=== PATIENT | male | born 1975 | race Caucasian/White ===

== ENCOUNTER 2017-05-03 13:02 | Outpatient (RCR) | payer MEDICAID ==
[~2017-05-03 13:02] MED LIST: HALO5TAB17; HYDR1TAB PO; LEVO75TA57; LITH8SOL6; LRT10T PO; LVT.1T PO; MUPI22OI29 EXT; NAPR-243 PO; NAPR-915 PO; NF-FLON16G; PROP1TAB77 PO; SULF1TAB7 PO; [UNRECOGNIZED DRUG - CODE] PO
== END 2017-05-03 13:25 | disposition home or self-care (01) ==
PROVIDERS: ATTEND Family Medicine
DX: M25.561 Pain in right knee (principal)

== ENCOUNTER → 2017-06-06 | Outpatient (CLI) | payer MEDICAID ==
--- NOTE | 2017-06-06 15:26 | Diagnostic Imaging Report ---
PROCEDURE: MRI right joint lower extremity without contrast. TECHNIQUE: Multiplanar, multisequence non contrast-enhanced MRI of the right lower extremity was accomplished. INDICATION: Knee pain. FINDINGS: There are no previous MRI examinations available for comparison. The plain film examination of the right knee performed on 12/22/2015 failed to show any sign of an acute abnormality. On this study, however, there is deformity of the lateral half of the patella. I suspect that this is a sequela of prior trauma. The patellofemoral space itself is fairly well maintained. There is no other abnormal signal arising from the osseous structures to suggest bone edema or a fracture. There is mild degenerative disease involving the articular surface of the medial femoral condyle. The articular surface of the lateral femoral condyle is fairly well maintained. The anterior and posterior cruciate ligaments are intact. The anterior cruciate ligament is not as distinct as usually seen, but there is no clear evidence for a tear. The quadriceps and infrapatellar tendons, the collateral ligaments, the biceps femoris tendon, and the iliotibial band are unremarkable for an acute abnormality. There is no abnormal signal arising from either meniscus to indicate a tear. There is a small joint effusion present. There is no sign of a Walsh's cyst. IMPRESSION: 1. There is deformity of the lateral half of the patella. Most likely, this is a sequela of prior trauma. There is no acute bony abnormality identified. 2. The anterior cruciate ligament is not as distinct as usually seen, but the ACL appears to be intact. The other major ligaments and tendons are unremarkable for an acute abnormality. 3. There is no evidence for a tear of either meniscus. Dictated by: Dictated on workstation # [id number]
== END ==
LOC: RAD 13:13
PROVIDERS: ATTEND Family Medicine
DX: M22.8X1 Other disorders of patella, right knee (principal); M25.461 Effusion, right knee
CPT/HCPCS: 73721

== ENCOUNTER 2017-06-16 00:36 | Emergency (ER) | payer MEDICARE, MEDICAID ==
[~2017-06-16] VITALS: Ht 180.3 cm; Wt 88.5 kg
--- NOTE | 2017-06-16 00:55 | ED Integumentary General ---
General Chief Complaint: Bite-Animal/Human/Insect Stated Complaint: DOG BITE Nursing Triage Note: Patient reports being bit by a dog 2 hours ago on L calf Source: patient, EMS Exam Limitations: no limitations History of Present Illness Date Seen by Provider: Jun 16, 2017 Time Seen by Provider: 00:42 Initial Comments The patient presents to ER by EMS with a chief complaint of 2 hours prior to arrival he was walking down an alley way towards a friend's house when a dog bit him on the left calf through his blue jeans. It did not draw much blood and his pain is under control. He had a tetanus shot in 2014 at this ER. The clinical nurse leader of the dog said that the dog was up-to-date on its vaccinations but one of the neighbor said it was not. The patient has thyroid disorder but no other significant medical history. He is not having any fevers, chills, nausea, vomiting. EMS reports the wound is scabbed over by the time they got to it. Allergies and Home Medications Allergies Uncoded Allergies: BEE AND WASPS (Allergy, Unknown, 11/04/14) POISON YASMINE AND OAK (Allergy, Unknown, 11/04/14) Home Medications Hydrocodone Bit/Acetaminophen 1 Each Tablet, 1-2 EACH PO Q4HR PRN Prescribed by: SUSAN CABALLERO on 06/17/102114 Levothyroxine Sodium 100 Mcg Tablet, 1 EACH PO DAILY, (Reported) Loratadine 10 Mg Box, 1 EACH PO DAILY PRN, (Reported) Naproxen 500 Mg Tablet, 500 MG PO Q12H PRN for PAIN Prescribed by: DEQUAN SWEENEY on 11/04/14 0257 Patient Home Medication List Home Medication List Reviewed: Yes Constitutional: No chills, No diaphoresis, No fever, No malaise EENTM: No ear discharge, No ear pain Respiratory: No cough, No short of breath Cardiovascular: No chest pain, No palpitations Gastrointestinal: No abdominal pain, No constipation, No diarrhea Genitourinary: No discharge, No dysuria Musculoskeletal: No back pain, No joint pain Skin: see HPI Past Izpgtav-Nziequ-Cnikiw Hx Patient Social History Alcohol Use: Denies Use Recreational Drug Use: Yes (SMOKES 1 PPD) Recent Foreign Travel: No Contact w/Someone Who Travel: No Recent Infectious Disease Expo: No Physical Abuse: No Sexual Abuse: No Past Medical History Surgeries: Yes Orthopedic Respiratory: No Cardiac: No Neurological: No Gastrointestinal: No Musculoskeletal: No Endocrine: Yes Hypothyroidsim Cancer: No 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) Anxiety, Personality Disorder Nursing Suicide Risk Score: 0 Integumentary: No Blood Disorders: No Physical Exam Vital Signs Vital Signs - First Documented 06/16/17 00:40 Temp 98.2 Pulse 78 Resp 18 B/P (MAP) 122/87 (99) Pulse Ox 97 Capillary Refill : Less Than 3 Seconds General Appearance: WD/WN, no apparent distress HEENT: PERRL/EOMI, pharynx normal Cardiovascular: normal peripheral pulses, no edema, no murmur Respiratory: no respiratory distress, no accessory muscle use Gastrointestinal: non tender, soft Neurologic/Psychiatric: alert, oriented x 3 Skin: other (posterior left calf with a 2 mm wide very superficial puncture of the epidermis but not through the dermis and very small flap of skin. No other wounds seen.) Progress/Results/Core Measures Vital Signs/I&O 06/16/17 00:40 Temp 98.2 Pulse 78 Resp 18 B/P (MAP) 122/87 (99) Pulse Ox 97 Blood Pressure Mean: 99 Progress Note : Time: 00:52 Progress Note The wound was cleaned thoroughly with chlorhexidine soap water, sterile saline and then based in Betadine. The wound was explored using sterile forceps and found that there was no actual puncture wound through the dermis just a flap of skin about 2 x 2 millimeters. The flap of skin was excised and irrigated thoroughly and then bathed in Betadine. The wound will be dressed and the patient was counseled how to keep it clean. Because of the very superficial nature of the wound and the non-concerning behavior of the dog per the patient history we will clean this wound locally dress it and let him go home without antibiotics or other prophylaxis. Tetanus shot is up-to-date. We have encouraged him to keep an eye on the dog and if has any problems the first 10 days report to his primary care doctor immediately. Departure Impression Primary Impression: Dog bite Qualified Codes: W54.0XXA - Bitten by dog, initial encounter Disposition: 01 HOME, SELF-CARE Condition: Stable Departure-Patient Inst. Decision time for Depature: 00:54 Referrals: LAURY FALLON MD (PCP/Family) Primary Care Physician Patient Instructions: Animal Bites (DC) Add. Discharge Instructions: Clean the wound with soap and water at least once a day. You may put a Band-Aid over the wound to heal like. Antibiotics are not necessary but if you start to have redness, swelling, tightness or pain in the leg you can follow-up with the primary care physician. All discharge instructions reviewed with patient and/or family. Voiced understanding. Copy Copies To 1: LAURY FALLON MD, TITUS J Jun 16, 2017 00:55
[2017-06-16 00:57] VITALS: BP 122/87
== END 2017-06-16 00:57 | disposition home or self-care (01) ==
LOC: EDUNIT# 00:36 → ER 00:37
DX: S81.852A Open bite, left lower leg, initial encounter (principal); E03.9 Hypothyroidism, unspecified; F41.9 Anxiety disorder, unspecified; Z91.030 Bee allergy status; W54.0XXA Bitten by dog, initial encounter
CPT/HCPCS: 99283

== ENCOUNTER 2017-09-29 20:17 | Emergency (ER) | payer MEDICARE, MEDICAID ==
[~2017-09-29] VITALS: Ht 177.8 cm; Wt 99.8 kg
[2017-09-29] MEDS ORDERED: RISP12.5 (20:23)
[2017-09-29] MEDS ORDERED: MONT10TA24 (20:23)
[2017-09-29] MEDS ORDERED: SIMV10TA3 (20:23)
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
[2017-09-29] MEDS ORDERED: TETANUS,DIPTH,PERTUSS P/F (BOOSTRIX) 0.5 ML VIAL IM ONE (20:30)
[2017-09-29] MEDS ORDERED: NS 100 ML (IVPB) BAG IV ONE (20:30)
[2017-09-29] MEDS ORDERED: IOHEXOL 350 MG/ML 100 ML (OMNIPAQUE 350) VIAL IV ONE (20:30)
[2017-09-29 20:45] LABS: BASOPHILS % (AUTO) 0 % (0-10); EOSINOPHILS # (AUTO) 0.1 10^3/uL (0.0-0.3); EOSINOPHILS % (AUTO) 1 % (0-10); HEMATOCRIT 40 % (40-54); LYMPHOCYTES # (AUTO) 3.1 X 10^3 (1.0-4.0); LYMPHOCYTES % (AUTO) 41 % (12-44); MEAN CORPUSCULAR HEMOGLOBIN 31 PG (25-34); MEAN CORPUSCULAR HGB CONC 35 G/DL (32-36); MEAN CORPUSCULAR VOLUME 89 FL (80-99); MEAN PLATELET VOLUME 9.3 FL (7.4-10.4); MONOCYTES # (AUTO) 0.5 X 10^3 (0.0-1.0); MONOCYTES % (AUTO) 7 % (0-12); NEUTROPHILS # (AUTO) 3.9 X 10^3 (1.8-7.8); NEUTROPHILS % (AUTO) 51 % (42-75); PLATELET COUNT 299 10^3/uL (130-400); RED BLOOD COUNT 4.48 10^6/uL (4.35-5.85); RED CELL DISTRIBUTION WIDTH 12.7 % (10.0-14.5); WHITE BLOOD COUNT 7.6 10^3/uL (4.3-11.0)
[2017-09-29 21:03] LABS: ALANINE AMINOTRANSFERASE 27 U/L (0-55); ALBUMIN 4.2 GM/DL (3.2-4.5); ALKALINE PHOSPHATASE 77 U/L (40-136); BILIRUBIN,TOTAL 0.4 MG/DL (0.1-1.0); BUN/CREATININE RATIO 17; CALCIUM 9.6 MG/DL (8.5-10.1); CARBON DIOXIDE 22 MMOL/L (21-32); CHLORIDE 108 MMOL/L (98-107); CREATININE SERUM 0.89 MG/DL (0.60-1.30); GFR ESTIMATED > 60; GLUCOSE 111 MG/DL (70-105); POTASSIUM 3.8 MMOL/L (3.6-5.0); SODIUM 141 MMOL/L (135-145); TOTAL PROTEIN 6.9 GM/DL (6.4-8.2)
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
--- NOTE | 2017-09-29 21:15 | Diagnostic Imaging Report ---
INDICATION: Left arm pain, trauma COMPARISON: None FINDINGS: Two views of the left humerus demonstrate no fracture or dislocation. The articular surfaces are normal. IMPRESSION: Negative left humerus Dictated by: Dictated on workstation # [id number]
[2017-09-29] MEDS ORDERED: RX-CEPHALEXIN (KEFLEX) 250 MG CAP PPK#4 PO STA (21:19)
[2017-09-29] MEDS ORDERED: RX-HYDROCODONE/APAP 5/325 MG #4 TAB PK PO PRN (21:30)
[2017-09-29 21:31] VITALS: BP 118/78
== END 2017-09-29 21:32 | disposition home or self-care (01) ==
LOC: EDUNIT# 20:17 → ER 20:20
DX: S50.812A Abrasion of left forearm, initial encounter (principal); S30.811A Abrasion of abdominal wall, initial encounter; E03.9 Hypothyroidism, unspecified; F41.9 Anxiety disorder, unspecified; R40.2142 Coma scale, eyes open, spontaneous, at arrival to emergency department; R40.2252 Coma scale, best verbal response, oriented, at arrival to emergency department; R40.2362 Coma scale, best motor response, obeys commands, at arrival to emergency department; V18.4XXA Pedal cycle driver injured in noncollision transport accident in traffic accident, initial encounter
CPT/HCPCS: 36415; 70450; 71260; 72125; 73060; 74177; 80053; 80320; 85025; 90471; 90715

== ENCOUNTER 2018-02-10 19:16 | Inpatient (IN) | payer MEDICARE, MEDICAID ==
[~2018-02-10] VITALS: Ht 177.8 cm; Wt 108.0 kg
[~2018-02-10 19:16] MED LIST changes: +MONT10TA24 PO; +RISP12.5; +SIMV10TA3
[2018-02-10] MEDS ORDERED: VANCOMYCIN INJECTION 1,500 MG in NS IV 500 ML 500 ML IV SCH (19:30)
[2018-02-10] MEDS ORDERED: IBUPROFEN 800 MG (MOTRIN) TAB PO ONE (19:30)
[2018-02-10] MEDS ORDERED: fentaNYL INJECTION 100 MCG/2 ML AMP IVP ONE (19:30)
[2018-02-10] MEDS ORDERED: ENOXAPARIN 100 MG/1 ML (LOVENOX) SYR SC ONE (19:30)
[2018-02-10] MEDS ORDERED: cefTRIAXone FOR IV USE 1,000 MG in NS (IVPB) 50 ML IV ONE (19:30)
[2018-02-10] MEDS ORDERED: NS IV 1000 ML 1,000 ML IV SCH (19:30)
--- NOTE | 2018-02-10 19:34 | ED Lower Extremity ---
General Stated Complaint: LEFT LEG SWELLING,FEVER Source: patient, caregiver Exam Limitations: no limitations History of Present Illness Date Seen by Provider: Feb 10, 2018 Time Seen by Provider: 19:31 Initial Comments This new [facility] client presents to ER with his caregiver with reports of left leg redness swelling and pain since yesterday. No known injuries. He has never had this happen before. He did notice some fevers and chills earlier today. He states this began yesterday while he was at work. He is relatively high functioning MR. Onset: yesterday Severity: moderate Pain/Injury Location: left knee Modifying Factors: Worse With Movement Allergies and Home Medications Allergies Uncoded Allergies: BEE AND WASPS (Allergy, Unknown, 11/04/14) POISON YASMINE AND OAK (Allergy, Unknown, 11/04/14) Home Medications Levothyroxine Sodium 100 Mcg Tablet, 1 EACH PO DAILY, (Reported) Loratadine 10 Mg Box, 1 EACH PO DAILY PRN, (Reported) Patient Home Medication List Home Medication List Reviewed: Yes Review of Systems Constitutional: see HPI, chills, fever EENTM: see HPI Respiratory: no symptoms reported Cardiovascular: no symptoms reported Genitourinary: no symptoms reported Musculoskeletal: no symptoms reported Skin: see HPI Psychiatric/Neurological: No Symptoms Reported Past Sjndvmu-Vnfcfn-Oxlrne Hx Patient Social History Type Used: Cigarettes Recent Foreign Travel: No Contact w/Someone Who Travel: No Recent Hopitalizations: No Immunizations Up To Date Tetanus Booster (TDap): Less than 5yrs Seasonal Allergies Seasonal Allergies: No Past Medical History Surgeries: Yes Orthopedic Respiratory: No Cardiac: No Neurological: No Gastrointestinal: No Musculoskeletal: No Endocrine: Yes Hypothyroidsim Cancer: No 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) Anxiety, Personality Disorder Integumentary: No Blood Disorders: No Physical Exam Vital Signs Vital Signs - First Documented 02/10/18 19:23 Temp 101.5 Pulse 107 Resp 18 B/P (MAP) 120/87 (98) Pulse Ox 96 O2 Delivery Room Air Capillary Refill : Height, Weight, BMI Height: 5'10.00" Weight: 220lbs. oz. 99.130849ap; 27.19 BMI Method:Stated General Appearance: WD/WN, no apparent distress HEENT: PERRL/EOMI, normal ENT inspection Cardiovascular: no murmur, tachycardia (105 sinus) Respiratory: no respiratory distress, no accessory muscle use Gastrointestinal: normal bowel sounds, non tender Hips: bilateral hip non-tender, bilateral hip normal inspection, bilateral hip normal range of motion Legs: left leg other (circumferential erythema up to the proximal tib-fib on the left. No lymphangitis. Distally, this erythema terminates at the ankle and does not extend distal to that. There is no open or draining wound, no visualized or palpable abscess.) Knees: bilateral knee non-tender, bilateral knee normal inspection, bilateral knee normal range of motion Ankles: bilateral ankle non-tender, bilateral ankle normal inspection, bilateral ankle normal range of motion Feet: bilateral foot non-tender, bilateral foot normal inspection, bilateral foot normal range of motion Neurologic/Psychiatric: alert, normal mood/affect, oriented x 3 Skin: normal color, warm/dry Progress/Results/Core Measures Results/Orders Lab Results Laboratory Tests Test 02/10/18 19:33 Range/Units White Blood Count 11.7 H 4.3-11.0 10^3/uL Red Blood Count 4.42 4.35-5.85 10^6/uL Hemoglobin 13.9 13.3-17.7 G/DL Hematocrit 40 40-54 % Mean Corpuscular Volume 90 80-99 FL Mean Corpuscular Hemoglobin 31 25-34 PG Mean Corpuscular Hemoglobin Concent 35 32-36 G/DL Red Cell Distribution Width 13.2 10.0-14.5 % Platelet Count 210 130-400 10^3/uL Mean Platelet Volume 9.3 7.4-10.4 FL Neutrophils (%) (Auto) 79 H 42-75 % Lymphocytes (%) (Auto) 13 12-44 % Monocytes (%) (Auto) 8 0-12 % Eosinophils (%) (Auto) 0 0-10 % Basophils (%) (Auto) 0 0-10 % Neutrophils # (Auto) 9.2 H 1.8-7.8 X 10^3 Lymphocytes # (Auto) 1.5 1.0-4.0 X 10^3 Monocytes # (Auto) 0.9 0.0-1.0 X 10^3 Eosinophils # (Auto) 0.0 0.0-0.3 10^3/uL Basophils # (Auto) 0.0 0.0-0.1 10^3/uL Sodium Level 134 L 135-145 MMOL/L Potassium Level 3.9 3.6-5.0 MMOL/L Chloride Level 104 98-107 MMOL/L Carbon Dioxide Level 20 L 21-32 MMOL/L Anion Gap 10 5-14 MMOL/L Blood Urea Nitrogen 17 7-18 MG/DL Creatinine 0.99 0.60-1.30 MG/DL Estimat Glomerular Filtration Rate > 60 BUN/Creatinine Ratio 17 Glucose Level 112 H 70-105 MG/DL Lactic Acid Level 0.94 0.50-2.00 MMOL/L Calcium Level 8.9 8.5-10.1 MG/DL Corrected Calcium 9.0 8.5-10.1 MG/DL Total Bilirubin 0.5 0.1-1.0 MG/DL Aspartate Amino Transf (AST/SGOT) 21 5-34 U/L Alanine Aminotransferase (ALT/SGPT) 29 0-55 U/L Alkaline Phosphatase 70 40-136 U/L Total Protein 6.6 6.4-8.2 GM/DL Albumin 3.9 3.2-4.5 GM/DL My Orders Orders - CAMELIA BRAN APRN Blood Culture (02/10/18 19:27) Lactic Acid Analyzer (02/10/18 19:27) Cbc With Automated Diff (02/10/18:) Comprehensive Metabolic Panel (02/10/18:27) Iv Heplock-Insert (Order) (02/10/18:27) Ibuprofen Tablet (Motrin Tablet) (02/10/18 19:30) Fentanyl Injection (Sublimaze Injection (02/10/18 19:30) Ns Iv 1000 Ml (Sodium Chloride 0.9%) (02/10/18 19:30) Ceftriaxone For Iv Use (Rocephin For I (02/10/18 19:30) Vancomycin Injection (Vancomycin Injecti (02/10/18 19:30) Enoxaparin Injection (Lovenox Injection) (02/10/18 19:30) Medications Given in ED Current Medications Medications Dose Ordered Sig/Sujatha Route Start Time Stop Time Status Last Admin Dose Admin Enoxaparin Sodium 100 mg ONCE ONCE SC 02/10/18 19:30 02/10/18 19:31 DC 02/10/18 19:48 100 MG Fentanyl Citrate 50 mcg ONCE ONCE IVP 02/10/18 19:30 02/10/18 19:31 DC 02/10/18 19:47 50 MCG Ibuprofen 800 mg ONCE ONCE PO 02/10/18 19:30 02/10/18 19:31 DC 02/10/18 19:47 800 MG Vital Signs/I&O 02/10/18 19:23 Temp 101.5 Pulse 107 Resp 18 B/P (MAP) 120/87 (98) Pulse Ox 96 O2 Delivery Room Air Departure Communication (Admissions) Time/Spoke to Admitting Phy: 20:[address] Ledbetter. We will admit, IV Rocephin and vancomycin and discharged home. 1933- Is tachycardic at 105 on arrival, blood pressure is just fine at 120/87, oxygen saturation 95% on room air. He is febrile at 103.5 despite 1000 mg of Tylenol 2 hours ago. He is alert and oriented and able to converse with me appropriately. He'll need to be admitted for nonpurulent cellulitis. He should also have lower extremity venous Doppler done to rule out DVT though this is unlikely. Ultrasound isn't available at this time so I will order this for tomorrow morning and cover him with Lily ibarra. Impression Primary Impression: Cellulitis of left leg Disposition: HOME, SELF-CARE Condition: Stable Admissions Decision to Admit Reason: Admit from ER (General) Decision to Admit/Date: Feb 10, 2018 Time/Decision to Admit Time: 19:33 Departure-Patient Inst. Referrals: LAURY FALLON MD (PCP/Family) Primary Care Physician CAMELIA BRAN APRN Feb 10, 2018 19:34
[2018-02-10 19:45] LABS: BASOPHILS % (AUTO) 0 % (0-10); EOSINOPHILS % (AUTO) 0 % (0-10); HEMATOCRIT 40 % (40-54); HEMOGLOBIN 13.9 G/DL (13.3-17.7); LYMPHOCYTES # (AUTO) 1.5 X 10^3 (1.0-4.0); LYMPHOCYTES % (AUTO) 13 % (12-44); MEAN CORPUSCULAR HEMOGLOBIN 31 PG (25-34); MEAN CORPUSCULAR HGB CONC 35 G/DL (32-36); MEAN CORPUSCULAR VOLUME 90 FL (80-99); MEAN PLATELET VOLUME 9.3 FL (7.4-10.4); MONOCYTES # (AUTO) 0.9 X 10^3 (0.0-1.0); MONOCYTES % (AUTO) 8 % (0-12); NEUTROPHILS # (AUTO) 9.2 X 10^3 (1.8-7.8); NEUTROPHILS % (AUTO) 79 % (42-75); PLATELET COUNT 210 10^3/uL (130-400); RED BLOOD COUNT 4.42 10^6/uL (4.35-5.85); RED CELL DISTRIBUTION WIDTH 13.2 % (10.0-14.5); WHITE BLOOD COUNT 11.7 10^3/uL (4.3-11.0)
[2018-02-10 20:05] LABS: ALANINE AMINOTRANSFERASE 29 U/L (0-55); ALBUMIN 3.9 GM/DL (3.2-4.5); ALKALINE PHOSPHATASE 70 U/L (40-136); BILIRUBIN,TOTAL 0.5 MG/DL (0.1-1.0); BUN/CREATININE RATIO 17; CALCIUM 8.9 MG/DL (8.5-10.1); CARBON DIOXIDE 20 MMOL/L (21-32); CHLORIDE 104 MMOL/L (98-107); CREATININE SERUM 0.99 MG/DL (0.60-1.30); GFR ESTIMATED > 60; GLUCOSE 112 MG/DL (70-105); POTASSIUM 3.9 MMOL/L (3.6-5.0); SODIUM 134 MMOL/L (135-145); TOTAL PROTEIN 6.6 GM/DL (6.4-8.2)
--- OUTSIDE RECORDS SUMMARY | 2018-02-10 20:31 | XMS REPORT ---
Author Author JEYSON TULIO Organization [facility] Address [address] [place] [address] Care Team Providers Care Subscription Clerk Name Role Phone JEYSONTULIO Unavailable PROBLEMS Type Condition ICD9-CM Code [id number] Code Onset Dates Condition Status SNOMED Code Problem Anxiety F41.9 Active 96728353 Problem Intellectual disability F79 Active 18050861 Problem Intermittent explosive disorder F63.81 Active 11146844 ALLERGIES Substance Reaction Event Type Date Status Poison idalia and Poison [place] hives Non Drug Allergy July, Active Bees and Wasps anaphylaxis Non Drug Allergy July, Active ENCOUNTERS Encounter Location Date Diagnosis [place] [address] [place] [id number] [place] [address] 94484- 0496 Dec, [place] [address] [address]- 6867 Oct, Intermittent explosive disorder F63.81 ; Intellectual disability F79 ; Anxiety F41.9 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 [place] [id number] [place] [address] 84352- 7586 Sep, Intermittent explosive disorder F63.81 ; Intellectual disability F79 and Anxiety F41.9 [place] [address] [place] [address] [id number] [place] [address] 26428- 3136 July, Intermittent explosive disorder F63.81 ; Intellectual disability F79 and Anxiety F41.9 [place] [id number] [place] [address] 32398- 5709 Mar, Intermittent explosive disorder F63.81 ; Intellectual disability F79 and Anxiety F41.9 [place] [id number] [place] [address] 08804- 0046 Dec, Intermittent explosive disorder F63.81 ; Intellectual disability F79 and Anxiety F41.9 [facility] [address] [place] [address] [id number]- 5130 Sep, [facility] [id number] [place] [address] 90682- 5542 Sep, Intermittent explosive disorder F63.81 ; Intellectual disability F79 and Anxiety F41.9 [facility] [id number] [place] [address] [id number] May, Dental examination Z01.20 [facility] [id number] [place] [address] 11561- 0945 Mar, Intermittent explosive disorder F63.81 [facility] [id number] [place] [address] 80968- 6264 Jan, Intermittent explosive disorder F63.81 [facility] [id number] [place] [address] [phone] Dec, Dental examination Z01.20 [facility] [id number] [place] [address] 46246- 8366 Nov, [facility] [id number] [place] [address] 19476- 2566 Aug, Intermittent explosive disorder F63.81 [facility] [id number] [place] [address] 31049- 6362 May, Intermittent explosive disorder F63.81 [facility] [address] [place] [address] [phone] Apr, Dental examination Z01.20 [facility] [id number] [place] [address] [phone] Feb, Dental examination Z01.20 [facility] [id number] [place] [address] 23030- 3166 Feb, Intermittent explosive disorder F63.81 [facility] [id number] [place] [address] 04512- 5114 Nov, Mood disorder 296.90 and Intermittent explosive disorder 312.34 [facility] [address] [id number] [phone] 12 Aug, 2014 Dental examination V72.2 [facility] [address] [address] 14 Jun, 2014 [facility] [id number] [place] [address] 10267- 4638 Jun, [facility] [address] [place] [address] 81075- 9882 May, [facility] [id number] [place] [address] 62695- 8338 May, [facility] [id number] [place] [address] 13950- 2633 Feb, [facility] [id number] [place] [address] 95017- 4531 Feb, [facility] [address] [address] 0738 Dec, [facility] [address] [place] [address] 96618- 6250 Dec, [facility] [address] [address]- 5011 Nov, [facility] [address] [address]- 0122 Nov, [facility] [address] [address]- 5402 Sep, [facility] [id number] [place] [address] 43103- 6036 Sep, [facility] [address] [address]- 4902 Apr, [facility] [id number] [place] [address] 68179- 1179 Apr, [facility] [address] [facility] [id number] [place] [address]- 0194 Jan, [facility] [address] [facility] [id number] [place] [address] Jan, [facility] [address] [facility] [id number] [place] [address]- 6669 Oct, [facility] [address] [facility] [id number] [place] [address]- 8526 Sep, [facility] [address] [facility] [id number] [place] [address]- 3750 Jun, [facility] [address] [facility] [id number] [place] [address]- 9679 Feb, [facility] [address] [facility] [id number] [place] [address]- 8428 Feb, [facility] [address] [facility] [id number] [address]- 0887 Dec, [facility] [address] [facility] [id number] [address]- 4794 Dec, [facility] [address] [facility] [id number] [place] [address]- 0175 Dec, [facility] [address] [facility] [id number] [address]- 5927 Dec, [facility] [address] [facility] [id number] [place] [address]- 7381 Oct, [facility] [address] [facility] [id number] [place] [address]- 6775 Sep, [facility] [address] [facility] [id number] [place] [address]- 5214 Jun, [facility] [address] [facility] [id number] [address]- 9668 Jan, IMMUNIZATIONS No Known Immunizations SOCIAL HISTORY Never Assessed REASON FOR VISIT f/u DAJA PLAN OF CARE Activity Details Follow Up 3 Months Reason: f/u VITAL SIGNS Height 71 in 2017-07-05 Weight 220 lbs 2017-07-05 Heart Rate 84 bpm 2017-07-05 Respiratory Rate 20 2017-07-05 BMI 30.68 kg/m2 2017-07-05 Blood pressure systolic 118 mmHg 2017-07-05 Blood pressure diastolic 74 mmHg 2017-07-05 MEDICATIONS Medication Instructions Dosage Frequency Start Date End Date Duration Status Ventolin HFA 90 MCG/ACT Inhalation every 4 hrs 2 puffs as needed 4h Active Synthroid 100 MCG Orally Once a day 1 tablet 24h Active Zoloft 50 mg Orally Once a day 1 tablet 24h Active HydrOXYzine HCl 50 mg Orally Once a day as needed for anxiety/anger 1-2 tablets Active Lotrisone 1-0.05 % 1 inch by Topical route 2 times per day May, Active Flexeril 10 MG Orally Three times a day 1 tablet 8h Active Robitussin DM 100-10 MG/5ML Orally every 4 hrs 10 ml as needed 4h Active Tylenol 325 MG Orally every 6 hrs by Oral route q6hr prn pain 6h Jun, Active Zocor 10 mg 1 Tablet by Oral route 1 time per day Oct, Active Visine Tears Active Singulair 10 MG Orally Once a day 1 tablet in the evening 24h Active Afrin Nasal [place] Not-Taking immodium 1 tab Active Motrin 800 MG Orally Three times a day 1 tablet 8h Active Mucinex D 60-600 MG Orally Twice a day 1 tablet as needed 12h Active RESULTS No Results PROCEDURES No Known procedures INSTRUCTIONS MEDICATIONS ADMINISTERED No Known Medications MEDICAL (GENERAL) HISTORY Type Description Date Medical History Thyroid Problems Medical History HLP Medical History Back Trouble Medical History Denies any hx of heart problem or seizure Surgical History Left Knee surgery 2015 Hospitalization History Surgery 2015 Hospitalization History [facility] several times
--- OUTSIDE RECORDS SUMMARY | 2018-02-10 20:31 | XMS REPORT ---
Author Author JEYSON TULIO Organization [facility] Address [address] [place] [address] Care Team Providers Care Receiving And Processing Supervisor Name Role Phone JEYSONTULIO Unavailable PROBLEMS Type Condition ICD9-CM Code [id number] Code Onset Dates Condition Status SNOMED Code Problem Anxiety F41.9 Active 04904570 Problem Intellectual disability F79 Active 90418503 Problem Intermittent explosive disorder F63.81 Active 33414142 ALLERGIES Substance Reaction Event Type Date Status Poison idalia and Poison [place] hives Non Drug Allergy Sep, Active Bees and Wasps anaphylaxis Non Drug Allergy Sep, Active ENCOUNTERS Encounter Location Date Diagnosis [place] [address] [place] [address] [id number] [place] [address] 10778- 9026 Dec, [place] [id number] [place] [address] 28830- 0005 Oct, Intermittent explosive disorder F63.81 ; Intellectual disability F79 ; Anxiety F41.9 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 [place] [id number] [place] [address] 78699- 9076 Sep, Intermittent explosive disorder F63.81 ; Intellectual disability F79 and Anxiety F41.9 [place] [address] [place] [address] [id number] [place] [address] 60409- 8347 July, Intermittent explosive disorder F63.81 ; Intellectual disability F79 and Anxiety F41.9 [place] [id number] [place] [address] 96194- 7403 Mar, Intermittent explosive disorder F63.81 ; Intellectual disability F79 and Anxiety F41.9 [place] [id number] [place] [address] 70931- 2853 Dec, Intermittent explosive disorder F63.81 ; Intellectual disability F79 and Anxiety F41.9 [facility] [address] [place] [address] [id number]- 9738 Sep, [facility] [id number] [place] [address] 40993- 0907 Sep, Intermittent explosive disorder F63.81 ; Intellectual disability F79 and Anxiety F41.9 [facility] [id number] [place] [address] [phone] May, Dental examination Z01.20 [facility] [id number] [place] [address] 46991- 1764 Mar, Intermittent explosive disorder F63.81 [facility] [id number] [place] [address] 17725- 1477 Jan, Intermittent explosive disorder F63.81 [facility] [id number] [place] [address] [phone] Dec, Dental examination Z01.20 [facility] [id number] [place] [address] 72693- 2303 Nov, [facility] [id number] [place] [address] 69843- 4587 Aug, Intermittent explosive disorder F63.81 [facility] [id number] [place] [address] 23534- 7851 May, Intermittent explosive disorder F63.81 [facility] [address] [place] [address] [id number] Apr, Dental examination Z01.20 [facility] [id number] [place] [address] [id number] Feb, Dental examination Z01.20 [facility] [id number] [place] [address] 97244- 9006 Feb, Intermittent explosive disorder F63.81 [facility] [id number] [place] [address] 11816- 3272 Nov, Mood disorder 296.90 and Intermittent explosive disorder 312.34 [facility] [address] [id number] [id number] 12 Aug, 2014 Dental examination V72.2 [facility] [address] [address]- 0130 14 Jun, 2014 [facility] [id number] [place] [address] 52831- 6790 Jun, [facility] [id number] [place] [address] 76859- 2467 May, [facility] [id number] [place] [address] 98533- 2646 May, [facility] [id number] [place] [address] 12420- 7448 Feb, [facility] [id number] [place] [address] 51585- 3708 Feb, [facility] [address] [address]- 1760 Dec, [facility] [id number] [place] [address] 34511- 1908 Dec, [facility] [address], [place] [address]- 5073 Nov, [facility] [address], [place] [address]- 8932 Nov, [facility] [address], [place] [address]- 9514 Sep, [facility] [id number] [place] [address] 25633- 1169 Sep, [facility] [address], [place] [address]- 2506 Apr, [facility] [id number] [place] [address] 37556- 6153 Apr, [facility] [address] [facility] [id number] [place] [address]- 5946 Jan, [facility] [address] [facility] [id number] 5259 Jan, [facility] [address] [facility] [id number] [place] [address]- 4623 Oct, [facility] [address] [facility] [id number] [place] [address]- 5673 Sep, [facility] [address] [facility] [id number] [place] [address]- 3069 Jun, [facility] [address] [facility] [id number] [place] [address]- 0053 Feb, [facility] [address] [facility] [id number], [place] [address]- 5741 Feb, [facility] [address] [facility] [id number], [place] [address]- 9789 Dec, [facility] [address] [facility] [id number], [place] [address]- 7655 Dec, [facility] [address] [facility] [id number], [place] [address]- 8078 Dec, [facility] [address] [facility] [id number], [place] [address]- 1975 Dec, [facility] [address] [facility] [id number], [place] [address]- 2309 Oct, [facility] [address] [facility] [id number], [place] [address]- 8839 Sep, [facility] [address] [facility] [id number], [place] [address]- 7943 Jun, [facility] [address] [facility] [id number], [place] [address]- 2762 Jan, IMMUNIZATIONS No Known Immunizations SOCIAL HISTORY Never Assessed REASON FOR VISIT f/u-Claudio RUANO PLAN OF CARE Activity Details Follow Up 4 Weeks Reason: f/u VITAL SIGNS Height 71 in 2017-09-06 Weight 212.2 lbs 2017-09-06 Heart Rate 86 bpm 2017-09-06 Respiratory Rate 20 2017-09-06 BMI 29.59 kg/m2 2017-09-06 Blood pressure systolic 118 mmHg 2017-09-06 Blood pressure diastolic 62 mmHg 2017-09-06 MEDICATIONS Medication Instructions Dosage Frequency Start Date End Date Duration Status Motrin 800 MG Orally Three times a day 1 tablet 8h Active Zocor 10 mg 1 Tablet by Oral route 1 time per day Oct, Active Robitussin DM 100-10 MG/5ML Orally every 4 hrs 10 ml as needed 4h Active immodium 1 tab Active Flexeril 10 MG Orally Three times a day 1 tablet 8h Not-Taking HydrOXYzine HCl 50 mg Orally Once a day as needed for anxiety/anger 1-2 tablets Active Lotrisone 1-0.05 % 1 inch by Topical route 2 times per day May, Active Afrin Nasal [place] Not-Taking Ventolin HFA 90 MCG/ACT Inhalation every 4 hrs 2 puffs as needed 4h Active Visine Tears Active Synthroid 100 MCG Orally Once a day 1 tablet 24h Active Risperdal Consta 12.5 MG Intramuscular once every two weeks 1 injection Sep, 28 days Active Mucinex D 60-600 MG Orally Twice a day 1 tablet as needed 12h Active Zoloft 50 mg Orally Once a day 1 tablet 24h Active Singulair 10 MG Orally Once a day 1 tablet in the evening 24h Active Tylenol 325 MG Orally every 6 hrs by Oral route q6hr prn pain 6h Jun, Active RESULTS No Results PROCEDURES No Known procedures INSTRUCTIONS MEDICATIONS ADMINISTERED No Known Medications MEDICAL (GENERAL) HISTORY Type Description Date Medical History Thyroid Problems Medical History HLP Medical History Back Trouble Medical History Denies any hx of heart problem or seizure Surgical History Left Knee surgery 2015 Hospitalization History Surgery 2015 Hospitalization History [facility] several times
--- OUTSIDE RECORDS SUMMARY | 2018-02-10 20:31 | XMS REPORT ---
Author Author JEYSON TULIO Organization [facility] Address [address] [place] [address] Care Team Providers Care Flexible Babysitter Name Role Phone JEYSONTULIO Unavailable PROBLEMS Type Condition ICD9-CM Code JIX19-YH Code Onset Dates Condition Status SNOMED Code Problem Anxiety F41.9 Active 94670152 Problem Intellectual disability F79 Active 45291213 Problem Intermittent explosive disorder F63.81 Active 65957759 ALLERGIES Substance Reaction Event Type Date Status Poison idalia and Poison [place] hives Non Drug Allergy Oct, Active Bees and Wasps anaphylaxis Non Drug Allergy Oct, Active ENCOUNTERS Encounter Location Date Diagnosis [place] [address] [id number] [place] [phone]- 6743 Dec, [place] [address] [address] Oct, Intermittent explosive disorder F63.81 ; Intellectual disability F79 ; Anxiety F41.9 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 [place] [id number] [place] [address] 49561- 5321 Sep, Intermittent explosive disorder F63.81 ; Intellectual disability F79 and Anxiety F41.9 [place] [id number] [place] [address] 86732- 6453 July, Intermittent explosive disorder F63.81 ; Intellectual disability F79 and Anxiety F41.9 [place] [id number] [place] [address] 99389- 7022 Mar, Intermittent explosive disorder F63.81 ; Intellectual disability F79 and Anxiety F41.9 [place] [id number] [place] [address] 94154- 3965 Dec, Intermittent explosive disorder F63.81 ; Intellectual disability F79 and Anxiety F41.9 [facility] [id number] [place] [address] [id number]- 7546 Sep, [facility] [id number] [place] [address] 12132- 9418 Sep, Intermittent explosive disorder F63.81 ; Intellectual disability F79 and Anxiety F41.9 [facility] [id number] [place] [address] [id number] May, Dental examination Z01.20 [facility] [id number] [place] [address] 63359- 7335 Mar, Intermittent explosive disorder F63.81 [facility] [id number] [place] [address] 05945- 6793 Jan, Intermittent explosive disorder F63.81 [facility] [id number] [place] [address] [id number] Dec, Dental examination Z01.20 [facility] [id number] [place] [address] 86418- 3289 Nov, [facility] [id number] [place] [address] 72222- 3782 Aug, Intermittent explosive disorder F63.81 [facility] [id number] [place] [address] 46494- 4354 May, Intermittent explosive disorder F63.81 [facility] [address] [place] [address] [phone] Apr, Dental examination Z01.20 [facility] [id number] [place] [address] [phone] Feb, Dental examination Z01.20 [facility] [id number] [place] [address] 25781- 7746 Feb, Intermittent explosive disorder F63.81 [facility] [id number] [place] [address] 20313- 2887 Nov, Mood disorder 296.90 and Intermittent explosive disorder 312.34 [facility] [address] [id number] [phone] 12 Aug, 2014 Dental examination V72.2 [facility] [address] [address] 14 Jun, 2014 [facility] [id number] [place] [address] 16292- 5804 Jun, [facility] [id number] [place] [address] 94545- 0397 May, [facility] [id number] [place] [address] 79590- 3608 May, [facility] [id number] [place] [address] 07029- 8136 Feb, [facility] [id number] [place] [address] 49314- 3553 Feb, [facility] [address] [address] 8[address] Dec, [facility] [id number] [place] [address] 01938- 9401 Dec, [facility] [address] [address] 28[address] Nov, [facility] [id number] [address] Nov, [facility] [address] [address] 09[address] Sep, [facility] [id number] [place] [address] 44504- 2616 Sep, [facility] [address] [address] 9072 Apr, [facility] [id number] [place] [address] 67523- 1686 Apr, [facility] [address] [facility] [id number] [place] [address] Jan, [facility] [address] [facility] [id number] [place] [address] Jan, [facility] [address] [facility] [id number] [place] [address]- 1710 Oct, [facility] [address] [facility] [id number] [place] [address] 6569 Sep, [facility] [address] [facility] [id number] [place] [address]- 0941 Jun, [facility] [address] [facility] [id number] [place] [address]- 7387 Feb, [facility] [address] [facility] [id number] [place] [address] 7[address] Feb, [facility] [address] [facility] [id number] [address] 0592 Dec, [facility] [address] [facility] [id number] [place] [address] 6[address] Dec, [facility] [address] [facility] [id number] [place] [address] 3174 Dec, [facility] [address] [facility] [id number] [place] [address] 3555 Dec, [facility] [address] [facility] [id number] [place] [address]- 0519 Oct, [facility] [address] [facility] [id number] [place] [address] 8737 Sep, [facility] [address] [facility] [id number] [place] [address] 1818 Jun, [facility] [address] [facility] [id number] [place] [address] Jan, IMMUNIZATIONS No Known Immunizations SOCIAL HISTORY Never Assessed REASON FOR VISIT f/u PLAN OF CARE Activity Details Follow Up 2 Months Reason: f/u VITAL SIGNS Height 71 in 2017-10-04 Weight 219.2 lbs 2017-10-04 Heart Rate 88 bpm 2017-10-04 Respiratory Rate 20 2017-10-04 BMI 30.57 kg/m2 2017-10-04 Blood pressure systolic 116 mmHg 2017-10-04 Blood pressure diastolic 62 mmHg 2017-10-04 MEDICATIONS Medication Instructions Dosage Frequency Start Date End Date Duration Status Afrin Nasal [place] Not-Taking HydrOXYzine HCl 50 mg Orally Once a day as needed for anxiety/anger 1-2 tablets Active Zocor 10 mg 1 Tablet by Oral route 1 time per day Oct, Active Zoloft 50 mg Orally Once a day 1 tablet 24h Active Risperdal Consta 12.5 MG Intramuscular once every two weeks 1 injection 28 days Active Robitussin DM 100-10 MG/5ML Orally every 4 hrs 10 ml as needed 4h Active immodium 1 tab Active Synthroid 100 MCG Orally Once a day 1 tablet 24h Active Lotrisone 1-0.05 % 1 inch by Topical route 2 times per day May, Active Tylenol 325 MG Orally every 6 hrs by Oral route q6hr prn pain 6h Jun, Active Mucinex D 60-600 MG Orally Twice a day 1 tablet as needed 12h Active Visine Tears Active Flexeril 10 MG Orally Three times a day 1 tablet 8h Not-Taking Singulair 10 MG Orally Once a day 1 tablet in the evening 24h Active Ventolin HFA 90 MCG/ACT Inhalation every 4 hrs 2 puffs as needed 4h Active Motrin 800 MG Orally Three times a day 1 tablet 8h Active RESULTS No Results PROCEDURES No Known procedures INSTRUCTIONS MEDICATIONS ADMINISTERED No Known Medications MEDICAL (GENERAL) HISTORY Type Description Date Medical History Thyroid Problems Medical History HLP Medical History Back Trouble Medical History Denies any hx of heart problem or seizure Surgical History Left Knee surgery 2015 Hospitalization History Surgery 2015 Hospitalization History [facility] several times
--- OUTSIDE RECORDS SUMMARY | 2018-02-10 20:31 | XMS REPORT | Referral Summary ---
Author Author [facility] Organization [facility] Address Unknown Phone Unavailable Care Team Providers Care Car Retarder Operator Name Role Phone Amanda Carney PCP Encounter VC Date(s): 10/13/15 - 10/15/15 [facility] [address] [place] [address] [phone] Discharge Disposition: 01-Home or Self Care Attending Physician: Ruben Sanchez MD Admitting Physician: Ruben Sanchez MD Vital Signs Most recent to 1 oldest [Reference Range]: Temperature Oral 37.6 degC [35.8-37.3 degC] *HI* (10/14/15 8:00 PM) Temperature Tympanic 36.4 degC [36.6-38.1 degC] *LOW* (10/13/15 4:23 PM) Temperature Temporal 36.1 degC Artery [36.3-37.8 *LOW* degC] (10/15/15 1:00 PM) Apical Heart Rate 14 bpm [60-100 bpm] *LOW* (10/13/15 4:23 PM) Peripheral Pulse 119 bpm Rate [60-100 bpm] *HI* (10/13/15 4:23 PM) Heart Rate Monitored 65 bpm [60-100 bpm] (10/15/15 1:00 PM) Respiratory Rate 18 br/min [14-20 br/min] (10/15/15 1:00 PM) Blood Pressure 113/87 mmHg [90-140/60-90 mmHg] (10/15/15 1:00 PM) Mean Arterial 100 mmHg Pressure, Cuff (10/15/15 1:00 PM) Pulse Rate [60-100 16 bpm bpm] *LOW* (10/13/15 4:10 PM) SpO2 98 % (10/15/15 1:18 PM) Problem List Condition Effective Dates Status Health Status Informant Acute Resolved pain(Confirmed) At risk for Resolved falls(Confirmed)1 At risk for Active infection(Confirmed) 2 At risk of pressure Resolved sore(Confirmed) Impaired skin Active integrity(Confirmed) 3 Impaired spontaneous Active ventilation(Confirme d)4 Knowledge Active deficit(Confirmed)5 1This problem was added by Discern Expert. 2Problem added automatically by system based on initiation of At Risk for Infection in Nutrition Plan of Care 3Problem added automatically by system based on initiation of Impaired Skin Integrity Plan of Care 4Problem added automatically by system based on initiation of Impaired Spontaneous Ventilation Plan of Care 5Problem added automatically by system based on initiation of Knowledge Deficit Plan of Care Allergies, Adverse Reactions, Alerts No Known Medication Allergies Medications acetaminophen 650 mg, Oral, q6hr, pain/fever, 0 Refill(s) Start Date: 10/13/15 Status: Ordered Afrin 0.05% nasal spray 2 sprays, Nasal, BID, Nasal Congestion, 0 Refill(s) Start Date: 10/13/15 Status: Ordered cyclobenzaprine 10 mg, Oral, q8hr, as needed for muscle spasm, 0 Refill(s) Start Date: 10/13/15 Status: Ordered ibuprofen 400 mg, Oral, q6hr, as needed for pain, 0 Refill(s) Start Date: 10/13/15 Status: Ordered Imodium A-D 2 mg, Oral, q4hr, Diarrhea/Loose Stools, 0 Refill(s) Start Date: 10/13/15 Status: Ordered levothyroxine 100 mcg, Oral, Daily, 0 Refill(s) Start Date: 10/13/15 Status: Ordered Lotrisone 1%-0.05% topical cream 1 anne marie, Topical, BID, Rash, 0 Refill(s) Start Date: 10/13/15 Status: Ordered Mucinex 600 mg, Oral, q12hr, Cough/ Congestion, 0 Refill(s) Start Date: 10/13/15 Status: Ordered RisperDAL Consta 12.5 mg, IntraMuscular, q2wk, 0 Refill(s) Start Date: 10/13/15 Status: Ordered Robitussin DM To Go 20 mg-200 mg/10 mL oral liquid 10 mL, Oral, q4hr, as needed for cough, 0 Refill(s) Start Date: 10/13/15 Status: Ordered simvastatin 10 mg, Oral, Bedtime (once a day), 0 Refill(s) Start Date: 10/13/15 Status: Ordered Singulair 10 mg, Oral, qPM, 0 Refill(s) Start Date: 10/13/15 Status: Ordered Results Blood Gases Most recent to 1 oldest [Reference Range]: pH [7.35-7.45] 7.44 (10/14/15 3:55 AM) pCO2 Art [35-45 36 mmHg mmHg] (10/14/15 3:55 AM) Bicarbonate [22-26 24 mEq/L mEq/L] (10/14/15 3:55 AM) Base Excess Art 0 [0-2] (10/14/15 3:55 AM) O2 Sat Art 98.7 % [90.0-97.0 %] *HI* (10/14/15 3:55 AM) pO2 Art [80-100 117 mmHg mmHg] *HI* (10/14/15 3:55 AM) O2 Panel VC + (10/14/15 3:55 AM) Vent Mode AC (10/14/15 3:55 AM) Set Vt 600 mL (10/14/15 3:55 AM) Set Rate 14 br/min (10/14/15 3:55 AM) FiO2 Art [0-100] 40 (10/14/15 3:55 AM) PEEP 5.0 (10/14/15 3:55 AM) Inspiratory Time Art 1.00 seconds (10/14/15 3:55 AM) Spec Site Radial-L (10/14/15 3:55 AM) Hematology Most recent to 1 oldest [Reference Range]: WBC [4.8-10.8 11.0 10*3/uL 10*3/uL] *HI* (10/14/15 3:29 AM) RBC [4.60-6.20] 4.38 *LOW* (10/14/15 3:29 AM) Hgb [14.0-18.0 13.4 gm/dL gm/dL] *LOW* (10/14/15 3:29 AM) Hct [42.0-52.0 %] 40.1 % *LOW* (10/14/15 3:29 AM) MCV [82.0-99.0 fL] 91.6 fL (10/14/15 3:29 AM) MCH [27.0-32.0 pg] 30.6 pg (10/14/15 3:29 AM) MCHC [32.0-36.0 33.4 gm/dL gm/dL] (10/14/15 3:29 AM) RDW [11.5-14.5 %] 13.4 % (10/14/15 3:29 AM) Platelet [150-400 184 10*3/uL 10*3/uL] (10/14/15 3:29 AM) MPV [9.4-12.3 fL] 9.4 fL (10/14/15 3:29 AM) Immature 0.2 % Granulocytes (10/13/15 4:54 PM) [0.0-1.0 %] Neutrophils [51-75 61 % %] (10/13/15 4:54 PM) Lymphocytes [20-46 30 % %] (10/13/15 4:54 PM) Monocytes [4-11 %] 8 % (10/13/15 4:54 PM) Eosinophils [0-4 %] 1 % (10/13/15 4:54 PM) Basophils [0-2 %] 0 % (10/13/15 4:54 PM) Neutro Absolute 7.23 10*3 [1.90-7.00 10*3] *HI* (10/13/15 4:54 PM) Lymph Absolute 3.59 10*3 [0.80-3.30 10*3] *HI* (10/13/15 4:54 PM) [place] Absolute 0.94 10*3 [0.30-1.00 10*3] (10/13/15 4:54 PM) Eos Absolute 0.07 10*3 [0.00-0.50 10*3] (10/13/15 4:54 PM) Baso Absolute 0.03 10*3 [0.00-0.20 10*3] (10/13/15 4:54 PM) Nucleated RBC 0.0 /100 WBC Automated [0 /100 (10/13/15 4:54 PM) WBC] Carboxyhemoglobin 1.6 % [0.0-2.0 %] (10/13/15 4:36 PM) Chemistry Most recent to 1 oldest [Reference Range]: Sodium Lvl [136-144 138 mEq/L mEq/L] (10/14/15 3:29 AM) Potassium Lvl 4.0 mEq/L [3.6-5.1 mEq/L] (10/14/15 3:29 AM) Chloride [99-109 106 mEq/L mEq/L] (10/14/15 3:29 AM) CO2 [22-32 mEq/L] 25 mEq/L (10/14/15 3:29 AM) AGAP [3-20] 7 (10/14/15 3:29 AM) BUN [4-20 mg/dL] 12 mg/dL (10/14/15 3:29 AM) Glucose Lvl [70-100 92 mg/dL mg/dL] (10/14/15 3:29 AM) Creatinine Lvl 1.08 mg/dL [0.64-1.27 mg/dL] (10/14/15 3:29 AM) eGFR [>60] >60 1 (10/14/15 3:29 AM) Calcium Lvl 8.3 mg/dL [8.6-10.0 mg/dL] *LOW* (10/14/15 3:29 AM) Albumin Lvl [3.5-4.8 3.2 gm/dL gm/dL] *LOW* (10/14/15 3:29 AM) Total Protein 6.2 gm/dL [6.1-7.9 gm/dL] (10/13/15 4:54 PM) Globulin [1.9-4.3 2.5 gm/dL gm/dL] (10/13/15 4:54 PM) ALT [17-63 U/L] 30 U/L (10/13/15 4:54 PM) AST [15-41 U/L] 29 U/L (10/13/15 4:54 PM) Alk Phos [26-104 63 U/L U/L] (10/13/15 4:54 PM) Bili Total [0.2-1.2 0.8 mg/dL 2 mg/dL] (10/13/15 4:54 PM) Phosphorus [2.4-4.7 3.1 mg/dL 3 mg/dL] (10/14/15 3:29 AM) Lactic Acid Lvl 2.1 mEq/L [0.5-2.2 mEq/L] (10/13/15 4:54 PM) Prealbumin [18-38 23 mg/dL mg/dL] (10/13/15 4:54 PM) Blood Glucose, 89 mg/dL Capillary [70-100 (10/14/15 4:46 PM) mg/dL] TSH with Reflex Free 2.68 T4 [0.35-5.50] (10/13/15 4:54 PM) 1Result Comment: Multiply eGFR results by 1.21 for race. 2Result Comment: Naproxen, specifically the metabolite O-desmethylnaproxen, may cause spurious elevation in Total Bilirubin levels. 3Result Comment: High dosages of liposomal Amphotericin B (AmBisome) therapy or other drug preparations that use a liposomal envelope to facilitate drug delivery may cause falsely elevated results for phosphorus. Toxicology Most recent to 1 oldest [Reference Range]: U Amphetamine Scrn Negative (10/13/15 5:40 PM) U Cocaine Scrn Negative (10/13/15 5:40 PM) U Cannab Scrn Negative (10/13/15 5:40 PM) U Opiate Scrn Positive *ABN* (10/13/15 5:40 PM) U PCP Scrn Negative (10/13/15 5:40 PM) U Benzodiazepine Positive Scrn *ABN* (10/13/15 5:40 PM) U Barbiturate Scrn Negative (10/13/15 5:40 PM) Methadone Lvl Negative (10/13/15 5:40 PM) Tricyclics Not Detected 1 (10/13/15 5:40 PM) 1Result Comment: Cut-off concentrations: Amphetamines: 1000 ng/mL Cocaine: 300 ng/mL Cannabinoid: 50 ng/mL Opiate: 300 ng/mL Phencyclidine (PCP): 25 ng/mL Benzodiazepine: 200 ng/mL Barbiturate: 200 ng/mL Methadone: 300 ng/mL Tricyclic: 300 ng/mL The urine drug screen assays are qualitative screens. A more specific GC/MS method must be performed to obtain a confirmed analytical result. Unconfirmed screening results must not be used for non-medical purposes(e.g. employment or legal testing) Immunizations No data available for this section Procedures Procedure Date Related Diagnosis Body Site Arterial puncture, withdrawal of blood for 10/14/15 diagnosis Arterial puncture, withdrawal of blood for 10/13/15 diagnosis Arterial puncture, withdrawal of blood for 10/13/15 diagnosis Dressings and/or debridement of 10/13/15 partial-thickness tam, initial or subsequent; small (less than 5% total body surface area) Social History No data available for this section Assessment and Plan No data available for this section
--- OUTSIDE RECORDS SUMMARY | 2018-02-10 20:32 | XMS REPORT ---
Author Author KERRIE HAQUE Organization [facility] Address Unknown Care Team Providers Care Rag Cutting Machine Tender Name Role Phone SHABNAMKERRIE Unavailable PROBLEMS Type Condition ICD9-CM Code [id number] Code Onset Dates Condition Status SNOMED Code Problem Intellectual disability F79 Active 40667734 Problem Anxiety F41.9 Active 49430046 Problem Intermittent explosive disorder F63.81 Active 34625612 ALLERGIES Unknown Allergies SOCIAL HISTORY No smoking Hx information available PLAN OF CARE Activity Details Follow Up 3 Months Reason: VITAL SIGNS Height 71 in 2016-01-11 Weight 225.4 lbs 2016-01-11 Heart Rate 72 bpm 2016-01-11 Respiratory Rate 18 2016-01-11 BMI 31.43 kg/m2 2016-01-11 Blood pressure systolic 115 mmHg 2016-01-11 Blood pressure diastolic 74 mmHg 2016-01-11 MEDICATIONS Medication Instructions Dosage Frequency Start Date End Date Duration Status Tylenol 325 MG Orally every 6 hrs by Oral route q6hr prn pain 6h Jun, Active Zocor 10 mg 1 Tablet by Oral route 1 time per day Oct, Active Naproxen 500 MG Orally Twice a day 1 tablet 12h Active Singulair 10 MG Orally Once a day 1 tablet in the evening 24h Active Lotrisone 1-0.05 % 1 inch by Topical route 2 times per day May, Active Flexeril 10 MG Orally Three times a day 1 tablet 8h Active Motrin 800 MG Orally Three times a day 1 tablet 8h Active Risperdal Consta 12.5 MG Intramuscular every 2 weeks as directed Jan, 28 days Active Afrin Nasal [place] Active Synthroid 100 MCG Orally Once a day 1 tablet 24h Active RESULTS No Results PROCEDURES Procedure Date Ordered Related Diagnosis Body Site Office Visit, Est Pt., Level 3 Jan 11, 2016 IMMUNIZATIONS No Known Immunizations
--- OUTSIDE RECORDS SUMMARY | 2018-02-10 20:32 | XMS REPORT ---
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 Info Not Available Non Drug Allergy Problems Problem Type Condition ICD-9 Code Onset Dates Condition Status Assessment Intermittent explosive disorder 312.34 Active Assessment Mood disorder 296.90 Active Medications Medication Code System Code Instructions Start Date End Date Status Dosage Tylenol [facility] [address]-48 325 MG Orally every 6 hrs June 02, 2012 by Oral route q6hr prn pain Zocor [facility] [address]-38 10 mg Oct 29, 2011 1 Tablet by Oral route 1 time per day Lotrisone [facility] [address]-35 1-0.05 % May 05, 2014 1 inch by Topical route 2 times per day Synthroid [facility] [address]-94 100 MCG Orally Once a day 1 tablet Risperdal Consta [facility] [address]-06 12.5 MG Intramuscular 1 dose every other week Nov 12, 2014 as directed Flexeril [facility] 0 not defined Naproxen [facility] [address]-38 500 MG Orally Twice a day 1 tablet Singulair [facility] [address]-79 10 MG Orally Once a day 1 tablet in the evening Flonase [facility] [address]-70 50 MCG/DOSE Nasally Once a day 1 spray in each nostril Procedures Procedure Coding System Code Date Office Visit, Est Pt., Level 3 CPT-4 83943 Nov 12, 2014 Vital Signs Date/Time: Nov 12, 2014 Temperature 98.0 F Weight 202.8 lbs Height 71 in BMI 28.28 Index Blood Pressure Diastolic 60 mmHg Blood Pressure Systolic 90 mmHg Cardiac Monitoring Heart Rate 60 bpm Results No Known Results Summary Purpose [employer] Submission
--- OUTSIDE RECORDS SUMMARY | 2018-02-10 20:32 | XMS REPORT ---
Author Author KERRIE HAQUE [facility] Address Unknown Care Team Providers Care Security Patrol Officer Name Role Phone KERRIE HAQUE Unavailable PROBLEMS Type Condition ICD9-CM Code [id number] Code Onset Dates Condition Status SNOMED Code Problem Intermittent explosive disorder F63.81 Active 11535639 ALLERGIES Unknown Allergies SOCIAL HISTORY No smoking Hx information available PLAN OF CARE VITAL SIGNS MEDICATIONS Medication Instructions Dosage Frequency Start Date End Date Duration Status Risperdal Consta 12.5 MG Intramuscular every 14 days as directed Aug, 28 days Active RESULTS No Results PROCEDURES No Known procedures IMMUNIZATIONS No Known Immunizations
--- OUTSIDE RECORDS SUMMARY | 2018-02-10 20:32 | XMS REPORT ---
Author Author KERRIE Perales Organization [facility] Address Unknown Care Team Providers Care Review Assistant Name Role Phone KERRIE Perales Unavailable PROBLEMS Type Condition ICD9-CM Code [id number] Code Onset Dates Condition Status SNOMED Code Problem Anxiety F41.9 Active 10855294 Problem Intellectual disability F79 Active 16339990 Problem Intermittent explosive disorder F63.81 Active 68987126 ALLERGIES Substance Reaction Event Type Date Status Poison idalia and Poison [place] hives Non Drug Allergy Mar, Active Bees and Wasps anaphylaxis Non Drug Allergy Mar, Active SOCIAL HISTORY No smoking Hx information available PLAN OF CARE Activity Details Follow Up 3 Months Reason: VITAL SIGNS Height 71 in 2016-04-02 Weight 223.0 lbs 2016-04-02 Heart Rate 68 bpm 2016-04-02 Respiratory Rate 18 2016-04-02 BMI 31.10 kg/m2 2016-04-02 Blood pressure systolic 108 mmHg 2016-04-02 Blood pressure diastolic 80 mmHg 2016-04-02 MEDICATIONS Medication Instructions Dosage Frequency Start Date End Date Duration Status Tylenol 325 MG Orally every 6 hrs by Oral route q6hr prn pain 6h Jun, Active Flexeril 10 MG Orally Three times a day 1 tablet 8h Active Risperdal Consta 12.5 MG Intramuscular every 2 weeks 1 dose Jan, 30 days Active Zocor 10 mg 1 Tablet by Oral route 1 time per day Oct, Active Singulair 10 MG Orally Once a day 1 tablet in the evening 24h Active Robitussin DM 100-10 MG/5ML Orally every 4 hrs 10 ml as needed 4h Active immodium 1 tab Active Afrin Nasal [place] Active Motrin 800 MG Orally Three times a day 1 tablet 8h Active Synthroid 100 MCG Orally Once a day 1 tablet 24h Active Advil 200 MG Orally every 6 hrs 1 tablet as needed 6h Active Lotrisone 1-0.05 % 1 inch by Topical route 2 times per day May, Active Mucinex D 60-600 MG Orally Twice a day 1 tablet as needed 12h Active Ventolin HFA 90 MCG/ACT Inhalation every 4 hrs 2 puffs as needed 4h Active RESULTS No Results PROCEDURES Procedure Date Ordered Related Diagnosis Body Site Office Visit, Est Pt., Level 3 Apr 02, 2016 IMMUNIZATIONS No Known Immunizations
--- OUTSIDE RECORDS SUMMARY | 2018-02-10 20:32 | XMS REPORT ---
Author Author JEYSON TULIO [facility] Address [address] [place] [address] Care Team Providers Care It Infrastructure Architect Name Role Phone JEYSONTULIO Unavailable PROBLEMS Type Condition ICD9-CM Code UST85-UO Code Onset Dates Condition Status SNOMED Code Problem Anxiety F41.9 Active 01676973 Problem Intellectual disability F79 Active 74283003 Problem Intermittent explosive disorder F63.81 Active 73022609 ALLERGIES Substance Reaction Event Type Date Status Poison idalia and Poison [place] hives Non Drug Allergy Dec, Active Bees and Wasps anaphylaxis Non Drug Allergy Dec, Active ENCOUNTERS Encounter Location Date Diagnosis [facility] [address] [address] Oct, [facility] [address] [address] July, Intermittent explosive disorder F63.81 ; Intellectual disability F79 and Anxiety F41.9 [facility] [id number] [place] [address] 22774- 6409 Mar, Intermittent explosive disorder F63.81 ; Intellectual disability F79 and Anxiety F41.9 [facility] [id number] [place] [address] 19151- 9246 Dec, Intermittent explosive disorder F63.81 ; Intellectual disability F79 and Anxiety F41.9 [facility] [address] [address]- [address] Sep, [facility] [id number] [place] [address] 45464- 8605 Sep, Intermittent explosive disorder F63.81 ; Intellectual disability F79 and Anxiety F41.9 [facility] [id number] [place] [id number] May, Dental examination Z01.20 [facility] [id number] [place] [address] 79871- 4726 Mar, Intermittent explosive disorder F63.81 [facility] [id number] [place] [address] 39462- 6866 Jan, Intermittent explosive disorder F63.81 [facility] [id number] [place] [address] [id number] Dec, Dental examination Z01.20 [facility] [id number] [place] [address] 02840- 3956 15 Nov, 2015 [facility] [id number] [place] [address] 605268- 5533 Aug, Intermittent explosive disorder F63.81 [facility] [id number] [place] [address] 334331- 3246 May, Intermittent explosive disorder F63.81 [facility] [id number] [place] [address] [id number] Apr, Dental examination Z01.20 [facility] [id number] [place] [address] [id number] Feb, Dental examination Z01.20 [facility] [id number] [place] [address] 39208- 0816 Feb, Intermittent explosive disorder F63.81 [facility] [id number] [place] [address] 687171- 3236 11 Nov, 2014 Mood disorder 296.90 and Intermittent explosive disorder 312.34 [facility] [id number] [place] [address] [id number] Aug, Dental examination V72.2 [facility] [id number] [place] [address] 19301- 3550 14 Jun, 2014 [facility] [id number] [place] [address] 63685- 1256 Jun, [facility] [place] [facility] [address] [id number] [place] [address] May, [facility] [place] [facility] [address] [id number] [place] [address]- 7875 May, [facility] [place] [facility] [address] [id number] [place] [address] Feb, [facility] [place] [facility] [address] [id number] [place] [address] Feb, [facility] [place] [facility] [address] [id number] [place] [address]- 8825 Dec, [facility] [place] [facility] [address] [id number] [place] [address]- 9861 Dec, [facility] [place] [facility] [address] [id number] [place] [address]- 3049 Nov, [facility] [place] [facility] [address] [id number] [place] [address]- 3359 Nov, [facility] [place] [facility] [address] [id number] [place] [address]- 8476 Sep, [facility] [place] [facility] [address] [id number] [place] [address]- 6765 Sep, [facility] [place] [facility] [address] [id number] [place] [address]- 6599 14 Apr, 2013 [facility] [place] [facility] [address] [id number] [place] [address]- 2775 Apr, [facility] [place] [facility] [address] [id number] [place] [address]- 6128 Jan, [facility] [place] [facility] [address] [id number] [place] [address]- 4280 Jan, [facility] [place] [facility] [address] [id number] [place] [address]- 3480 Oct, [facility] [place] [facility] [address] [address]- 5[address] Sep, [facility] [address] [address]- 45[address] Jun, [facility] [address] [address]- 0791 Feb, [facility] [address] 64[address] Feb, [facility] [address] [address]- 3031 Dec, [facility] [id number] [place] [address] 909288- 3643 Dec, [facility] [id number] [place] [address] 40433- 7562 Dec, [facility] [id number] [place] [address] 67661- 2888 Dec, [facility] [address], [place] [address]- 3664 Oct, [facility] [address] [address]- 3097 Sep, [facility] [address], [place] [address]- 4610 Jun, [facility] [address] [address]- 0[address] Jan, IMMUNIZATIONS No Known Immunizations SOCIAL HISTORY Never Assessed REASON FOR VISIT f/u--Delfino Ferguson MA PLAN OF CARE Activity Details Follow Up 3 Months Reason: f/u VITAL SIGNS Height 71 in 2016-12-14 Weight 210.9 lbs 2016-12-14 Heart Rate 74 bpm 2016-12-14 Respiratory Rate 20 2016-12-14 BMI 29.41 kg/m2 2016-12-14 Blood pressure systolic 118 mmHg 2016-12-14 Blood pressure diastolic 78 mmHg 2016-12-14 MEDICATIONS Medication Instructions Dosage Frequency Start Date End Date Duration Status Zocor 10 mg 1 Tablet by Oral route 1 time per day Oct, Active Singulair 10 MG Orally Once a day 1 tablet in the evening 24h Active Synthroid 100 MCG Orally Once a day 1 tablet 24h Active Tylenol 325 MG Orally every 6 hrs by Oral route q6hr prn pain 6h Jun, Active Advil 200 MG Orally every 6 hrs 1 tablet as needed 6h Active Ventolin HFA 90 MCG/ACT Inhalation every 4 hrs 2 puffs as needed 4h Active Mucinex D 60-600 MG Orally Twice a day 1 tablet as needed 12h Active Motrin 800 MG Orally Three times a day 1 tablet 8h Active Zoloft 50 mg Orally Once a day 1 tablet 24h 30 days Active Flexeril 10 MG Orally Three times a day 1 tablet 8h Active HydrOXYzine HCl 50 mg Orally Once a day as needed for anxiety/anger 1-2 tablets 30 days Active Lotrisone 1-0.05 % 1 inch by Topical route 2 times per day May, Active Visine Tears Active immodium 1 tab Active Robitussin DM 100-10 MG/5ML Orally every 4 hrs 10 ml as needed 4h Active RESULTS No Results PROCEDURES No Known procedures INSTRUCTIONS MEDICATIONS ADMINISTERED No Known Medications MEDICAL (GENERAL) HISTORY Type Description Date Medical History Thyroid Problems Medical History HLP Medical History Back Trouble Medical History Denies any hx of heart problem or seizure Surgical History Left Knee surgery 2014 Hospitalization History Surgery 2015 Hospitalization History [facility] several times
--- OUTSIDE RECORDS SUMMARY | 2018-02-10 20:32 | XMS REPORT ---
Author Author TULIO BENÍTEZ [facility] Address [address] [place] [address] Care Team Providers Care R D Engineer Name Role Phone JEYSONTULIO Unavailable PROBLEMS Type Condition ICD9-CM Code WEY34-FO Code Onset Dates Condition Status SNOMED Code Problem Anxiety F41.9 Active 23133938 Problem Intellectual disability F79 Active 82606537 Problem Intermittent explosive disorder F63.81 Active 00427420 ALLERGIES Substance Reaction Event Type Date Status Poison idalia and Poison Lynndyl hives Non Drug Allergy Mar, Active Bees and Wasps anaphylaxis Non Drug Allergy Mar, Active ENCOUNTERS Encounter Location Date Diagnosis [facility] [address] [address] Oct, [facility] [address] [address]- [address] July, Intermittent explosive disorder F63.81 ; Intellectual disability F79 and Anxiety F41.9 [facility] [id number] [place] [address]644- 0738 Mar, Intermittent explosive disorder F63.81 ; Intellectual disability F79 and Anxiety F41.9 [facility] [id number] [place] [address] 17754- 2558 Dec, Intermittent explosive disorder F63.81 ; Intellectual disability F79 and Anxiety F41.9 [facility] [address] [address]- 0092 Sep, [facility] [id number] [place] [address] 92269- 5446 Sep, Intermittent explosive disorder F63.81 ; Intellectual disability F79 and Anxiety F41.9 [facility] [id number] [place] [id number] May, Dental examination Z01.20 [facility] [id number] [place] [address] 96164- 9026 Mar, Intermittent explosive disorder F63.81 [facility] [id number] [place] [address] 81825- 7776 Jan, Intermittent explosive disorder F63.81 [facility] [id number] [place] [address] [id number] Dec, Dental examination Z01.20 [facility] [id number] [place] [address] 70386- 5506 15 Nov, 2015 [facility] [id number] [place] [address] 637042- 0843 Aug, Intermittent explosive disorder F63.81 [facility] [id number] [place] [address] 674379- 8236 May, Intermittent explosive disorder F63.81 [facility] [id number] [place] [address] [id number] Apr, Dental examination Z01.20 [facility] [id number] [place] [address] [id number] Feb, Dental examination Z01.20 [facility] [id number] [place] [address] 29429- 8096 Feb, Intermittent explosive disorder F63.81 [facility] [id number] [place] [address] 588676- 1616 11 Nov, 2014 Mood disorder 296.90 and Intermittent explosive disorder 312.34 [facility] [id number] [place] [address] [id number] Aug, Dental examination V72.2 [facility] [id number] [place] [address] 79379- 3941 14 Jun, 2014 [facility] [id number] [place] [address] 74729- 5676 Jun, [facility] [place] [facility] [address] [id number] [place] [address] May, [facility] [place] [facility] [address] [id number] [place] [address]- 6690 May, [facility] [place] [facility] [address] [id number] [place] 4[address] Feb, [facility] [place] [facility] [address] [id number] [place] 5986 Feb, [facility] [place] [facility] [address] [id number] [place] [address]- 3152 Dec, [facility] [place] [facility] [address] [id number] [place] [address]- 2073 Dec, [facility] [place] [facility] [address] [id number] [place] [address]- 1932 Nov, [facility] [place] [facility] [address] [id number] [place] [address]- 9287 Nov, [facility] [place] [facility] [address] [id number] [place] [address]- 4653 Sep, [facility] [place] [facility] [address] [id number] [place] [address]- 8211 Sep, [facility] [place] [facility] [address] [id number] [place] [address]- 1293 14 Apr, 2013 [facility] [place] [facility] [address] [id number] [place] [address]- 4368 Apr, [facility] [place] [facility] [address] [id number] [place] [address]- 4843 Jan, [facility] [place] [facility] [address] [id number] [place] [address]- 5299 Jan, [facility] [place] [facility] [address] [id number] [place] [address]- 2038 Oct, [facility] [place] [facility] [address] [address]- 8386 Sep, [facility] [address] [address]- 2860 Jun, [facility] [address] [address]- 7114 Feb, [facility] [address] [address]- 5332 Feb, [facility] [id number] [address]- 1301 Dec, [facility] [id number] [place] [address] 909700- 8588 Dec, [facility] [address] [place] [address] 44836- 2893 Dec, [facility] [id number] [place] [address] 51514- 0716 Dec, [facility] [address] [address]- 6265 Oct, [facility] [id number] [address]- 7426 Sep, [facility] [address] [address]- 1207 Jun, [facility] [address] [address]- 5548 Jan, IMMUNIZATIONS No Known Immunizations SOCIAL HISTORY Never Assessed REASON FOR VISIT ANABEL f/u----Lizz PLAN OF CARE Activity Details Follow Up 3 Months Reason: f/u VITAL SIGNS Height 71 in 2017-03-08 Weight 207 lbs 2017-03-08 Heart Rate 90 bpm 2017-03-08 Respiratory Rate 20 2017-03-08 BMI 28.87 kg/m2 2017-03-08 Blood pressure systolic 124 mmHg 2017-03-08 Blood pressure diastolic 64 mmHg 2017-03-08 MEDICATIONS Medication Instructions Dosage Frequency Start Date End Date Duration Status immodium 1 tab Active Visine Tears Active Mucinex D 60-600 MG Orally Twice a day 1 tablet as needed 12h Active Ventolin HFA 90 MCG/ACT Inhalation every 4 hrs 2 puffs as needed 4h Active Zoloft 50 mg Orally Once a day 1 tablet 24h Active Singulair 10 MG Orally Once a day 1 tablet in the evening 24h Active Synthroid 100 MCG Orally Once a day 1 tablet 24h Active HydrOXYzine HCl 50 mg Orally Once a day as needed for anxiety/anger 1-2 tablets Active Tylenol 325 MG Orally every 6 hrs by Oral route q6hr prn pain 6h Jun, Active Zocor 10 mg 1 Tablet by Oral route 1 time per day Oct, Active Lotrisone 1-0.05 % 1 inch by Topical route 2 times per day May, Active Robitussin DM 100-10 MG/5ML Orally every 4 hrs 10 ml as needed 4h Active Afrin Nasal [place] Not-Taking Flexeril 10 MG Orally Three times a [...] 2015 Hospitalization History Surgery [address] [facility] several times
--- OUTSIDE RECORDS SUMMARY | 2018-02-10 20:32 | XMS REPORT ---
Author Author TULIO BENÍTEZ [facility] Address [address] [place] [address] Care Team Providers Care Dry Charge Process Attendant Name Role Phone TULIO BENÍTEZ Unavailable PROBLEMS Type Condition ICD9-CM Code XRL11-ZX Code Onset Dates Condition Status SNOMED Code Problem Anxiety F41.9 Active 59603277 Problem Intellectual disability F79 Active 82238485 Problem Intermittent explosive disorder F63.81 Active 32136174 ALLERGIES No Information ENCOUNTERS Encounter Location Date Diagnosis [facility] [id number] [place] [address] 29785- 9837 Jun, [facility] [address] [address]- 4339 Mar, Intermittent explosive disorder F63.81 ; Intellectual disability F79 and Anxiety F41.9 [facility] [address] 04162- 3245 Dec, Intermittent explosive disorder F63.81 ; Intellectual disability F79 and Anxiety F41.9 [facility] [id number] [place] [address] 55405- 6768 Sep, [facility] [address] 12706- 3343 Sep, Intermittent explosive disorder F63.81 ; Intellectual disability F79 and Anxiety F41.9 [facility] [address] [id number] May, Dental examination Z01.20 [facility] [id number] [place] [address] 03395- 6117 Mar, Intermittent explosive disorder F63.81 [facility] [address] [address] 2546 Jan, Intermittent explosive disorder F63.81 [facility] [id number] [id number] Dec, Dental examination Z01.20 [facility] [address], [place] [address]- 2546 15 Nov, 2015 [facility] [address] [place] [address] 18382- 5776 Aug, Intermittent explosive disorder F63.81 [facility] [address] [place] [address] 99047 2546 May, Intermittent explosive disorder F63.81 [facility] [address] [place] [address] [id number] Apr, Dental examination Z01.20 [facility] [address] [place] [address] [id number] Feb, Dental examination Z01.20 [facility] [address] [place] [address] 40463- 7606 Feb, Intermittent explosive disorder F63.81 [facility] [address] [place] [address] 39763- 7216 Nov, Mood disorder 296.90 and Intermittent explosive disorder 312.34 [facility] [id number] [place] [address] [id number] Aug, Dental examination V72.2 [facility] [address] [place] [address] 14344- 6522 14 Jun, 2014 [facility] [address] [address]- 5226 Jun, [facility] [address] [place] [address] 08913- 3536 04 May, 2014 [facility] [address], [place] [address]- 8546 May, [facility] [id number] [place] [address]- 6269 05 Feb, 2014 [facility] [address] [id number] [place] [address]- 5224 Feb, [facility] [place] [facility] [address] [id number] [place] [address]- 0637 Dec, [facility] [address] [id number] [place] [address]- 4619 Dec, [facility] [place] [facility] [address] [id number] [place] [address]- 7204 Nov, [facility] [address] [id number] [place] [address]- 2722 Nov, [facility] [address] [id number] [place] [address]- 6502 Sep, [facility] [place] [facility] [address] [id number] [place] [address]- 5721 Sep, [facility] [address] [id number] [place] [address]- 0917 Apr, [facility] [place] [facility] [address] [id number] [place] [address]- 5451 Apr, [facility] [address] [id number] [place] [address]- 6783 Jan, [facility] [place] [facility] [address] [id number] [place] [address]- 3670 Jan, [facility] [place] [facility] [address] [id number] [place] [address]- 9960 Oct, [facility] [place] [facility] [address] [id number] [place] [address]- 7316 Sep, [facility] [place] [facility] [address] [id number] [place] [address]- 2546 Jun, [facility] [place] [facility] [address] [id number] [place] [address]- 3303 Feb, [facility] [id number] 8350 Feb, [facility] [address], [place] [address]- 5808 Dec, [facility] [address], [place] [address]- 8319 Dec, [facility] [address], [place] [address]- 8871 Dec, [facility] [address] 4112 Dec, [facility] [address] [place] [address] 48012- 4408 Oct, [facility] [address], [place] [address]- 2043 Sep, [facility] [address], [place] [address]- 1611 Jun, [facility] [id number] [address]- 5822 Jan, IMMUNIZATIONS No Known Immunizations SOCIAL HISTORY Never Assessed REASON FOR VISIT behaviors PLAN OF CARE VITAL SIGNS MEDICATIONS Unknown Medications RESULTS No Results PROCEDURES No Known procedures INSTRUCTIONS MEDICATIONS ADMINISTERED No Known Medications MEDICAL (GENERAL) HISTORY Type Description Date Medical History Thyroid Problems Medical History HLP Medical History Back Trouble Medical History Denies any hx of heart problem or seizure Surgical History Left Knee surgery 2015 Hospitalization History Surgery 2015 Hospitalization History [facility] several times
--- OUTSIDE RECORDS SUMMARY | 2018-02-10 20:32 | XMS REPORT ---
Author Author SUE FRIED eClinical[employer] Address Unknown Phone Unavailable Care Team Providers Care Psychiatric Social Worker Name Role Phone SUE FRIED CP Unavailable Allergies, Adverse Reactions, Alerts Substance Reaction Event Type Bees and Wasps anaphylaxis Non Drug Allergy Poison idalia and Poison [place] hives Non Drug Allergy Problems Problem Type Condition Code Onset Dates Condition Status Assessment Dental examination Z01.20 Active Medications Medication Code System Code Instructions Start Date End Date Status Dosage Lotrisone [facility] [address]-13 1-0.05 % May 05, 2014 1 inch by Topical route 2 times per day Tylenol [facility] [address]-59 325 MG Orally every 6 hrs June 02, 2012 by Oral route q6hr prn pain Motrin [facility] [address]-12 800 MG Orally Three times a day 1 tablet Flexeril [facility] [address]-61 10 MG Orally Three times a day 1 tablet Singulair [facility] [address]-80 10 MG Orally Once a day 1 tablet in the evening Synthroid [facility] [address]-92 100 MCG Orally Once a day 1 tablet Afrin Nasal [place] [facility] [address]-68 not defined Zocor [facility] [address]-50 10 mg Oct 29, 2011 1 Tablet by Oral route 1 time per day Risperdal Consta [facility] [address]-58 12.5 MG Intramuscular every 14 days August 15, 2015 as directed Naproxen [facility] [address]-35 500 MG Orally Twice a day 1 tablet Procedures Procedure Coding System Code Date Billing Notes on claim CPT-4 EC109 Dec 08, 2015 [facility] SURFACE PRIMARY/PERM CPT-4 D2140 Dec 08, 2015 Vital Signs Date/Time: Dec 08, 2015 Blood Pressure Diastolic 76 mmHg Blood Pressure Systolic 115 mmHg Results No Known Results Summary Purpose eClinicalWorks Submission
--- OUTSIDE RECORDS SUMMARY | 2018-02-10 20:32 | XMS REPORT ---
Author Author TULIO BENÍTEZ Organization [facility] Address [address] [place] [address] Care Team Providers Care Director Call Center Sales Name Role Phone JEYSONTULIO Unavailable PROBLEMS Type Condition ICD9-CM Code [id number] Code Onset Dates Condition Status SNOMED Code Problem Anxiety F41.9 Active 04742224 Problem Intellectual disability F79 Active 52046691 Problem Intermittent explosive disorder F63.81 Active 29316777 ALLERGIES Substance Reaction Event Type Date Status Poison idalia and Poison [place] hives Non Drug Allergy Sep, Active Bees and Wasps anaphylaxis Non Drug Allergy Sep, Active ENCOUNTERS Encounter Location Date Diagnosis [facility] [id number] [place] [address] Jun, [facility] [address] [address] Mar, Intermittent explosive disorder F63.81 ; Intellectual disability F79 and Anxiety F41.9 [facility] [id number] [place] [address] Dec, Intermittent explosive disorder F63.81 ; Intellectual disability F79 and Anxiety F41.9 [facility] [id number] [place] [address] Sep, [facility] [id number] [place] [address] Sep, Intermittent explosive disorder F63.81 ; Intellectual disability F79 and Anxiety F41.9 [facility] [id number] [place] [phone] May, Dental examination Z01.20 [facility] [id number] [place] [address] Mar, Intermittent explosive disorder F63.81 [facility] [address] [place] [address] Jan, Intermittent explosive disorder F63.81 [facility] [address] [id number] Dec, Dental examination Z01.20 [facility] [address] [address] 15 Nov, 2015 [facility] [address] [place] [address] 0212[address]- [address] Aug, Intermittent explosive disorder F63.81 [facility] [address] [place] [address] May, Intermittent explosive disorder F63.81 [facility] [address] [place] [id number] Apr, Dental examination Z01.20 [facility] [address] [place] [phone] Feb, Dental examination Z01.20 [facility] [id number] [place] [address] Feb, Intermittent explosive disorder F63.81 [facility] [address] [place] [address] Nov, Mood disorder 296.90 and Intermittent explosive disorder 312.34 [facility] [address] [place] [address] [id number] Aug, Dental examination V72.2 [facility] [address] [place] [address]- [address] 14 Jun, 2014 [facility] [address] [place] [address] 308489- [address] Jun, [facility] [address] [address] May, [facility] [id number] [place] [address] May, [facility] [place] [facility] [address] [id number] [place] [address] Feb, [facility] [place] [facility] [address] [id number] [place] [address] Feb, [facility] [place] [facility] [address] [id number] [place] [address] Dec, [facility] [place] [facility] [address] [id number] [place] [address] Dec, [facility] [place] [facility] [address] [id number] [place] [address] Nov, [facility] [place] [facility] [address] [id number] [place] [address] Nov, [facility] [place] [facility] [address] [id number] [place] [address] Sep, [facility] [place] [facility] [address] [id number] [place] [address] Sep, [facility] [place] [facility] [address] [id number] [place] [address] Apr, [facility] [place] [facility] [address] [id number] [place] [address] Apr, [facility] [place] [facility] [address] [id number] [place] [address] Jan, [facility] [place] [facility] [address] [id number] [place] [address] Jan, [facility] [place] [facility] [address] [id number] [place] [address] Oct, [facility] [place] [facility] [address] [id number] [place] [address] Sep, [facility] [place] [facility] [address] [id number] [place] [address] Jun, [facility] [address] [address] Feb, [facility] [address] [place] [address] Feb, [facility] [address] [place] [address] Dec, [facility] [address] [place] [address] Dec, [facility] [address] [place] [address] Dec, [facility] [address] [place] [address] Dec, [facility] [id number] [address] Oct, [facility] [address] [place] [address] Sep, [facility] [address] [address] Jun, [facility] [address] [place] [address] Jan, IMMUNIZATIONS No Known Immunizations SOCIAL HISTORY Never Assessed REASON FOR VISIT intake PLAN OF CARE Activity Details Follow Up 3 Months Reason: f/u VITAL SIGNS Height 71 in 2016-09-13 Weight 219.8 lbs 2016-09-13 Heart Rate 72 bpm 2016-09-13 Respiratory Rate 18 2016-09-13 BMI 30.65 kg/m2 2016-09-13 Blood pressure systolic 116 mmHg 2016-09-13 Blood pressure diastolic 74 mmHg 2016-09-13 MEDICATIONS Medication Instructions Dosage Frequency Start Date End Date Duration Status Zoloft 50 mg Orally Once a day 1 tablet 24h 30 days Active Motrin 800 MG Orally Three times a day 1 tablet 8h Active Lotrisone 1-0.05 % 1 inch by Topical route 2 times per day May, Active Tylenol 325 MG Orally every 6 hrs by Oral route q6hr prn pain 6h Jun, Active Zocor 10 mg 1 Tablet by Oral route 1 time per day Oct, Active Singulair 10 MG Orally Once a day 1 tablet in the evening 24h Active immodium 1 tab Active Visine Tears Active Mucinex D 60-600 MG Orally Twice a day 1 tablet as needed 12h Active Flexeril 10 MG Orally Three times a day 1 tablet 8h Active Robitussin DM 100-10 MG/5ML Orally every 4 hrs 10 ml as needed 4h Active Synthroid 100 MCG Orally Once a day 1 tablet 24h Active HydrOXYzine HCl 50 mg Orally Once a day as needed for anxiety/anger 1-2 tablets Sep, 30 days Active Advil 200 MG Orally every 6 [...] 2014 Hospitalization History Surgery 2015 Hospitalization History [facility] several times
--- OUTSIDE RECORDS SUMMARY | 2018-02-10 20:33 | XMS REPORT ---
Author Author BRANDON WILSON [facility] eClinicalWorks Address Unknown Phone Unavailable Care Team Providers Care Pharmacy Stock Clerk Name Role Phone BRANDON WILSON CP Unavailable Allergies, Adverse Reactions, Alerts Substance Reaction Event Type Poison idalia and Poison [place] hives Non Drug Allergy Bees and Wasps anaphylaxis Non Drug Allergy Problems Problem Type Condition Code Onset Dates Condition Status Assessment Dental examination Z01.20 Active Medications Medication Code System Code Instructions Start Date End Date Status Dosage Zocor [facility] [address]-29 10 mg Oct 29, 2011 1 Tablet by Oral route 1 time per day Lotrisone [facility] [address]-38 1-0.05 % May 05, 2014 1 inch by Topical route 2 times per day Synthroid [facility] [address]-46 100 MCG Orally Once a day 1 tablet Singulair [facility] [address]-52 10 MG Orally Once a day 1 tablet in the evening Tylenol [facility] [address]-55 325 MG Orally every 6 hrs June 02, 2012 by Oral route q6hr prn pain Risperdal Consta [facility] [address]-15 12.5 MG Intramuscular 1 injection every 2 weeks Feb 04, 2015 as directed Naproxen [facility] [address]-65 500 MG Orally Twice a day 1 tablet Flexeril [facility] 0 not defined Risperdal Consta [facility] [address]-65 12.5 MG Intramuscular 1 dose every other week Nov 12, 2014 as directed Procedures Procedure Coding System Code Date RESIN COMPOS - 3 SURFACES ANTERIOR CPT-4 D2332 Dec 15, 2014 Vital Signs Date/Time: Feb 16, 2015 Blood Pressure Diastolic 83 mmHg Blood Pressure Systolic 114 mmHg Height 71 in Results No Known Results Summary Purpose eClinicalWorks Submission
--- OUTSIDE RECORDS SUMMARY | 2018-02-10 20:33 | XMS REPORT ---
Author Author KERRIE HAQUE [facility] eClinicalWorks Address Unknown Phone Unavailable Care Team Providers Care Cotton Broker Name Role Phone KERRIE HAQUE CP Unavailable Allergies, Adverse Reactions, Alerts Substance Reaction Event Type Poison idalia and Poison [place] hives Non Drug Allergy Bees and Wasps anaphylaxis Non Drug Allergy Problems Problem Type Condition Code Onset Dates Condition Status Assessment Intermittent explosive disorder F63.81 Active Medications Medication Code System Code Instructions Start Date End Date Status Dosage Tylenol [facility] [address]-27 325 MG Orally every 6 hrs June 02, 2012 by Oral route q6hr prn pain Risperdal Consta [facility] [address]-70 12.5 MG Intramuscular 1 injection every 2 weeks Feb 04, 2015 as directed Flexeril [facility] 0 not defined Lotrisone [facility] [address]-92 1-0.05 % May 05, 2014 1 inch by Topical route 2 times per day Zocor [facility] [address]-47 10 mg Oct 29, 2011 1 Tablet by Oral route 1 time per day Synthroid [facility] [address]-64 100 MCG Orally Once a day 1 tablet Naproxen [facility] [address]-15 500 MG Orally Twice a day 1 tablet Singulair [facility] [address]-53 10 MG Orally Once a day 1 tablet in the evening Risperdal Consta [facility] [address]-08 12.5 MG Intramuscular 1 dose every other week Nov 12, 2014 as directed Procedures Procedure Coding System Code Date Office Visit, Est Pt., Level 3 CPT-4 26328 Feb 04, 2015 Vital Signs Date/Time: Feb 04, 2015 Cardiac Monitoring Heart Rate 60 bpm Weight 210.5 lbs Height 71 in BMI 29.36 Index Blood Pressure Diastolic 72 mmHg Blood Pressure Systolic 102 mmHg Results No Known Results Summary Purpose eClinicalWorks Submission
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
[2018-02-10 21:05] VITALS: BP 110/71
[2018-02-10] MEDS ORDERED: fentaNYL INJECTION 100 MCG/2 ML AMP IV PRN (21:15)
[2018-02-10] MEDS ORDERED: IBUPROFEN 800 MG (MOTRIN) TAB PO PRN (21:15)
[2018-02-10] MEDS ORDERED: CATHETER FLUSH 10 ML SYR IV PRN (21:30)
[2018-02-10] MEDS ORDERED: VANCOMYCIN 1500 MG/NS 500 ML IVPB IV ONE ×2 (21:30)
[2018-02-10] MEDS: VANCOMYCIN 1 GM/NS 250 ML IVPB IV SCH ×4 (21:40→21:43)
[2018-02-10] MEDS: NS IV 1000 ML 1,000 ML IV SCH (21:40)
[2018-02-10] MEDS: CATHETER FLUSH 10 ML SYR IV SCH (23:03)
[2018-02-10] MEDS ORDERED: VANCOMYCIN 500 MG/NS 100 ML IV ONE ×2 (23:15)
[2018-02-11 00:07] VITALS: BP 106/62
[2018-02-11] MEDS: ACETAMINOPHEN 500 MG TAB (TYLENOL) PO PRN ×2 (03:40→19:51)
[2018-02-11 04:06] VITALS: BP 125/84
[2018-02-11 05:45] LABS: BASOPHILS % (AUTO) 0 % (0-10); EOSINOPHILS # (AUTO) 0.1 10^3/uL (0.0-0.3); EOSINOPHILS % (AUTO) 1 % (0-10); HEMATOCRIT 40 % (40-54); HEMOGLOBIN 13.6 G/DL (13.3-17.7); LYMPHOCYTES # (AUTO) 1.4 X 10^3 (1.0-4.0); LYMPHOCYTES % (AUTO) 12 % (12-44); MEAN CORPUSCULAR HEMOGLOBIN 31 PG (25-34); MEAN CORPUSCULAR HGB CONC 34 G/DL (32-36); MEAN CORPUSCULAR VOLUME 91 FL (80-99); MEAN PLATELET VOLUME 9.8 FL (7.4-10.4); MONOCYTES # (AUTO) 1.1 X 10^3 (0.0-1.0); MONOCYTES % (AUTO) 9 % (0-12); NEUTROPHILS # (AUTO) 9.1 X 10^3 (1.8-7.8); NEUTROPHILS % (AUTO) 78 % (42-75); PLATELET COUNT 186 10^3/uL (130-400); RED BLOOD COUNT 4.42 10^6/uL (4.35-5.85); RED CELL DISTRIBUTION WIDTH 13.1 % (10.0-14.5); WHITE BLOOD COUNT 11.7 10^3/uL (4.3-11.0)
[2018-02-11 06:25] LABS: ALANINE AMINOTRANSFERASE 37 U/L (0-55); ALBUMIN 3.6 GM/DL (3.2-4.5); ALKALINE PHOSPHATASE 83 U/L (40-136); BILIRUBIN,TOTAL 0.5 MG/DL (0.1-1.0); BUN/CREATININE RATIO 15; CALCIUM 8.7 MG/DL (8.5-10.1); CARBON DIOXIDE 18 MMOL/L (21-32); CHLORIDE 109 MMOL/L (98-107); CREATININE SERUM 0.85 MG/DL (0.60-1.30); GFR ESTIMATED > 60; GLUCOSE 108 MG/DL (70-105); POTASSIUM 4.1 MMOL/L (3.6-5.0); SODIUM 137 MMOL/L (135-145); TOTAL PROTEIN 6.1 GM/DL (6.4-8.2)
[2018-02-11] MEDS: CATHETER FLUSH 10 ML SYR IV SCH ×3 (06:43→21:08)
[2018-02-11] MEDS ORDERED: FLU QUADRIvalent (5+ YOA) 2018-2019 (AFLURIA) 0.5 ML IM ONE (07:30)
[2018-02-11] MEDS: NS IV 1000 ML 1,000 ML IV SCH ×3 (07:35→17:53)
[2018-02-11 08:00] VITALS: BP 107/65
[2018-02-11] MEDS: VANCOMYCIN INJECTION 1,500 MG in NS IV 500 ML 500 ML IV SCH ×2 (08:31→20:37)
[2018-02-11] MEDS ORDERED: VANCOMYCIN 1 GM/NS 250 ML IVPB IV SCH ×2 (09:30)
[2018-02-11] MEDS ORDERED: LOPE-134 PO (11:07)
[2018-02-11] MEDS ORDERED: CYCL10TA9 PO (11:07)
[2018-02-11] MEDS ORDERED: CLOT15CR4 TP (11:07)
[2018-02-11] MEDS ORDERED: ACET325T38 PO ×2 (11:07)
[2018-02-11] MEDS ORDERED: HYDR28.3 TP (11:07)
[2018-02-11] MEDS ORDERED: CODE118S4 PO (11:07)
[2018-02-11] MEDS ORDERED: CALC300T4 PO (11:07)
[2018-02-11] MEDS ORDERED: DIPH25CA79 PO (11:07)
[2018-02-11] MEDS ORDERED: MAGN400O7 PO (11:07)
[2018-02-11] MEDS ORDERED: HYDR50TA76 PO (11:07)
[2018-02-11] MEDS ORDERED: SERT100T8 PO (11:07)
[2018-02-11] MEDS ORDERED: TETR15DR74 OU (11:07)
[2018-02-11] MEDS ORDERED: EUCA1LOZ28 MM (11:07)
[2018-02-11] MEDS ORDERED: LEVO100T7 PO (11:07)
[2018-02-11] MEDS ORDERED: NPB.9O TP (11:07)
[2018-02-11] MEDS ORDERED: GUAI-370 PO (11:07)
[2018-02-11] MEDS ORDERED: RT-ALBUINH IH (11:07)
[2018-02-11] MEDS ORDERED: CALC-308 PO (11:07)
[2018-02-11] MEDS ORDERED: GUAI5SYR PO (11:07)
[2018-02-11] MEDS ORDERED: RISP12.5 IM (11:31)
[2018-02-11] MEDS ORDERED: NAPR-915 PO (11:32)
--- NOTE | 2018-02-11 11:50 | History & Physical-Hospitalist ---
History of Present Illness HPI/Chief Complaint The patient is a 42-year-old white male who presented to the emergency room yesterday. He reported that he had begun to have redness and swelling of his left lower leg which was continuing to get worse. The time frame was said to be 24 hours. He denies any previous incidence of infection or vein problems. He is intellectually challenged but high performing. 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 Date Seen 02/11/18 Time Seen by a Provider: 11:48 Attending Physician Masoud García MD PCP Amanda Carney MD Referring Physician Date of Admission Feb 10, 2018 at 19:37 Home Medications & Allergies Home Medications Reviewed patient Home Medication Reconciliation performed by pharmacy medication reconciliations computed tomography technician and/or nursing. Patients Allergies have been reviewed. Allergies Allergies Uncoded Allergies BEE AND WASPS ( Allergy, Unknown, 11/04/14) POISON YASMINE AND OAK ( Allergy, Unknown, 11/04/14) Past Aqrpovq-Gupwxj-Cnnifx Hx Past Med/Social Hx: Reviewed Nursing Past Med/Soc Hx Patient Social History Marrital Status: single Alcohol Use: Occasionally Uses Recreational Drug Use: Yes (SMOKES 1 PPD) Smoking Status: Current Someday Smoker Type Used: Cigarettes 2nd Hand Smoke Exposure: Yes Physical Abuse Screen: No Sexual Abuse: No Recent Foreign Travel: No Contact w/other who traveled: No Recent Hopitalizations: No Recent Infectious Disease Expo: No Immunizations Up To Date Tetanus Booster (TDap): Less than 5yrs Seasonal Allergies Seasonal Allergies: No Past Medical History Surgeries: Orthopedic Endocrine: Hypothyroidsim Loss of Vision: Bilateral Psychosocial: Anxiety, Personality Disorder History of Blood Disorders: No Review of Systems Constitutional: see HPI EENTM: no symptoms reported Respiratory: no symptoms reported Cardiovascular: no symptoms reported Gastrointestinal: no symptoms reported Genitourinary: no symptoms reported Musculoskeletal: see HPI Skin: no symptoms reported Psychiatric/Neurological: No Symptoms Reported Physical Exam Physical Exam Vital Signs Vital Signs - First Documented 02/10/18 19:23 Temp 101.5 Pulse 107 Resp 18 B/P (MAP) 120/87 (98) Pulse Ox 96 O2 Delivery Room Air Capillary Refill : Less Than 3 Seconds Height, Weight, BMI Height: 5'10.00" Weight: 238lbs. 0.0oz. 107.411438vq; 34.2 BMI Method:Stated General Appearance: No Apparent Distress, WD/WN Eyes: Bilateral Eye Normal Inspection HEENT: Normal ENT Inspection Neck: Full Range of Motion, Normal Inspection, Non Tender, Supple, Carotid Bruit Respiratory: Chest Non Tender, Lungs Clear, Normal Breath Sounds, No Accessory Muscle Use, No Respiratory Distress Cardiovascular: Regular Rate, Rhythm, No Edema, No Gallop, No JVD, No Murmur, Normal Peripheral Pulses Gastrointestinal: Normal Bowel Sounds, No Organomegaly, No Pulsatile Mass, Non Tender, Soft Back: Normal Inspection, No CVA Tenderness, No Vertebral Tenderness Neurologic/Psychiatric: Alert, Oriented x3, No Motor/Sensory Deficits, Normal Mood/Affect Comments The left lower extremity is grossly swollen from the malleoli to the knee. It is warm to touch. It is quite firm to palpation. It is quite red and the skin has a bumpy texture. No open wound is noted. Results Results/Procedures Labs Laboratory Tests 02/10/18 19:33 02/11/18 05:20 Patient resulted labs reviewed. Assessment/Plan Admission Diagnosis Cellulitis left lower extremity. Admission Status: Inpatient Order (span 2 midnights) Reason for Inpatient Admission: Progressive and inflammatory changes left lower extremity not likely to be treatable by oral antibiotics. Assessment and Plan Venous ultrasound left lower extremity to rule out phlebitis. Continue elevation and IV antibiotics. Clinical Quality Measures DVT/VTE Risk/Contraindication: Risk Factor Score Per Nursin RFS Level Per Nursing on Admit: 2=Moderate MASOUD GARCÍA MD Feb 11, 2018 11:50
[2018-02-11] MEDS ORDERED: MICO45CR11 TOP (11:53)
[2018-02-11] MEDS ORDERED: SIMV10TA3 PO (11:53)
[2018-02-11 12:00] VITALS: BP 118/75
[2018-02-11] MEDS ORDERED: ENOXAPARIN 100 MG/1 ML (LOVENOX) SYR SC NR (12:00)
[2018-02-11 16:00] VITALS: BP 133/81
--- NOTE | 2018-02-11 17:32 | Diagnostic Imaging Report ---
PROCEDURE: US left lower extremity venous. TECHNIQUE: Multiple real-time grayscale images were obtained over the left lower extremity in various projections. Additional duplex Doppler and color Doppler images were also obtained. DATE: February 11, 2018. INDICATION: 42-year-old male, left lower extremity swelling. Cellulitis. COMPARISON: None. FINDINGS: There is a prominent left inguinal lymph node measuring 2.8 x 1.2 x 2.2 cm in size. Cortical thickness is measured at 4.6 mm which is beyond upper limits of normal. The left common femoral vein, superficial femoral vein, deep femoral vein appear patent. The left popliteal vein is patent. The left posterior tibial and peroneal veins are patent. There is no sonographically demonstrated fluid collection or mass on provided images. IMPRESSION: 1. No evidence of left lower extremity deep venous thrombosis. 2. Prominent left inguinal lymph node with abnormal cortical thickening. Recommend correlation for cause. 3. No sonographically demonstrated fluid collection or mass on provided images. Dictated by: Dictated on workstation # [id number]
[2018-02-11] MEDS: cefTRIAXone 1 GM/NS 50 ML IVPB IV SCH ×2 (19:17)
[2018-02-11 19:30] VITALS: BP 132/77
[2018-02-12 00:27] VITALS: BP 129/72
[2018-02-12] MEDS: ACETAMINOPHEN 500 MG TAB (TYLENOL) PO PRN (04:14)
[2018-02-12 04:43] VITALS: BP 118/73
[2018-02-12] MEDS: CATHETER FLUSH 10 ML SYR IV SCH ×3 (05:54→23:14)
[2018-02-12] MEDS: NS IV 1000 ML 1,000 ML IV SCH (06:29)
[2018-02-12 08:00] VITALS: BP 117/77
[2018-02-12] MEDS ORDERED: TROUGH ORDER-PHARMACY XX NR (08:00)
[2018-02-12] MEDS ORDERED: diphenhydrAMINE 25 MG TAB (BENADRYL) PO PRN ×2 (08:45)
[2018-02-12] MEDS ORDERED: ACETAMINOPHEN 325 MG TABLET PO PRN (08:45)
[2018-02-12] MEDS ORDERED: RT-ALBUTEROL SULF 2.5 MG/3 ML PRE-MIX VIAL IH PRN (08:45)
[2018-02-12] MEDS ORDERED: MILK OF MAGNESIA 400 MG/5 ML 30 ML UDC PO PRN (08:45)
[2018-02-12] MEDS ORDERED: CYCLOBENZAPRINE 10 MG (FLEXERIL) TAB PO PRN (08:45)
--- NOTE | 2018-02-12 09:33 | Progress Note-Hospitalist ---
NAOMY BELTRÁN DO 02/12/18 0933: Subjective HPI/CC On Admission The patient is a 42-year-old white male who presented to the emergency room yesterday. He reported that he had begun to have redness and swelling of his left lower leg which was continuing to get worse. The time frame was said to be 24 hours. He denies any previous incidence of infection or vein problems. He is intellectually challenged but high performing. 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 Subjective/Events-last exam Patient is doing much better Will remove SCD on left leg due to cellulitis Will place on Lovenox for DVT prophylaxis Patient appears to need a shower so shared that information with patients nurse Will helplock IV fluid Will discontinue telemetry Restarted all home meds Dr Carney is patients primary provider Review of Systems General: Fatigue Cardiovascular: Edema Focused Exam Lactate Level 02/10/18 19:33: Lactic Acid Level 0.94 Objective Exam Vital Signs Vital Signs Date Time Temp Pulse Resp B/P (MAP) Pulse Ox O2 Delivery O2 Flow Rate FiO2 02/12/18 19:37 95 Room Air 02/12/18 16:15 97.7 66 16 121/79 (93) Capillary Refill : Less Than 3 Seconds General Appearance: No Apparent Distress, WD/WN Respiratory: Chest Non Tender, Lungs Clear, Normal Breath Sounds, No Accessory Muscle Use, No Respiratory Distress Cardiovascular: Regular Rate, Rhythm, No Edema, No Gallop, No JVD, No Murmur, Normal Peripheral Pulses Extremity: Pedal Edema, Other (Left leg with edema and erythema but resolving) Neurologic/Psychiatric: Alert, Oriented x3, No Motor/Sensory Deficits, Normal Mood/Affect Skin: Normal Color, Warm/Dry Results/Procedures Lab Patient resulted labs reviewed. Assessment/Plan Assessment and Plan Assess & Plan/Chief Complaint Assessment: Left leg cellulitis severe Plan: See plan below Diagnosis/Problems Diagnosis/Problems (1) Cellulitis of left leg Status: Acute (2) Sepsis Status: Resolved Resolution Date/Time: 02/12/18 @ 10:08 (3) Anxiety Status: Chronic (4) Hypothyroidism Status: Chronic Qualifiers: Hypothyroidism type: acquired Qualified Codes: E03.9 - Hypothyroidism, unspecified Clinical Quality Measures DVT/VTE Risk/Contraindication: Risk Factor Score Per Nursin RFS Level Per Nursing on Admit: 2=Moderate DIMATTIAARINA MED STUDENT 12/12/18 1007: Subjective HPI/CC On Admission Date Seen by Provider: Feb 12, 2018 Time Seen by Provider: 07:15 Subjective/Events-last exam Pt is awake and alert this morning Febrile overnight - 102.5 Reports he is feeling better, no pain in LLE Denies any bowel/bladder dysfunction Denies SOB or chest pain Focused Exam Respiratory: Lungs Clear Cardiovascular: Regular Rate, Rhythm, No Murmur Skin: normal color, rash Objective Exam General Appearance: No Apparent Distress Neck: Full Range of Motion Respiratory: Chest Non Tender, Lungs Clear Cardiovascular: Regular Rate, Rhythm Extremity: Normal Capillary Refill, Pedal Edema, Swelling Neurologic/Psychiatric: Alert, Oriented x3 Skin: Warm/Dry Assessment/Plan Assessment and Plan Assess & Plan/Chief Complaint Assessment: Cellulitis, LLE Sepsis Hypothyroidism Anxiety Plan: Start enoxaparin - d/c leg compression Restart home meds D/C IVF Continue IV abx Ambulate Diagnosis/Problems Diagnosis/Problems (1) Cellulitis of left leg Status: Acute (2) Sepsis Status: Resolved Resolution Date/Time: 02/12/18 @ 10:08 (3) Anxiety Status: Chronic (4) Hypothyroidism Status: Chronic Qualifiers: Hypothyroidism type: acquired Qualified Codes: E03.9 - Hypothyroidism, unspecified NAOMY BELTRÁN DO Feb 12, 2018 09:33 ARINA ROSENTHAL MED STUDENT Feb 12, 2018 10:07
[2018-02-12] MEDS: ACETAMINOPHEN 325 MG TABLET PO SCH ×4 (09:55→20:11)
[2018-02-12] MEDS: ENOXAPARIN 40 MG/0.4 ML (LOVENOX) SYR SC SCH (09:55)
[2018-02-12] MEDS ORDERED: CALCIUM CARBONATE 500 MG (TUMS) TAB.CHEW PO PRN (10:30)
[2018-02-12] MEDS ORDERED: guaiFENesin/DM (ROBITUSSIN DM) 10 ML UDC PO PRN (10:30)
[2018-02-12] MEDS ORDERED: hydrOXYzine (VISTARIL) 25 MG CAP PO PRN (10:31)
[2018-02-12] MEDS ORDERED: CHLORASEPTIC LOZENGE MM PRN (10:45)
[2018-02-12] MEDS ORDERED: TETRAHYDROZOLINE (VISINE) 0.05% 15 ML BTL OU PRN (10:45)
[2018-02-12] MEDS ORDERED: PROMETHAZINE/ CODEINE SYRUP 5 ML UDC PO PRN (10:45)
[2018-02-12] MEDS: VANCOMYCIN 2000 MG/NS 500 ML IVPB IV SCH ×4 (11:17→23:14)
[2018-02-12] MEDS: NAPROXEN 250 MG (NAPROSYN) TABLET PO SCH ×2 (11:18→20:11)
[2018-02-12 12:00] VITALS: BP 118/76
[2018-02-12 16:15] VITALS: BP 121/79
[2018-02-12 19:30] VITALS: BP 121/77
[2018-02-12] MEDS: LEVOTHYROXINE 100 MCG (LEVOTHROID) TAB PO SCH (20:11)
[2018-02-12] MEDS: cefTRIAXone 1 GM/NS 50 ML IVPB IV SCH ×2 (20:12)
[2018-02-12] MEDS: SIMvastatin 10 MG (ZOCOR) TAB PO SCH (20:12)
[2018-02-12] MEDS: MONTELUKAST 10 MG (SINGULAIR) TAB PO SCH (20:12)
[2018-02-12] MEDS: SERTRALINE 100 MG (ZOLOFT) TAB PO SCH (20:12)
[2018-02-12] MEDS ORDERED: guaiFENesin (MUCINEX) 600 MG TAB PO PRN (21:00)
[2018-02-13] VITALS (7 sets, daily range): BP systolic 18–129; BP diastolic 71–89
[2018-02-13] MEDS: CATHETER FLUSH 10 ML SYR IV SCH ×3 (05:56→21:07)
[2018-02-13] MEDS: ENOXAPARIN 40 MG/0.4 ML (LOVENOX) SYR SC SCH (09:13)
[2018-02-13] MEDS: NAPROXEN 250 MG (NAPROSYN) TABLET PO SCH ×2 (09:13→20:19)
[2018-02-13] MEDS: ACETAMINOPHEN 325 MG TABLET PO SCH ×4 (09:13→20:18)
[2018-02-13] MEDS: VANCOMYCIN 2000 MG/NS 500 ML IVPB IV SCH ×4 (09:13→21:07)
--- NOTE | 2018-02-13 11:33 | Progress Note-Hospitalist ---
NAOMY BELTRÁN 02/13/18 1133: Subjective HPI/CC On Admission Date Seen by Provider: Feb 13, 2018 Time Seen by Provider: 10:00 The patient is a 42-year-old white male who presented to the emergency room yesterday. He reported that he had begun to have redness and swelling of his left lower leg which was continuing to get worse. The time frame was said to be 24 hours. He denies any previous incidence of infection or vein problems. He is intellectually challenged but high performing. 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 Subjective/Events-last exam Patient doing better Lives in skilled nursing so will likely need 1 more day of supervision Ambulating today Review of Systems Musculoskeletal: leg pain Focused Exam Lactate Level Objective Exam Vital Signs Vital Signs Date Time Temp Pulse Resp B/P (MAP) Pulse Ox O2 Delivery O2 Flow Rate FiO2 02/13/18 19:55 97.4 57 20 18/71 (54) 96 Room Air Capillary Refill : Less Than 3 Seconds General Appearance: No Apparent Distress, WD/WN, Chronically ill Respiratory: Chest Non Tender, Lungs Clear, Normal Breath Sounds, No Accessory Muscle Use, No Respiratory Distress Cardiovascular: Regular Rate, Rhythm, No Edema, No Gallop, No JVD, No Murmur, Normal Peripheral Pulses Extremity: Pedal Edema, Swelling (LLE) Neurologic/Psychiatric: Alert, Oriented x3, No Motor/Sensory Deficits, Normal Mood/Affect Results/Procedures Lab Patient resulted labs reviewed. Assessment/Plan Assessment and Plan Assess & Plan/Chief Complaint Assessment: Left leg cellulitis severe Plan: See plan below Diagnosis/Problems Diagnosis/Problems (1) Cellulitis of left leg Status: Acute (2) Sepsis Status: Resolved Resolution Date/Time: 02/12/18 @ 10:08 (3) Anxiety Status: Chronic (4) Hypothyroidism Status: Chronic Qualifiers: Hypothyroidism type: acquired Qualified Codes: E03.9 - Hypothyroidism, unspecified Clinical Quality Measures DVT/VTE Risk/Contraindication: Risk Factor Score Per Nursin RFS Level Per Nursing on Admit: 2=Moderate ARINA ROSENTHAL MED STUDENT 02/13/18 1204: Subjective Subjective/Events-last exam Pt resting comfortably in bed this morning Afebrile for 24 hours Denies any SOB, chest pain, or pain in his leg Swelling seemed to decrease a bit, still erythematous and warm Focused Exam Respiratory: Chest Non Tender, Lungs Clear Cardiovascular: Regular Rate, Rhythm, No Murmur Skin: normal color, warm/dry, rash (LLE) Objective Exam General Appearance: No Apparent Distress Respiratory: Chest Non Tender, Normal Breath Sounds Cardiovascular: Regular Rate, Rhythm Extremity: Normal Capillary Refill, Non Tender, Swelling (LLE) Neurologic/Psychiatric: Alert, Oriented x3 Assessment/Plan Assessment and Plan Assess & Plan/Chief Complaint Assessment: LLE cellulitis Plan: Continue IV abx, DVT prophylaxis Increase ambulation today, see how cellulitis reacts D/C tomorrow pending progress today Diagnosis/Problems Diagnosis/Problems (1) Cellulitis of left leg Status: Acute NAOMY BELTRÁN DO Feb 13, 2018 11:33 ARINA ROSENTHAL MED STUDENT Feb 13, 2018 12:04
[2018-02-13] MEDS: ACETAMINOPHEN 500 MG TAB (TYLENOL) PO PRN (13:08)
[2018-02-13] MEDS: cefTRIAXone 1 GM/NS 50 ML IVPB IV SCH ×2 (19:52)
[2018-02-13] MEDS: SERTRALINE 100 MG (ZOLOFT) TAB PO SCH (20:18)
[2018-02-13] MEDS: SIMvastatin 10 MG (ZOCOR) TAB PO SCH (20:18)
[2018-02-13] MEDS: MONTELUKAST 10 MG (SINGULAIR) TAB PO SCH (20:19)
[2018-02-13] MEDS: LEVOTHYROXINE 100 MCG (LEVOTHROID) TAB PO SCH (20:19)
[2018-02-14 04:00] VITALS: BP 118/77
[2018-02-14] MEDS: CATHETER FLUSH 10 ML SYR IV SCH (05:50)
[2018-02-14 08:00] VITALS: BP 117/75
[2018-02-14] MEDS ORDERED: SULF1TAB34 PO (08:39)
[2018-02-14] MEDS ORDERED: APIX2.5T PO (08:39)
[2018-02-14] MEDS: NAPROXEN 250 MG (NAPROSYN) TABLET PO SCH (08:40)
[2018-02-14] MEDS: ACETAMINOPHEN 325 MG TABLET PO SCH (08:40)
[2018-02-14] MEDS: ENOXAPARIN 40 MG/0.4 ML (LOVENOX) SYR SC SCH (08:41)
--- NOTE | 2018-02-14 08:43 | Discharge Summary-Hospitalist ---
Diagnosis/Chief Complaint Date of Admission Feb 11, 2018 at 11:50 Date of Discharge Discharge Date: Feb 14, 2018 Admission Diagnosis Cellulitis left lower extremity. Discharge Diagnosis (1) Cellulitis of left leg Status: Acute Discharge Summary Discharge Physical Exam Allergies: Uncoded Allergies: BEE AND WASPS (Allergy, Unknown, 11/04/14) POISON YASMINE AND OAK (Allergy, Unknown, 11/04/14) Vitals & I&Os Vital Signs Date Time Temp Pulse Resp B/P (MAP) Pulse Ox O2 Delivery O2 Flow Rate FiO2 02/14/18 12:00 60 22 117/75 96 Room Air 02/14/18 08:00 97.7 General Appearance: No Apparent Distress, WD/WN, Chronically ill Neurologic/Psychiatric: Alert, Oriented x3, No Motor/Sensory Deficits, Normal Mood/Affect Hospital Course Hospital course: Patient had a standard hospital course he was admitted for left lower extremity cellulitis placed on empiric broad-spectrum antibiotics and IV fluids. IV fluids were discontinued patient overall improved status but due to the fact that he is mentally challenged and [facility] a [facility] he was kept one more day for IV antibiotics with ambulation and he was deemed stable for discharge on Saturday. He will be on Eliquis for DVT prophylaxis for an additional 2 weeks along with Bactrim twice daily for an additional 7 days. Labs (last 24 hrs) Microbiology 02/10/18 Blood Culture - Preliminary, Resulted No growth Patient resulted labs reviewed. Discussion & Recommendations Discharge Planning: <30 minutes discharge planning Discharge Home Medications: Active Scripts Active Bactrim 400-80 mg Tablet (Sulfamethoxazole/Trimethoprim) 1 Each Tablet 1 Each PO BID Eliquis (Apixaban) 2.5 Mg Tablet 2.5 Mg PO BID Reported Simvastatin 10 Mg Tablet 10 Mg PO HS Miconazole Nitrate 45 Gm Cream.appl TOP BID PRN APPLY TO BOTH FEET FOR RASH Naproxen 500 Mg Tablet 500 Mg PO BID Risperdal Consta (Risperidone) 12.5 Mg/2 Ml Disp.syrin 12.5 Mg IM EVERY 2 WEEKS Visine (Tetrahydrozoline HCl) 15 Ml Drops 2 Drop OU Q6H PRN Tylenol (Acetaminophen) 325 Mg Tablet 650 Mg PO Q6H PRN Calcium (Calcium Carbonate) 500 Mg Tab.chew 1,000 Mg PO Q4H PRN Triple Antibiotic Ointment (Neomycin/Polymyxin/Bacitracin) 0.9 Gm Oint TP Q12H PRN Guaifenesin Dm Syrup (Guaifenesin/Dextromethorphan) 5 Ml Syrup 10 Ml PO Q6H PRN Promethazine-Codeine Syrup (Promethazine HCl/Codeine) 118 Ml Syrup 5 Ml PO Q6H PRN Proair Hfa (Albuterol Sulfate) 1 Puff Puff 2 Puff IH Q4H PRN 1 PUFF = 90 MCG Mucinex D ER 600-60 mg Tablet (Guaifenesin/Pseudoephedrne HCl) 1 Each Tab.er.12h 1 Tab PO Q12H PRN Milk of Magnesia (Magnesium Hydroxide) 400 Mg/5 Ml Oral.susp 30 Ml PO Q12H PRN Lotrisone Cream (Clotrimazole/Betamethasone Dip) 15 Gm Cream..g. TP Q12H PRN Imodium A-D (Loperamide HCl) 2 Mg Tablet PO UD PRN GIVE 2 TABS AFTER FIRST WATERY STOOL; AND GIVE 1 TAB AFTER EACH SUBSEQUENT WATERY STOOL- NTE 4 DOSES IN 24 HOURS Hydroxyzine HCl 50 Mg Tablet 50 Mg PO DAILY PRN Hydrocortisone 28.35 Gm Cream..g. TP Q8H PRN 1% Cyclobenzaprine HCl 10 Mg Tablet 10 Mg PO Q8H PRN Cough Drops (Eucalyptus/Menthol) 1 Each Lozenge 1 Melania MM Q1H PRN Benadryl (Diphenhydramine HCl) 25 Mg Capsule 50 Mg PO Q6H PRN Benadryl (Diphenhydramine HCl) 25 Mg Capsule 25 Mg PO Q6H PRN Tylenol (Acetaminophen) 325 Mg Tablet 650 Mg PO QID Levothyroxine Sodium 100 Mcg Tablet 100 Mcg PO 2100 Sertraline HCl 100 Mg Tablet 100 Mg PO HS Montelukast Sodium 10 Mg Tablet 10 Mg PO HS Instructions to patient/family Please see electronic discharge instructions given to patient. Clinical Quality Measures DVT/VTE Risk/Contraindication: Risk Factor Score Per Nursin RFS Level Per Nursing on Admit: 2=Moderate NAOMY BELTRÁN DO Feb 14, 2018 08:43
[2018-02-14] MEDS: VANCOMYCIN 2000 MG/NS 500 ML IVPB IV SCH ×2 (10:11)
[2018-02-14 12:00] VITALS: BP 117/75
[2018-02-19] MEDS ORDERED: RISPERIDONE 12.5 MG IM SCH (09:00)
== END 2018-02-14 12:00 | disposition home or self-care (01) | DRG 872 ==
LOC: EDUNIT# 19:16 → ER 19:17 → 4TH 19:37 → UNDOADMOB 19:37 → 4TH 21:03 → INTOOBSV 02-11 11:50 → OBSVTOIN 02-11 11:50 → UNDODISIN 02-14 12:00
PROVIDERS: ADMIT Internal Medicine; ATTEND Internal Medicine
DX: A41.9 Sepsis, unspecified organism (principal); L03.116 Cellulitis of left lower limb; E03.9 Hypothyroidism, unspecified; F41.9 Anxiety disorder, unspecified; F60.9 Personality disorder, unspecified; F70 Mild intellectual disabilities; F17.210 Nicotine dependence, cigarettes, uncomplicated
CPT/HCPCS: 36415; 80053; 80202; 83605; 85025; 87040; 90686; 94760; 96361; 96365; 96372; 96375; G0378

== ENCOUNTER → 2018-04-09 | Outpatient (CLI) | payer MEDICARE, MEDICAID ==
[~2018-04-09] MED LIST changes: +ACET325T38 PO; +APIX2.5T PO; +CALC-308 PO; +CALC300T4 PO; +CLOT15CR4 TP; +CODE118S4 PO; +CYCL10TA9 PO; +DIPH25CA79 PO; +EUCA1LOZ28 MM; +GUAI-370 PO; +GUAI5SYR PO; +HYDR28.3 TP; +HYDR50TA76 PO; +LEVO100T7 PO; +LOPE-134 PO; +MAGN400O7 PO; +MICO45CR11 TOP; +NPB.9O TP; +RISP12.5 IM; +RT-ALBUINH IH; +SERT100T8 PO; +SIMV10TA3 PO; +SULF1TAB34 PO; +TETR15DR74 OU
--- NOTE | 2018-04-09 13:48 | Diagnostic Imaging Report ---
INDICATION: Left groin lump for several weeks. FINDINGS: Sonographic interrogation of the left groin was performed. There are several lymph nodes identified. Largest lymph node measures 2.2 x 0.9 x 1.8 cm. Additional lymph node measures 2.1 x 1.0 x 1.4 cm. No fluid collections are seen. IMPRESSION: There are mildly enlarged lymph nodes in the left groin. These do not demonstrate a fatty hilum. Overlying cortex does not appear to be appreciably thickened and these may be reactive. Continued clinical followup to confirm stability is recommended. Dictated by: Dictated on workstation # [id number]
== END ==
LOC: RAD 10:14
PROVIDERS: ATTEND Family Medicine
DX: R59.0 Localized enlarged lymph nodes (principal)
CPT/HCPCS: 76999

== ENCOUNTER 2020-08-01 15:12 | Emergency (ER) | payer MEDICARE, MEDICAID ==
[~2020-08-01] VITALS: Ht 177 cm; Wt 108.0 kg
[2020-08-01 15:12] VITALS: BP 139/81
[~2020-08-01 15:12] MED LIST changes: -MONT10TA24 PO; +MONT10TA32 PO; +SERT-414 PO; -SERT100T8 PO; +SIMV10TA26; +SIMV10TA26 PO; -SIMV10TA3; -SIMV10TA3 PO
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
== END 2020-08-01 16:01 | disposition home or self-care (01) ==
LOC: EDUNIT# 15:12 → ER 15:13
DX: S40.012A Contusion of left shoulder, initial encounter (principal); S50.312A Abrasion of left elbow, initial encounter; J45.909 Unspecified asthma, uncomplicated; F41.9 Anxiety disorder, unspecified; F60.9 Personality disorder, unspecified; Z77.22 Contact with and (suspected) exposure to environmental tobacco smoke (acute) (chronic); Z79.899 Other long term (current) drug therapy; V19.9XXA Pedal cyclist (driver) (passenger) injured in unspecified traffic accident, initial encounter
CPT/HCPCS: 73030; 73080

== ENCOUNTER 2020-09-13 18:29 | Emergency (ER) | payer MEDICARE, MEDICAID ==
[~2020-09-13] VITALS: Ht 177 cm; Wt 108.0 kg
[~2020-09-13 18:29] MED LIST changes: -MICO45CR11 TOP; +MICO45CR50 TOP
[2020-09-13] MEDS ORDERED: TETANUS,DIPTH,PERTUSS P/F (BOOSTRIX) 0.5 ML VIAL IM ONE (19:15)
--- NOTE | 2020-09-13 19:26 | Diagnostic Imaging Report ---
CLINICAL INDICATION: Patient complains of right hand pain across MCP joints after repeatedly punching a wall. EXAM: X-ray of the right hand, 3 views. COMPARISON: X-ray of the right hand dated 08/20/2007. FINDINGS AND IMPRESSION: There is no acute fracture or dislocation. There is no significant bone or joint abnormality. There is soft tissue swelling seen dorsal to the metacarpal bones. Dictated by: Dictated on workstation # [id number]
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
[2020-09-13 19:51] VITALS: BP 106/81
== END 2020-09-13 19:54 | disposition home or self-care (01) ==
LOC: EDUNIT# 18:29 → ER 18:32
DX: S60.221A Contusion of right hand, initial encounter (principal); J45.909 Unspecified asthma, uncomplicated; E03.9 Hypothyroidism, unspecified; F41.9 Anxiety disorder, unspecified; Z23 Encounter for immunization; Z79.890 Hormone replacement therapy; Z79.01 Long term (current) use of anticoagulants; Z79.899 Other long term (current) drug therapy; W22.01XA Walked into wall, initial encounter
CPT/HCPCS: 73130; 90715

== ENCOUNTER 2020-10-12 13:00 | Emergency (ER) | payer MEDICARE, MEDICAID ==
[~2020-10-12] VITALS: Ht 180 cm; Wt 129.0 kg
--- NOTE | 2020-10-12 14:08 | Diagnostic Imaging Report ---
Indication: Right hand pain. COMPARISON: 09/13/2020. TECHNIQUE: 3 views of the right hand. FINDINGS: There is dorsal soft tissue swelling in the hand. No osseous erosions or healing fracture. No hypertrophic degenerative changes. Stable punctate 2 mm hyperdensity in the dorsal and ulnar soft tissues at the level of the metacarpal heads. IMPRESSION: 1. No acute or healing fracture. 2. Moderate dorsal soft tissue swelling. Dictated by: Dictated on workstation # [id number]
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
[2020-10-12 14:28] VITALS: BP 145/79
== END 2020-10-12 14:27 | disposition home or self-care (01) ==
LOC: EDUNIT# 13:00 → ER 13:01
DX: S60.221A Contusion of right hand, initial encounter (principal); J45.909 Unspecified asthma, uncomplicated; E03.9 Hypothyroidism, unspecified; F41.9 Anxiety disorder, unspecified; F60.9 Personality disorder, unspecified; F17.200 Nicotine dependence, unspecified, uncomplicated; Z79.890 Hormone replacement therapy; Z79.899 Other long term (current) drug therapy; W22.01XA Walked into wall, initial encounter
CPT/HCPCS: 73130

== ENCOUNTER 2020-12-08 13:54 | Emergency (ER) | payer MEDICARE, MEDICAID ==
[~2020-12-08] VITALS: Ht 180 cm; Wt 100.0 kg
--- NOTE | 2020-12-08 14:09 | ED General ---
General Stated Complaint: L LEG SWELLING/RED Source of Information: Patient Exam Limitations: No Limitations History of Present Illness Date Seen by Provider: Dec 08, 2020 Time Seen by Provider: 14:03 Initial Comments To ER by private vehicle with reports of left lower extremity redness and swelling for 1 week no known injury. No history of this. Timing/Duration: 1-2 Days, 1 Week Severity: Moderate Associated Systoms: Denies Symptoms; No Fever/Chills Allergies and Home Medications Allergies Uncoded Allergies: BEE AND WASPS (Allergy, Unknown, 11/04/14) POISON YASMINE AND OAK (Allergy, Unknown, 11/04/14) Patient Home Medication List Home Medication List Reviewed: Yes Albuterol Sulfate (Proair Hfa) 1 Puff Puff, 2 PUFF IH Q4H PRN for SHORTNESS OF BREATH, (Reported) Entered as Reported by: LING GARVEY on 02/11/18 110 Apixaban (Eliquis) 2.5 Mg Tablet, 2.5 MG PO BID Prescribed by: NAOMY BELTRÁN on 02/14/18 0839 Apixaban (Eliquis) 5 Mg Tablet, 5 MG PO BID Prescribed by: CAMELIA BRAN on 12/08/20 1459 Calcium Carbonate (Calcium) 500 Mg Tab.chew, 1,000 MG PO Q4H PRN for HEARTBURN, (Reported) Entered as Reported by: LING GARVEY on 02/11/18 110 Cyclobenzaprine HCl (Cyclobenzaprine HCl) 10 Mg Tablet, 10 MG PO Q8H PRN for MUSCLE SPASMS, (Reported) Entered as Reported by: LING GARVEY on 02/11/18 110 Diphenhydramine HCl (Benadryl) 25 Mg Capsule, 50 MG PO Q6H PRN for ALLERGIC REACTION, (Reported) Entered as Reported by: LING GARVEY on 02/11/18 110 Levothyroxine Sodium (Levothyroxine Sodium) 100 Mcg Tablet, 100 MCG PO 2100, (Reported) Entered as Reported by: LING GARVEY on 02/11/18 110 Risperidone (Risperdal Consta) 12.5 Mg/2 Ml Disp.syrin, 12.5 MG IM EVERY 2 WEEKS, (Reported) Entered as Reported by: LING GARVEY on 02/11/18 1131 Sertraline HCl (Sertraline HCl) 100 Mg Tablet, 100 MG PO HS, (Reported) Entered as Reported by: LING GARVEY on 02/11/18 1107 Simvastatin (Simvastatin) 10 Mg Tablet, 10 MG PO HS, (Reported) Entered as Reported by: LING GARVEY on 02/11/18 1153 Tetrahydrozoline HCl (Visine) 15 Ml Drops, 2 DROP OU Q6H PRN for EYE REDNESS, (Reported) Entered as Reported by: LING GARVEY on 02/11/18 1107 Review of Systems Review of Systems Constitutional: see HPI EENTM: see HPI Respiratory: no symptoms reported Cardiovascular: no symptoms reported Genitourinary: no symptoms reported Musculoskeletal: no symptoms reported Skin: no symptoms reported Psychiatric/Neurological: No Symptoms Reported Hematologic/Lymphatic: No Symptoms Reported Immunological/Allergic: no symptoms reported Past Qpwzbof-Rlckek-Zdpoky Hx Immunizations Up To Date Tetanus Booster (TDap): Unknown Seasonal Allergies Seasonal Allergies: No Past Medical History Surgeries: Yes (left total knee) Orthopedic Respiratory: Yes Asthma Cardiac: No Neurological: No Genitourinary: No Gastrointestinal: No Musculoskeletal: Yes (LEFT KNEE REPLACEMENT) Endocrine: Yes Hypothyroidsim HEENT: Yes (GLASSES) Loss of Vision: Bilateral Cancer: No 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 0.0oz. 107.970512qp; 39.00 BMI Method:Stated General Appearance: No Apparent Distress, WD/WN Eyes: Bilateral Eye Normal Inspection, Bilateral Eye PERRL, Bilateral Eye EOMI Neck: Full Range of Motion, Normal Inspection Respiratory: No Accessory Muscle Use, No Respiratory Distress Cardiovascular: Regular Rate, Rhythm, Normal Peripheral Pulses Gastrointestinal: Normal Bowel Sounds, Non Tender, Soft Extremity: Normal Capillary Refill, Swelling, Other Neurologic/Psychiatric: Alert, Oriented x3 Progress/Results/Core Measures Suspected Sepsis SIRS Temperature: Pulse: Respiratory Rate: Laboratory Tests 12/08/20 14:40: White Blood Count 6.1 Blood Pressure / Mean: Laboratory Tests 12/08/20 14:40: Creatinine 0.86, Platelet Count 236 Results/Orders Lab Results Laboratory Tests Test 12/08/20 14:40 Range/Units White Blood Count 6.1 4.3-11.0 10^3/uL Red Blood Count 4.57 4.30-5.52 10^6/uL Hemoglobin 14.6 13.3-17.7 g/dL Hematocrit 42 40-54 % Mean Corpuscular Volume 92 80-99 fL Mean Corpuscular Hemoglobin 32 25-34 pg Mean Corpuscular Hemoglobin Concent 35 32-36 g/dL Red Cell Distribution Width 13.3 10.0-14.5 % Platelet Count 236 130-400 10^3/uL Mean Platelet Volume 9.4 9.0-12.2 fL Immature Granulocyte % (Auto) 0 % Neutrophils (%) (Auto) 46 42-75 % Lymphocytes (%) (Auto) 43 12-44 % Monocytes (%) (Auto) 8 0-12 % Eosinophils (%) (Auto) 2 0-10 % Basophils (%) (Auto) 1 0-10 % Neutrophils # (Auto) 2.8 1.8-7.8 10^3/uL Lymphocytes # (Auto) 2.6 1.0-4.0 10^3/uL Monocytes # (Auto) 0.5 0.0-1.0 10^3/uL Eosinophils # (Auto) 0.1 0.0-0.3 10^3/uL Basophils # (Auto) 0.1 0.0-0.1 10^3/uL Immature Granulocyte # (Auto) 0.0 0.0-0.1 10^3/uL Sodium Level 138 135-145 MMOL/L Potassium Level 4.1 3.6-5.0 MMOL/L Chloride Level 105 98-107 MMOL/L Carbon Dioxide Level 23 21-32 MMOL/L Anion Gap 10 5-14 MMOL/L Blood Urea Nitrogen 12 7-18 MG/DL Creatinine 0.86 0.60-1.30 MG/DL Estimat Glomerular Filtration Rate 97 BUN/Creatinine Ratio 14 Glucose Level 97 70-105 MG/DL Calcium Level 9.0 8.5-10.1 MG/DL My Orders Orders - CAMELIA BRAN [employer]ERSON[employer] Cbc With Automated Diff (12/08/20 14:01) Basic Metabolic Panel (12/08/20 14:01) Us Venous Lower Ext Lt (12/08/20 14:01) Procalcitonin (Pct) (12/08/20 14:01) Apixaban Tablet (Eliquis Tablet) (12/08/20 15:15) Vital Signs/I&O 12/08/20 14:06 Temp 37.0 Pulse 75 Resp 16 B/P (MAP) 134/86 (102) Pulse Ox 96 Capillary Refill : Departure Impression Primary Impression: DVT, lower extremity Disposition: HOME, SELF-CARE Condition: Stable Departure-Patient Inst. Decision time for Depature: 14:46 Referrals: [facility] (PCP/Family) Primary Care Physician Patient Instructions: Deep Vein Thrombosis (DVT) ED, Going Home on Blood Thinners Add. Discharge Instructions: 1. Call [facility] today to make an appointment to be seen next week for recheck. You will need to be on the blood thinners for at least 3 months. Take them as directed. Return to ER for any concerns Scripts Apixaban (Eliquis) 5 Mg Tablet 5 MG PO BID for 30 Days, #74 TAB TAKE 2 TABLETS BID X 7 DAYS, THEN 1 TABLET BID Prov: CAMELIA BRAN [employer] 12/08/20 CAMELIA BRAN APRN Dec 08, 2020 14:09
[2020-12-08 14:54] LABS: BASOPHILS # (AUTO) 0.1 10^3/uL (0.0-0.1); BASOPHILS % (AUTO) 1 % (0-10); EOSINOPHILS # (AUTO) 0.1 10^3/uL (0.0-0.3); EOSINOPHILS % (AUTO) 2 % (0-10); HEMATOCRIT 42 % (40-54); HEMOGLOBIN 14.6 g/dL (13.3-17.7); LYMPHOCYTES # (AUTO) 2.6 10^3/uL (1.0-4.0); LYMPHOCYTES % (AUTO) 43 % (12-44); MEAN CORPUSCULAR HEMOGLOBIN 32 pg (25-34); MEAN CORPUSCULAR HGB CONC 35 g/dL (32-36); MEAN CORPUSCULAR VOLUME 92 fL (80-99); MEAN PLATELET VOLUME 9.4 fL (9.0-12.2); MONOCYTES # (AUTO) 0.5 10^3/uL (0.0-1.0); MONOCYTES % (AUTO) 8 % (0-12); NEUTROPHILS # (AUTO) 2.8 10^3/uL (1.8-7.8); NEUTROPHILS % (AUTO) 46 % (42-75); PLATELET COUNT 236 10^3/uL (130-400); WHITE BLOOD COUNT 6.1 10^3/uL (4.3-11.0)
[2020-12-08] MEDS ORDERED: APIX5TAB PO (14:59)
[2020-12-08 15:04] LABS: POTASSIUM 4.1 MMOL/L (3.6-5.0)
[2020-12-08 15:10] LABS: CREATININE SERUM 0.86 MG/DL (0.60-1.30)
[2020-12-08] MEDS ORDERED: APIXABAN 5 MG (ELIQUIS) TABLET PO ONE (15:15)
--- NOTE | 2020-12-08 15:15 | Diagnostic Imaging Report ---
PROCEDURE: US left lower extremity venous. TECHNIQUE: Multiple real-time grayscale images were obtained over the left lower extremity in various projections. Additional duplex Doppler and color Doppler images were also obtained. INDICATION: Left leg swelling for one week. FINDINGS: The common femoral vein as well as the upper and mid superficial femoral veins are widely patent and show normal compressibility. There is thrombus in the lower superficial femoral vein extending into the popliteal vein as well as the calf veins. No fluid collection or mass is detected. IMPRESSION: Left lower extremity DVT, as described. Dictated by: Dictated on workstation # [id number]
[2020-12-08] MEDS ORDERED: APIXABAN 5 MG (ELIQUIS) TABLET ONE (15:21)
[2020-12-08 15:34] VITALS: BP 134/86
== END 2020-12-08 15:35 | disposition home or self-care (01) ==
LOC: EDUNIT# 13:54 → ER 13:56
DX: I82.402 Acute embolism and thrombosis of unspecified deep veins of left lower extremity (principal); J45.909 Unspecified asthma, uncomplicated; E03.9 Hypothyroidism, unspecified; F41.9 Anxiety disorder, unspecified; Z79.01 Long term (current) use of anticoagulants; Z79.890 Hormone replacement therapy; Z79.899 Other long term (current) drug therapy
CPT/HCPCS: 36415; 80048; 84145; 85025

== ENCOUNTER 2021-01-11 18:57 | Emergency (ER) | payer MEDICARE, MEDICAID ==
[~2021-01-11 18:57] MED LIST changes: +APIX5TAB PO
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
--- NOTE | 2021-01-11 19:28 | Diagnostic Imaging Report ---
INDICATION: Right hand injury, punched a wall. AP, oblique, lateral views of the right hand are obtained and compared to 10/12/2020. There is a nondisplaced horizontal fracture of the midshaft of the 4th metacarpal. Remaining bony structures appear intact. IMPRESSION: Acute nondisplaced horizontal fracture of midshaft of 4th metacarpal. Dictated by: Dictated on workstation # [id number]
[2021-01-11 19:48] VITALS: BP 131/87
== END 2021-01-11 19:49 | disposition home or self-care (01) ==
LOC: EDUNIT# 18:57 → ER 18:59
DX: S62.354A Nondisplaced fracture of shaft of fourth metacarpal bone, right hand, initial encounter for closed fracture (principal); J45.909 Unspecified asthma, uncomplicated; E03.9 Hypothyroidism, unspecified; F41.9 Anxiety disorder, unspecified; Z79.890 Hormone replacement therapy; Z79.01 Long term (current) use of anticoagulants; Z79.899 Other long term (current) drug therapy; W22.01XA Walked into wall, initial encounter
CPT/HCPCS: 29125; 73130

== ENCOUNTER → 2021-01-17 | Outpatient (CLI) | payer MEDICARE, MEDICAID | LOC: ORTHO 14:07 | PROVIDERS: ATTEND Orthopaedic Surgery | DX: S62.354A Nondisplaced fracture of shaft of fourth metacarpal bone, right hand, initial encounter for closed fracture (principal); X58.XXXA Exposure to other specified factors, initial encounter | CPT/HCPCS: 99202 ==

== ENCOUNTER → 2021-01-31 | Outpatient (CLI) | payer MEDICARE, MEDICAID ==
[~2021-01-31] MED LIST changes: +CYCL10TA25 PO; -CYCL10TA9 PO; +MONT-40 PO; -MONT10TA32 PO
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
== END ==
LOC: ORTHO 13:12
PROVIDERS: ATTEND Orthopaedic Surgery
DX: S62.354A Nondisplaced fracture of shaft of fourth metacarpal bone, right hand, initial encounter for closed fracture (principal); W22.01XA Walked into wall, initial encounter
CPT/HCPCS: 73130; G0463; 99212

== ENCOUNTER 2021-08-07 23:43 | Emergency (ER) | payer MEDICARE, MEDICAID ==
[~2021-08-07] VITALS: Ht 178 cm; Wt 96.6 kg
[2021-08-07 23:45] VITALS: BP 113/79
[2021-08-08 00:14] LABS: BASOPHILS # (AUTO) 0.1 10^3/uL (0.0-0.1); BASOPHILS % (AUTO) 1 % (0-10); EOSINOPHILS # (AUTO) 0.3 10^3/uL (0.0-0.3); EOSINOPHILS % (AUTO) 4 % (0-10); HEMATOCRIT 41 % (40-54); HEMOGLOBIN 14.3 g/dL (13.3-17.7); LYMPHOCYTES # (AUTO) 3.6 10^3/uL (1.0-4.0); LYMPHOCYTES % (AUTO) 42 % (12-44); MEAN CORPUSCULAR HEMOGLOBIN 33 pg (25-34); MEAN CORPUSCULAR HGB CONC 35 g/dL (32-36); MEAN CORPUSCULAR VOLUME 94 fL (80-99); MEAN PLATELET VOLUME 9.8 fL (9.0-12.2); MONOCYTES # (AUTO) 0.5 10^3/uL (0.0-1.0); MONOCYTES % (AUTO) 6 % (0-12); NEUTROPHILS # (AUTO) 4.1 10^3/uL (1.8-7.8); NEUTROPHILS % (AUTO) 47 % (42-75); PLATELET COUNT 277 10^3/uL (130-400); WHITE BLOOD COUNT 8.6 10^3/uL (4.3-11.0)
[2021-08-08 00:17] LABS: ALBUMIN 3.8 GM/DL (3.2-4.5); CHLORIDE 107 MMOL/L (98-107); POTASSIUM 3.5 MMOL/L (3.6-5.0); SODIUM 139 MMOL/L (135-145)
[2021-08-08 00:18] LABS: AMYLASE 35 U/L (25-125); CALCIUM 8.5 MG/DL (8.5-10.1)
[2021-08-08 00:20] LABS: GLUCOSE 116 MG/DL (70-105); TOTAL PROTEIN 6.7 GM/DL (6.4-8.2)
[2021-08-08 00:21] LABS: CARBON DIOXIDE 21 MMOL/L (21-32)
[2021-08-08 00:22] LABS: BILIRUBIN,TOTAL 0.2 MG/DL (0.1-1.0)
[2021-08-08 00:23] LABS: ALKALINE PHOSPHATASE 70 U/L (40-136); CREATININE SERUM 0.73 MG/DL (0.60-1.30); GFR ESTIMATED 115
[2021-08-08 00:25] LABS: BUN/CREATININE RATIO 22
[2021-08-08 00:26] LABS: ALANINE AMINOTRANSFERASE 25 U/L (0-55); MAGNESIUM 1.9 MG/DL (1.6-2.4)
[2021-08-08 00:27] LABS: CREATINE KINASE 228 U/L (30-200); LIPASE 35 U/L (8-78)
[2021-08-08 00:34] LABS: CREATINE KINASE MB 4.6 NG/ML (<6.6)
[2021-08-08 00:40] LABS: ERYTHROCYTE SEDIMENTATION RATE 6 MM/HR (0-15)
[2021-08-08 00:45] LABS: PROTHROMBIN TIME PATIENT 13.1 SEC (12.2-14.7)
[2021-08-08 01:18] LABS: BILIRUBIN,URINE NEGATIVE (NEGATIVE); CLARITY,URINE CLEAR; COLOR,URINE YELLOW; GLUCOSE, URINE (UA) NEGATIVE (NEGATIVE); KETONES,URINE NEGATIVE (NEGATIVE); LEUKOCYTE ESTERASE ,URINE NEGATIVE (NEGATIVE); NITRITE,URINE NEGATIVE (NEGATIVE); PROTEIN,URINE NEGATIVE (NEGATIVE)
[2021-08-08 01:34] LABS: BACTERIA,URINE NEGATIVE /HPF
[2021-08-08 01:35] LABS: AMORPHOUS SEDIMENT,UR FEW AMOR URATES /LPF
[2021-08-08 01:42] LABS: AMPHETAMINE SCREEN, URINE NEGATIVE (NEGATIVE); BARBITURATE SCREEN URINE NEGATIVE (NEGATIVE); BENZODIAZEPINES SCREEN URINE NEGATIVE (NEGATIVE); CANNABINOID SCREEN, URINE NEGATIVE (NEGATIVE); COCAINE SCREEN URINE NEGATIVE (NEGATIVE); METHADONE STAT NEGATIVE (NEGATIVE); OPIATE SCREEN URINE NEGATIVE (NEGATIVE); OXYCODONE STAT NEGATIVE (NEGATIVE); PROPOXYPHENE STAT NEGATIVE (NEGATIVE); TRICYCLIC ANTIDEPRESSANTS SCRE NEGATIVE (NEGATIVE)
[2021-08-08] MEDS ORDERED: NS 100 ML (IVPB) BAG IV ONE (01:45)
[2021-08-08] MEDS ORDERED: CATHETER FLUSH 10 ML SYR IV PRN (01:45)
[2021-08-08] MEDS ORDERED: IOHEXOL 350 MG/ML 100 ML (OMNIPAQUE 350) VIAL IV ONE (01:45)
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
--- NOTE | 2021-08-08 05:31 | Diagnostic Imaging Report ---
PROCEDURE: CT angiography of the chest with contrast. TECHNIQUE: Multiple contiguous axial images were obtained through the chest after uneventful bolus administration of intravenous contrast. 3D reconstructed CTA MIP acquisitions were also performed. Auto Exposure Controls were utilized during the CT exam to meet ALARA standards for radiation dose reduction. INDICATION: Chest pain FINDINGS: There are no intraluminal pulmonary arterial filling defects. There is no pulmonary arterial embolus. The thoracic aorta patent, nonaneurysmal and nonacute. There is no pleural or pericardial effusion. No lung mass, no thoracic adenopathy. No findings of pneumonia or pulmonary edema. No acute or suspect chest wall pathology. The visualized upper abdomen showed no acute appearing abnormality. IMPRESSION: Negative for PE or other acute abnormalities Agree with preliminary. Dictated by: Dictated on workstation # [id number]
--- NOTE | 2021-08-08 06:18 | Diagnostic Imaging Report ---
INDICATION: Chest pain. TECHNIQUE: Single view chest 12:18 AM. CORRELATION STUDY: 10/15/2015 FINDINGS: The heart size, mediastinal configuration and pulmonary vascularity are within normal limits. The lungs are clear with no consolidating infiltrate. There is no significant effusion or pneumothorax. Old healed right posterior lateral rib fractures. IMPRESSION: 1. Negative appearing single view chest. Dictated by: Dictated on workstation # [id number]
== END 2021-08-08 03:40 | disposition home or self-care (01) ==
LOC: EDUNIT# 23:43 → ER 23:44
DX: S20.219A Contusion of unspecified front wall of thorax, initial encounter (principal); G47.34 Idiopathic sleep related nonobstructive alveolar hypoventilation; F17.210 Nicotine dependence, cigarettes, uncomplicated; F17.290 Nicotine dependence, other tobacco product, uncomplicated; W50.0XXA Accidental hit or strike by another person, initial encounter; Y93.83 Activity, rough housing and horseplay
CPT/HCPCS: 36415; 71045; 71275; 80053; 80306; 81000; 82150; 82550; 82553; 83690; 83735; 83874; 83880; 84484; 85025; 85610; 85652; 85730; 86141; 93005; 93041

== ENCOUNTER 2021-09-09 01:40 | Emergency (ER) | payer MEDICARE, MEDICAID ==
[~2021-09-09] VITALS: Ht 178 cm; Wt 96.6 kg
[2021-09-09] MEDS ORDERED: FAMOTIDINE 20 MG (PEPCID) TABLET PO STA (01:47)
[2021-09-09 01:55] LABS: BILIRUBIN,URINE NEGATIVE (NEGATIVE); CLARITY,URINE CLEAR; COLOR,URINE YELLOW; GLUCOSE, URINE (UA) NEGATIVE (NEGATIVE); KETONES,URINE NEGATIVE (NEGATIVE); LEUKOCYTE ESTERASE ,URINE NEGATIVE (NEGATIVE); NITRITE,URINE NEGATIVE (NEGATIVE); PH,URINE 5.5 (5-9); PROTEIN,URINE NEGATIVE (NEGATIVE)
--- NOTE | 2021-09-09 01:55 | ED Abdominal Pain ---
General Chief Complaint: Abdominal/GI Problems Stated Complaint: ABDOMINAL PAIN Source of Information: Patient Exam Limitations: No Limitations (QUINN LYONS MD) History of Present Illness Date Seen by Provider: Sep 09, 2021 Time Seen by Provider: 01:41 Initial Comments 45yoM with PMH of DVT on Eliquis, HTN, HLD coming in due to severe RUQ abd pain that started over an hour ago. Pain is sharp, nonradiating, and nothing seems to make better or worse. Denies any associated nausea, vomiting, diarrhea, constipation, chest pain, SOA, weakness, numbness, fever, dysuria, rash, or any other concerns. Has never had pain like this before. Denies any abdominal or chest surgeries. Last ate food about 5 hours ago without difficulty. (QUINN LYONS MD) Allergies and Home Medications Allergies Uncoded Allergies: BEE AND WASPS (Allergy, Unknown, 11/04/14) POISON YASMINE AND OAK (Allergy, Unknown, 11/04/14) Patient Home Medication List Home Medication List Reviewed: Yes (QUINN LYONS MD) Albuterol Sulfate (Proair Hfa) 1 Puff Puff, 2 PUFF IH Q4H PRN for SHORTNESS OF BREATH, (Reported) Entered as Reported by: LING GARVEY on 02/11/18 110 Apixaban (Eliquis) 2.5 Mg Tablet, 2.5 MG PO BID Prescribed by: NAOMY BELTRÁN on 02/14/18 0839 Apixaban (Eliquis) 5 Mg Tablet, 5 MG PO BID Prescribed by: CAMELIA BRAN on 12/08/20 1459 Calcium Carbonate (Calcium) 500 Mg Tab.chew, 1,000 MG PO Q4H PRN for HEARTBURN, (Reported) Entered as Reported by: LING GARVEY on 02/11/18 1107 Cyclobenzaprine HCl (Cyclobenzaprine HCl) 10 Mg Tablet, 10 MG PO Q8H PRN for MUSCLE SPASMS, (Reported) Entered as Reported by: LING GARVEY on 02/11/18 110 Diphenhydramine HCl (Benadryl) 25 Mg Capsule, 50 MG PO Q6H PRN for ALLERGIC REACTION, (Reported) Entered as Reported by: LING GARVEY on 02/11/18 1107 Famotidine (Pepcid) 20 Mg Tablet, 20 MG PO DAILY Prescribed by: QUINN LYONS on 09/09/21 0302 Levothyroxine Sodium (Levothyroxine Sodium) 100 Mcg Tablet, 100 MCG PO 2100, (Reported) Entered as Reported by: LING GARVEY on 02/11/18 110 Risperidone (Risperdal Consta) 12.5 Mg/2 Ml Disp.syrin, 12.5 MG IM EVERY 2 WEEKS, (Reported) Entered as Reported by: LING GARVEY on 02/11/18 1131 Sertraline HCl (Sertraline HCl) 100 Mg Tablet, 100 MG PO HS, (Reported) Entered as Reported by: LING GARVEY on 02/11/18 110 Simvastatin (Simvastatin) 10 Mg Tablet, 10 MG PO HS, (Reported) Entered as Reported by: LING GARVEY on 02/11/18 1153 Tetrahydrozoline HCl (Visine) 15 Ml Drops, 2 DROP OU Q6H PRN for EYE REDNESS, (Reported) Entered as Reported by: LING GARVEY on 02/11/18 1107 Review of Systems Review of Systems Constitutional: No fever EENTM: No Blurred Vision Respiratory: Denies Cough, Denies Shortness of Air Cardiovascular: Denies Chest Pain Gastrointestinal: Abdominal Pain; Denies Diarrhea, Denies Nausea, Denies Vomiting Genitourinary: No Symptoms Reported Musculoskeletal: no symptoms reported Skin: no symptoms reported Psychiatric/Neurological: No Symptoms Reported Endocrine: No Symptoms Reported Hematologic/Lymphatic: No Symptoms Reported (QUINN LYONS MD) All Other Systems Reviewed Negative Unless Noted: Yes (QUINN LYONS MD) Past Egnawdq-Vrhfaw-Xlyrgo Hx Patient Social History Tobacco Use?: Yes Tobacco type used: Cigarettes Substance use?: No Alcohol Use?: Yes Alcohol Frequency: Once in a while Pt feels they are or have been: No (QUINN LYONS MD) Immunizations Up To Date Tetanus Booster (TDap): Unknown First/Initial COVID19 Vaccinat: 2020 Second COVID19 Vaccination Abdulkadir: 2020 Third COVID19 Vaccination Date: 2020 COVID19 Vaccine Regulatory Assistant: yue (QUINN LYONS MD) Seasonal Allergies Seasonal Allergies: Yes (QUINN LYONS MD) Past Medical History Surgery/Hospitalization HX: left total knee, chronic chest pain, anxiety, personality disorder, mild MR, high cholesterol, hypothryoidism Surgeries: Yes (LEFT TOTAL KNEE REPLACEMENT) Joint Replacement, Orthopedic Respiratory: Yes Asthma Cardiac: No Neurological: No ("CHRONIC CHEST PAIN" --NO WORK UP/NEVER SOUGHT CARE) Genitourinary: No Gastrointestinal: No Musculoskeletal: Yes (LEFT KNEE REPLACEMENT) Endocrine: Yes Hypothyroidsim HEENT: Yes (GLASSES) Loss of Vision: Bilateral Cancer: No 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) Anxiety, Personality Disorder Integumentary: No Blood Disorders: No (QUINN LYONS MD) Physical Exam Vital Signs Vital Signs - First Documented 09/09/21 01:40 Temp 36.6 Pulse 81 Resp 16 B/P (MAP) 111/84 (93) Pulse Ox 97 O2 Delivery Room Air (LAURE MENDEZ MD) Vital Signs Capillary Refill : (QUINN LYONS MD) Height/Weight/BMI Height: 5'10.00" Weight: 238lbs. 0.0oz. [id number]; 30.00 BMI Method:Stated General Appearance: WD/WN, no apparent distress HEENT: PERRL/EOMI, normal ENT inspection, pharynx normal Neck: non-tender, full range of motion, supple, normal inspection Respiratory: chest non-tender, lungs clear, normal breath sounds, no respiratory distress, no accessory muscle use Cardiovascular: regular rate, rhythm, no edema, no murmur Gastrointestinal: normal bowel sounds, soft; No distended, No guarding, No rebound; tenderness (mild RUQ tenderness with deep palpation) Extremities: normal range of motion, non-tender, normal inspection, no pedal edema, no calf tenderness, normal capillary refill Back: normal inspection, no CVA tenderness Neurologic/Psychiatric: no motor/sensory deficits, alert, normal mood/affect Skin: normal color, warm/dry Lymphatic: no adenopathy (QUINN LYONS MD) Progress/Results/Core Measures Results/Orders Lab Results Laboratory Tests Test 09/09/21 01:50 09/09/21 01:52 Range/Units Urine Color YELLOW Urine Clarity CLEAR Urine pH 5.5 5-9 Urine Specific Benson 1.025 H 1.016-1.022 Urine Protein NEGATIVE NEGATIVE Urine Glucose (UA) NEGATIVE NEGATIVE Urine Ketones NEGATIVE NEGATIVE Urine Nitrite NEGATIVE NEGATIVE Urine Bilirubin NEGATIVE NEGATIVE Urine Urobilinogen 0.2 < = 1.0 MG/DL Urine Leukocyte Esterase NEGATIVE NEGATIVE Urine RBC (Auto) NEGATIVE NEGATIVE Urine RBC NONE /HPF Urine WBC NONE /HPF Urine Squamous Epithelial Cells 0-2 /HPF Urine Crystals NONE /LPF Urine Bacteria NEGATIVE /HPF Urine Casts NONE /LPF Urine Mucus NEGATIVE /LPF Urine Culture Indicated NO Urine Opiates Screen NEGATIVE NEGATIVE Urine Oxycodone Screen NEGATIVE NEGATIVE Urine Methadone Screen NEGATIVE NEGATIVE Urine Propoxyphene Screen NEGATIVE NEGATIVE Urine Barbiturates Screen NEGATIVE NEGATIVE Ur Tricyclic Antidepressants Screen NEGATIVE NEGATIVE Urine Phencyclidine Screen NEGATIVE NEGATIVE Urine Amphetamines Screen NEGATIVE NEGATIVE Urine Methamphetamines Screen NEGATIVE NEGATIVE Urine Benzodiazepines Screen NEGATIVE NEGATIVE Urine Cocaine Screen NEGATIVE NEGATIVE Urine Cannabinoids Screen NEGATIVE NEGATIVE White Blood Count 9.9 4.3-11.0 10^3/uL Red Blood Count 4.00 L 4.30-5.52 10^6/uL Hemoglobin 13.2 L 13.3-17.7 g/dL Hematocrit 38 L 40-54 % Mean Corpuscular Volume 95 80-99 fL Mean Corpuscular Hemoglobin 33 25-34 pg Mean Corpuscular Hemoglobin Concent 35 32-36 g/dL Red Cell Distribution Width 12.7 10.0-14.5 % Platelet Count 278 130-400 10^3/uL Mean Platelet Volume 9.5 9.0-12.2 fL Immature Granulocyte % (Auto) 0 % Neutrophils (%) (Auto) 57 42-75 % Lymphocytes (%) (Auto) 31 12-44 % Monocytes (%) (Auto) 8 0-12 % Eosinophils (%) (Auto) 3 0-10 % Basophils (%) (Auto) 1 0-10 % Neutrophils # (Auto) 5.6 1.8-7.8 10^3/uL Lymphocytes # (Auto) 3.1 1.0-4.0 10^3/uL Monocytes # (Auto) 0.8 0.0-1.0 10^3/uL Eosinophils # (Auto) 0.3 0.0-0.3 10^3/uL Basophils # (Auto) 0.1 0.0-0.1 10^3/uL Immature Granulocyte # (Auto) 0.0 0.0-0.1 10^3/uL Prothrombin Time 12.9 12.2-14.7 SEC INR Comment 0.9 0.8-1.4 Sodium Level 139 135-145 MMOL/L Potassium Level 4.6 3.6-5.0 MMOL/L Chloride Level 108 H 98-107 MMOL/L Carbon Dioxide Level 21 21-32 MMOL/L Anion Gap 10 5-14 MMOL/L Blood Urea Nitrogen 17 7-18 MG/DL Creatinine 0.87 0.60-1.30 MG/DL Estimat Glomerular Filtration Rate 109 BUN/Creatinine Ratio 20 Glucose Level 104 70-105 MG/DL Calcium Level 9.0 8.5-10.1 MG/DL Corrected Calcium 8.9 8.5-10.1 MG/DL Total Bilirubin 0.3 0.1-1.0 MG/DL Aspartate Amino Transf (AST/SGOT) 36 H 5-34 U/L Alanine Aminotransferase (ALT/SGPT) 26 0-55 U/L Alkaline Phosphatase 76 40-136 U/L Total Protein 6.9 6.4-8.2 GM/DL Albumin 4.1 3.2-4.5 GM/DL Lipase 26 8-78 U/L Serum Alcohol < 10 <10 MG/DL (LAURE MENDEZ MD) Medications Given in ED Current Medications Medications Dose Ordered Sig/Sujatha Route Start Time Stop Time Status Last Admin Dose Admin Al Hydrox/Mg Hydrox/Simethicone 30 ml ONCE ONCE PO 09/09/21 02:00 09/09/21 02:01 DC 09/09/21 01:59 30 ML Iohexol 100 ml ONCE ONCE IV 09/09/21 02:30 09/09/21 02:39 DC 09/09/21 02:33 100 ML Ketorolac Tromethamine 15 mg ONCE ONCE IVP 09/09/21 02:00 09/09/21 02:01 DC 09/09/21 02:00 15 MG Lidocaine HCl 15 ml ONCE ONCE PO 09/09/21 02:00 09/09/21 02:01 DC 09/09/21 01:59 15 ML Sodium Chloride 100 ml ONCE ONCE IV 09/09/21 02:30 09/09/21 02:39 DC 09/09/21 02:33 80 ML (LAURE MENDEZ MD) Vital Signs/I&O 09/09/21 01:40 Temp 36.6 Pulse 81 Resp 16 B/P (MAP) 111/84 (93) Pulse Ox 97 O2 Delivery Room Air (LAURE MENDEZ MD) Progress Progress Note : Progress Note 45-year-old male with above history coming in due to right upper quadrant abdominal pain. ABCs were intact and vitals are stable on presentation. Physical exam with right upper quadrant tenderness that is mild with no signs of peritonitis. An IV was placed and basic labs were obtained including normal LFTs, normal lipase, urinalysis without evidence of infection, UDS negative, et hanol level negative. CT abdomen pelvis without any acute findings that would be consistent for his pain. He was given a GI cocktail with near complete resolution of his symptoms. I believe he is stable for discharge with outpatient follow-up. He was sent home with strict return precautions. (QUINN LYONS MD) Progress Note : Time: 08:08 Progress Note I assumed care of this patient at shift change. CT report was pending at that time. CT report has since been reviewed. There were no significant abnormalities identified to explain his pain. Pain completely resolved with GI cocktail, and patient was sleeping upon reentry to the room. On repeat examination he has no tenderness to the abdomen. Bowel sounds are normal. No distention noted. Heart regular rate and rhythm without murmur. Lungs clear to auscultation bilaterally. He is alert and oriented. Explained findings and recommended course of treatment for possible esophagitis, gastritis, or duodenitis. See discharge instructions for further discussion. (LAURE MENDEZ MD) Diagnostic Imaging Diagonstic Imaging: CT Plain Films/CT/US/NM/MRI: abdomen, pelvis Comments CT abdomen pelvis viewed by me and report reviewed. See report below: NAME: RUBI VILLAGOMEZ [facility] REC#: [id number] PT STATUS: REG ER : 1975 PHYSICIAN: QUINN LYONS MD ADMIT DATE: 09/09/21/ER Draft Date of Exam:09/09/21 CT ABDOMEN/PELVIS W PROCEDURE: CT abdomen and pelvis with contrast. TECHNIQUE: Multiple contiguous axial images were obtained through the abdomen and pelvis after administration of intravenous contrast. Auto Exposure Controls were utilized during the CT exam to meet ALARA standards for radiation dose reduction. All CT scans use one or more of the following dose optimizing techniques: automated exposure control, MA and/or KvP adjustment based on patient size and exam type or iterative reconstruction. INDICATION: Right-sided abdominal pain. COMPARISON: 09/09/2017 chest, abdomen and pelvis CT with IV contrast. FINDINGS: The lung bases are clear. Mild colonic diverticulosis without evidence of active diverticulitis. The liver, gallbladder, pancreas, spleen, adrenals, kidneys, collecting systems, bladder and appendix are negative. No free intraperitoneal air or fluid. No lymphadenopathy. No evidence of bowel obstruction. No acute osseous findings. IMPRESSION: 1. No acute CT findings in the abdomen or pelvis. 2. Mild colonic diverticulosis without evidence of active diverticulitis. Dictated on workstation # [id number] Dict: 09/09/2142 Trans: 09/09/2147 [id number] Interpreted by: DONELL LEZAMA MD (LAURE MENDEZ MD) Departure Impression Primary Impression: RUQ pain Disposition: HOME, SELF-CARE Condition: Stable Departure-Patient Inst. Referrals: RENETTA WADSWORTH MD [facility] [place] Primary Care Physician INGRID LADD MD,JERONIMO LUQUE MD, CHAD C MD SULLIVAN, WILLIAM J DO Patient Instructions: Abdominal Pain, Adult ED Add. Discharge Instructions: Your labs and CT of your abdomen looked good. We will start you on an antacid medicine to see if that helps. Continue this antacid medication for a minimum of 2 full weeks. Follow-up with your regular doctor if things persist and are not improving within 1 to 2 weeks. If you do not have a doctor to follow-up with, you can reference the list of providers below. Today start with a noncarbonated clear liquid diet and gradually advance your diet with small quantities of bland food as tolerated. Avoid the following: Eating large meals, eating close to bedtime, caffeine, chocolate, carbonation, citrus fruits and juices, tomato products, mints, alcohol, tobacco products including smoking, NSAID medications such as ibuprofen or naproxen, fatty/greasy foods, or anything else you know irritates your stomach. Return to the emergency room if you have worsening symptoms despite following these instructions. Scripts Famotidine (Pepcid) 20 Mg Tablet 20 MG PO DAILY for 30 Days, #30 TAB Prov: QUINN LYONS MD 09/09/21 Work/School Note: Work Release Form Date Seen in the Emergency Department: Sep 09, 2021 Return to Work: Sep 10, 2021 Restrictions: No Restrictions QUINN LYONS MD Sep 09, 2021 01:55 LAURE MENDEZ MD Sep 09, 2021 08:06
[2021-09-09] MEDS ORDERED: FAMOTIDINE 20 MG (PEPCID) TABLET ONE (01:56)
[2021-09-09] MEDS ORDERED: LIDOCAINE 2% VISCOUS 15 ML UDC ONE (01:56)
[2021-09-09] MEDS ORDERED: KETOROLAC 30 MG/ML VIAL ONE (01:56)
[2021-09-09] MEDS ORDERED: ANTACID SUSP 30 ML UDC (MYLANTA) ONE (01:56)
[2021-09-09] MEDS ORDERED: ANTACID SUSP 30 ML UDC (MYLANTA) PO ONE (02:00)
[2021-09-09] MEDS ORDERED: LIDOCAINE 2% VISCOUS 15 ML UDC PO ONE (02:00)
[2021-09-09] MEDS ORDERED: KETOROLAC 30 MG/ML VIAL IVP ONE (02:00)
[2021-09-09 02:03] LABS: BASOPHILS # (AUTO) 0.1 10^3/uL (0.0-0.1); BASOPHILS % (AUTO) 1 % (0-10); EOSINOPHILS # (AUTO) 0.3 10^3/uL (0.0-0.3); EOSINOPHILS % (AUTO) 3 % (0-10); HEMATOCRIT 38 % (40-54); HEMOGLOBIN 13.2 g/dL (13.3-17.7); LYMPHOCYTES # (AUTO) 3.1 10^3/uL (1.0-4.0); LYMPHOCYTES % (AUTO) 31 % (12-44); MEAN CORPUSCULAR HEMOGLOBIN 33 pg (25-34); MEAN CORPUSCULAR HGB CONC 35 g/dL (32-36); MEAN CORPUSCULAR VOLUME 95 fL (80-99); MEAN PLATELET VOLUME 9.5 fL (9.0-12.2); MONOCYTES # (AUTO) 0.8 10^3/uL (0.0-1.0); MONOCYTES % (AUTO) 8 % (0-12); NEUTROPHILS # (AUTO) 5.6 10^3/uL (1.8-7.8); NEUTROPHILS % (AUTO) 57 % (42-75); PLATELET COUNT 278 10^3/uL (130-400); WHITE BLOOD COUNT 9.9 10^3/uL (4.3-11.0)
[2021-09-09 02:06] LABS: BACTERIA,URINE NEGATIVE /HPF; SQUAMOUS EPITHELIAL CELL,UR 0-2 /HPF
[2021-09-09 02:10] LABS: INR 0.9 (0.8-1.4); PROTHROMBIN TIME PATIENT 12.9 SEC (12.2-14.7)
[2021-09-09 02:11] LABS: ALBUMIN 4.1 GM/DL (3.2-4.5); CHLORIDE 108 MMOL/L (98-107); POTASSIUM 4.6 MMOL/L (3.6-5.0); SODIUM 139 MMOL/L (135-145)
[2021-09-09 02:13] LABS: GLUCOSE 104 MG/DL (70-105)
[2021-09-09 02:14] LABS: CARBON DIOXIDE 21 MMOL/L (21-32); TOTAL PROTEIN 6.9 GM/DL (6.4-8.2)
[2021-09-09 02:15] LABS: BILIRUBIN,TOTAL 0.3 MG/DL (0.1-1.0)
[2021-09-09 02:17] LABS: ALKALINE PHOSPHATASE 76 U/L (40-136); CREATININE SERUM 0.87 MG/DL (0.60-1.30); GFR ESTIMATED 109
[2021-09-09 02:18] LABS: BUN/CREATININE RATIO 20
[2021-09-09 02:20] LABS: AMPHETAMINE SCREEN, URINE NEGATIVE (NEGATIVE); BARBITURATE SCREEN URINE NEGATIVE (NEGATIVE); BENZODIAZEPINES SCREEN URINE NEGATIVE (NEGATIVE); CANNABINOID SCREEN, URINE NEGATIVE (NEGATIVE); COCAINE SCREEN URINE NEGATIVE (NEGATIVE); METHADONE STAT NEGATIVE (NEGATIVE); OPIATE SCREEN URINE NEGATIVE (NEGATIVE); OXYCODONE STAT NEGATIVE (NEGATIVE); PROPOXYPHENE STAT NEGATIVE (NEGATIVE); TRICYCLIC ANTIDEPRESSANTS SCRE NEGATIVE (NEGATIVE)
[2021-09-09 02:20] LABS: ALANINE AMINOTRANSFERASE 26 U/L (0-55)
[2021-09-09 02:21] LABS: LIPASE 26 U/L (8-78)
[2021-09-09] MEDS ORDERED: IOHEXOL 350 MG/ML 100 ML (OMNIPAQUE 350) VIAL IV ONE (02:30)
[2021-09-09] MEDS ORDERED: NS 100 ML (IVPB) BAG IV ONE (02:30)
[2021-09-09] MEDS ORDERED: HOLD METFORMIN - RECEIVED CONTRAST 20 ML VIAL IV SCH (02:30)
[2021-09-09] MEDS ORDERED: FAMO-119 PO (03:02)
--- NOTE | 2021-09-09 06:49 | Diagnostic Imaging Report ---
PROCEDURE: CT abdomen and pelvis with contrast. TECHNIQUE: Multiple contiguous axial images were obtained through the abdomen and pelvis after administration of intravenous contrast. Auto Exposure Controls were utilized during the CT exam to meet ALARA standards for radiation dose reduction. All CT scans use one or more of the following dose optimizing techniques: automated exposure control, MA and/or KvP adjustment based on patient size and exam type or iterative reconstruction. INDICATION: Right-sided abdominal pain. COMPARISON: 09/09/2017 chest, abdomen and pelvis CT with IV contrast. FINDINGS: The lung bases are clear. Mild colonic diverticulosis without evidence of active diverticulitis. The liver, gallbladder, pancreas, spleen, adrenals, kidneys, collecting systems, bladder and appendix are negative. No free intraperitoneal air or fluid. No lymphadenopathy. No evidence of bowel obstruction. No acute osseous findings. IMPRESSION: 1. No acute CT findings in the abdomen or pelvis. 2. Mild colonic diverticulosis without evidence of active diverticulitis. Dictated by: Dictated on workstation # [id number]
[2021-09-09 08:18] VITALS: BP 111/85
== END 2021-09-09 08:18 | disposition home or self-care (01) ==
LOC: EDUNIT# 01:40 → ER 01:41
DX: R10.11 Right upper quadrant pain (principal); Z86.718 Personal history of other venous thrombosis and embolism; Z79.01 Long term (current) use of anticoagulants
CPT/HCPCS: 74177; 80053; 80306; 81000; 83690; 85025; 85610; 99284; G0480; 36415; 80320

== ENCOUNTER 2021-10-07 18:34 | Emergency (ER) | payer MEDICARE, MEDICAID ==
[~2021-10-07] VITALS: Ht 177.8 cm; Wt 96.6 kg
[~2021-10-07 18:34] MED LIST changes: +FAMO-119 PO
[2021-10-07] MEDS ORDERED: ONDANSETRON 4 MG/2 ML (SDV) Z0FRAN IV PRN (18:45)
[2021-10-07] MEDS ORDERED: LACTATED RINGERS 1,000 ML IV ONE (18:45)
[2021-10-07] MEDS ORDERED: ACETAMINOPHEN 500 MG TAB (TYLENOL) PO PRN (18:45)
[2021-10-07 18:54] LABS: BASOPHILS # (AUTO) 0.1 10^3/uL (0.0-0.1); BASOPHILS % (AUTO) 1 % (0-10); EOSINOPHILS # (AUTO) 0.3 10^3/uL (0.0-0.3); EOSINOPHILS % (AUTO) 3 % (0-10); HEMATOCRIT 41 % (40-54); HEMOGLOBIN 14.1 g/dL (13.3-17.7); LYMPHOCYTES # (AUTO) 1.8 10^3/uL (1.0-4.0); LYMPHOCYTES % (AUTO) 22 % (12-44); MEAN CORPUSCULAR HEMOGLOBIN 32 pg (25-34); MEAN CORPUSCULAR HGB CONC 34 g/dL (32-36); MEAN CORPUSCULAR VOLUME 93 fL (80-99); MEAN PLATELET VOLUME 9.9 fL (9.0-12.2); MONOCYTES # (AUTO) 0.7 10^3/uL (0.0-1.0); MONOCYTES % (AUTO) 8 % (0-12); NEUTROPHILS # (AUTO) 5.7 10^3/uL (1.8-7.8); NEUTROPHILS % (AUTO) 66 % (42-75); PLATELET COUNT 291 10^3/uL (130-400); WHITE BLOOD COUNT 8.5 10^3/uL (4.3-11.0)
--- NOTE | 2021-10-07 18:59 | ED General ---
General Chief Complaint: Fever-Adult/Adol Stated Complaint: FEVER Source of Information: Patient (VERY LIMITED HISTORIAN ABOUT PMH--PT HAS HISTORY OF MILD MR, PER OLD RECORDS), Old Records (PMH IS FROM OLD RECORDS) History of Present Illness Date Seen by Provider: Oct 07, 2021 Time Seen by Provider: 18:40 Initial Comments PT ARRIVES VIA EMS FROM HOME--PT LIVES WITH SISTER STATES HE BEGAN FEELING SICK YESTERDAY HAS HAD TEMP OF 100.4 TODAY TOOK IBUPROFEN PRIOR TO ARRIVAL C/O DIFFUSE UPPER ABDOMINAL PAIN BEGAN HAVING NAUSEA AND VOMITING YESTERDAY--VOMITED X 2 TODAY AND VOMITED X 2 YESTERDAY--THINKS IT HAD SOME BLOOD IN IT NO DIARRHEA. HAD NORMAL BM YESTERDAY PT IS ABLE TO EAT AND DRINK, AND IS VOIDING A NORMAL AMOUNT NO COUGH NO SHORTNESS OF BREATH--STATES HE ALWAYS FEELS A LITTLE SHORT OF BREATH, BUT NOT RIGHT NOW PT HAS HAD COVID VACCINE X 2--LAST ONE AT LEAST A YEAR AGO NO KNOWN SICK CONTACTS NO PRIOR ABDOMINAL SURGERIES OR GI PROBLEMS PT STATES HE IS ON AN "MEDICINE" FOR A CHRONIC LEFT LOWER LEG INFECTION--STATES HE HAS BEEN ON THE ANTIBIOTIC " FOR A LONG TIME" --NO PROBLEMS WITH LEG AT THIS TIME. STATES THE ONLY OTHER MEDICATION HE TAKES IS THYROID MEDICATION ON REVIEW OF OLD RECORDS, PT WAS PRESCRIBED ELIQUIS 12/2020 FOR DVT--ON DIRECT QUESTIONING, PT STATES HE IS TAKING IT. PCP: RAYA RUSSELL, DR. NICOLE. ALSO GOES TO [facility] Allergies and Home Medications Allergies Uncoded Allergies: BEE AND WASPS (Allergy, Unknown, 11/04/14) POISON YASMINE AND OAK (Allergy, Unknown, 11/04/14) Patient Home Medication List Albuterol Sulfate (Proair Hfa) 1 Puff Puff, 2 PUFF IH Q4H PRN for SHORTNESS OF BREATH, (Reported) Entered as Reported by: LING GARVEY on 02/11/18 1107 Apixaban (Eliquis) 2.5 Mg Tablet, 2.5 MG PO BID Prescribed by: NAOMY BELTRÁN on 02/14/18 0839 Apixaban (Eliquis) 5 Mg Tablet, 5 MG PO BID Prescribed by: CAMELIA BRAN on 12/08/20 1459 Calcium Carbonate (Calcium) 500 Mg Tab.chew, 1,000 MG PO Q4H PRN for HEARTBURN, (Reported) Entered as Reported by: LING GARVEY on 02/11/181106 Cyclobenzaprine HCl (Cyclobenzaprine HCl) 10 Mg Tablet, 10 MG PO Q8H PRN for MUSCLE SPASMS, (Reported) Entered as Reported by: LING GARVEY on 02/11/181106 Diphenhydramine HCl (Benadryl) 25 Mg Capsule, 50 MG PO Q6H PRN for ALLERGIC REACTION, (Reported) Entered as Reported by: LING GARVEY on 02/11/181106 Famotidine (Pepcid) 20 Mg Tablet, 20 MG PO DAILY Prescribed by: QUINN LYONS on 09/09/21 0302 Levothyroxine Sodium (Levothyroxine Sodium) 100 Mcg Tablet, 100 MCG PO 2100, (Reported) Entered as Reported by: LING GARVEY on 02/11/181106 Ondansetron (Ondansetron Odt) 8 Mg Tab.rapdis, 8 MG PO Q6H Prescribed by: ALEXANDRA WEIR on 10/07/212032 Pantoprazole Sodium (Protonix) 40 Mg Tablet.dr, 40 MG PO DAILY Prescribed by: ALEXANDRA WEIR on 10/07/212032 Risperidone (Risperdal Consta) 12.5 Mg/2 Ml Disp.syrin, 12.5 MG IM EVERY 2 WE EKS, (Reported) Entered as Reported by: LING GARVEY on 02/11/18 1131 Sertraline HCl (Sertraline HCl) 100 Mg Tablet, 100 MG PO HS, (Reported) Entered as Reported by: LING GARVEY on 02/11/181106 Simvastatin (Simvastatin) 10 Mg Tablet, 10 MG PO HS, (Reported) Entered as Reported by: LING GARVEY on 02/11/18 115 Tetrahydrozoline HCl (Visine) 15 Ml Drops, 2 DROP OU Q6H PRN for EYE REDNESS, (Reported) Entered as Reported by: LING GARVEY on 02/11/181106 Review of Systems Review of Systems Constitutional: fever EENTM: no symptoms reported Respiratory: see HPI Cardiovascular: no symptoms reported Gastrointestinal: see HPI, abdominal pain, hematemesis, nausea, vomiting Genitourinary: no symptoms reported Musculoskeletal: no symptoms reported Skin: no symptoms reported Psychiatric/Neurological: No Symptoms Reported Hematologic/Lymphatic: No Symptoms Reported Immunological/Allergic: no symptoms reported Past Focnwus-Eclkrj-Mavaak Hx Patient Social History Tobacco Use?: Yes Tobacco type used: Cigarettes Smoking Status: Current Everyday Smoker Substance use?: No (DENIES) Alcohol Use?: Yes Immunizations Up To Date Tetanus Booster (TDap): Unknown First/Initial COVID19 Vaccinat: 2020 Second COVID19 Vaccination Abdulkadir: 2020 Third COVID19 Vaccination Date: 2020 Seasonal Allergies Seasonal Allergies: Yes Past Medical History Surgery/Hospitalization HX: left total knee, chronic chest pain, anxiety, personality disorder, mild MR, high cholesterol, hypothryoidism Surgeries: Yes (LEFT TOTAL KNEE REPLACEMENT) Joint Replacement, Orthopedic Respiratory: Yes Asthma Cardiac: Yes ("CHRONIC CHEST PAIN"; DVT LEFT LEG 12/2020) Deep Vein Thrombosis, High Cholesterol Neurological: Yes (MILD MR) Genitourinary: No Gastrointestinal: No Musculoskeletal: Yes (LEFT KNEE REPLACEMENT; RIGHT KNEE SCOPE) Endocrine: Yes Hypothyroidsim HEENT: Yes (GLASSES) Loss of Vision: Bilateral Cancer: No 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) Anxiety, Personality Disorder Integumentary: Yes ( CELLULITIS LEFT LEG) Blood Disorders: No Family Medical History SOCIAL HISTORY: -SMOKES 1 PPD -ETOH--QUIT DRINKING A YEAR AGO, PER PT 10/07/21 -DENIES DRUG USE PAST SURGICAL HISTORY: -LEFT KNEE SURGERY -RIGHT KNEE SCOPE 02/[address] QUINTEROS Physical Exam Vital Signs Vital Signs - First Documented 10/07/21 18:36 Temp 37.1 Pulse 87 Resp 16 B/P (MAP) 117/79 (92) O2 Delivery Room Air Capillary Refill : Height, Weight, BMI Height: 5'10.00" Weight: 238lbs. 0.0oz. [id number]; 30.00 BMI Method:Stated General Appearance: No Apparent Distress, WD/WN, Other (FLAT AFFECT) HEENT: PERRL/EOMI, TMs Normal, Normal ENT Inspection, Pharynx Normal, Moist Mucous Membranes Neck: Full Range of Motion, Normal Inspection, Non Tender, Supple Respiratory: Normal Breath Sounds, No Accessory Muscle Use, No Respiratory Distress Cardiovascular: Regular Rate, Rhythm, No JVD, No Murmur, Normal Peripheral Pulses Gastrointestinal: Normal Bowel Sounds, No Organomegaly, No Pulsatile Mass, Soft, Tenderness (MILD EPIGASTRIC TENDERNESS) Extremity: Normal Capillary Refill, Non Tender, No Calf Tenderness, Pedal Edema (TRACE EDEMA TO LEFT LOWER LEG; 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 CHANGES) Neurologic/Psychiatric: Alert, Oriented x3 (BUT VERY POOR MEMORY), No Motor/Sensory Deficits, 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 II-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 Norm as Tested, Other (VERY FLAT AFFECT) Skin: Normal Color (PT IS VERY TANNED), Warm/Dry; No Rash; Tattoos/Piercings (TATTOOS) Focused Exam Sepsis Stage: Ruled Out Reason for ruling out sepsis: DOES NOT MEET CRITERIA Possible Source: Unknown Lactate Level 10/07/21 18:41: Lactic Acid Level 1.19 Time of Focused Exam: 20:30 Respiratory: Normal Breath Sounds, No Accessory Muscle Use, No Respiratory Distress Cardiovascular: Regular Rate, Rhythm, No Edema, No JVD Capillary Refill: Less Than 3 Seconds Skin: normal color, warm/dry Lactic Acid Level Laboratory Tests Test 10/07/21 18:41 Lactic Acid Level 1.19 MMOL/L (0.50-2.00) Within 3hrs of presentation: Admin fluids, Blood cultures prior to ABX's, Focus exam, Lactate level Progress/Results/Core Measures Suspected Sepsis SIRS Temperature: Pulse: Respiratory Rate: Laboratory Tests 10/07/21 18:41: White Blood Count 8.5 Blood Pressure / Mean: 10/07/21 18:41: Lactic Acid Level 1.19 Laboratory Tests 10/07/21 18:41: Creatinine 0.85, INR Comment 1.0, Platelet Count 291, Total Bilirubin 0.5 Results/Orders Lab Results Laboratory Tests Test 10/07/21 18:41 10/07/21 18:46 10/07/21 19:57 Range/Units White Blood Count 8.5 4.3-11.0 10^3/uL Red Blood Count 4.41 4.30-5.52 10^6/uL Hemoglobin 14.1 13.3-17.7 g/dL Hematocrit 41 40-54 % Mean Corpuscular Volume 93 80-99 fL Mean Corpuscular Hemoglobin 32 25-34 pg Mean Corpuscular Hemoglobin Concent 34 32-36 g/dL Red Cell Distribution Width 12.3 10.0-14.5 % Platelet Count 291 130-400 10^3/uL Mean Platelet Volume 9.9 9.0-12.2 fL Immature Granulocyte % (Auto) 0 % Neutrophils (%) (Auto) 66 42-75 % Lymphocytes (%) (Auto) 22 12-44 % Monocytes (%) (Auto) 8 0-12 % Eosinophils (%) (Auto) 3 0-10 % Basophils (%) (Auto) 1 0-10 % Neutrophils # (Auto) 5.7 1.8-7.8 10^3/uL Lymphocytes # (Auto) 1.8 1.0-4.0 10^3/uL Monocytes # (Auto) 0.7 0.0-1.0 10^3/uL Eosinophils # (Auto) 0.3 0.0-0.3 10^3/uL Basophils # (Auto) 0.1 0.0-0.1 10^3/uL Immature Granulocyte # (Auto) 0.0 0.0-0.1 10^3/uL Erythrocyte Sedimentation Rate 18 H 0-15 MM/HR Prothrombin Time 13.4 12.2-14.7 SEC INR Comment 1.0 0.8-1.4 Activated Partial Thromboplast Time 35 24-35 SEC Sodium Level 137 135-145 MMOL/L Potassium Level 4.3 3.6-5.0 MMOL/L Chloride Level 105 98-107 MMOL/L Carbon Dioxide Level 19 L 21-32 MMOL/L Anion Gap 13 5-14 MMOL/L Blood Urea Nitrogen 10 7-18 MG/DL Creatinine 0.85 0.60-1.30 MG/DL Estimat Glomerular Filtration Rate 110 BUN/Creatinine Ratio 12 Glucose Level 97 70-105 MG/DL Lactic Acid Level 1.19 0.50-2.00 MMOL/L Calcium Level 9.1 8.5-10.1 MG/DL Corrected Calcium 9.1 8.5-10.1 MG/DL Magnesium Level 2.0 1.6-2.4 MG/DL Total Bilirubin 0.5 0.1-1.0 MG/DL Aspartate Amino Transf (AST/SGOT) 19 5-34 U/L Alanine Aminotransferase (ALT/SGPT) 19 0-55 U/L Alkaline Phosphatase 90 40-136 U/L C-Reactive Protein High Sensitivity 2.06 H 0.00-0.50 MG/DL Total Protein 7.2 6.4-8.2 GM/DL Albumin 4.0 3.2-4.5 GM/DL Amylase Level 33 25-125 U/L Lipase 15 8-78 U/L Procalcitonin 0.11 H <0.10 NG/ML Serum Alcohol 11 H <10 MG/DL Influenza Type A (RT-PCR) Not Detected Not Detecte Influenza Type B (RT-PCR) Not Detected Not Detecte SARS-CoV-2 RNA (RT-PCR) Not Detected Not Detecte Urine Color YELLOW Urine Clarity CLEAR Urine pH 7.5 5-9 Urine Specific Dillard 1.010 L 1.016-1.022 Urine Protein NEGATIVE NEGATIVE Urine Glucose (UA) NEGATIVE NEGATIVE Urine Ketones NEGATIVE NEGATIVE Urine Nitrite NEGATIVE NEGATIVE Urine Bilirubin NEGATIVE NEGATIVE Urine Urobilinogen 0.2 < = 1.0 MG/DL Urine Leukocyte Esterase NEGATIVE NEGATIVE Urine RBC (Auto) NEGATIVE NEGATIVE Urine RBC NONE /HPF Urine WBC NONE /HPF Urine Squamous Epithelial Cells RARE /HPF Urine Crystals NONE /LPF Urine Bacteria TRACE /HPF Urine Casts NONE /LPF Urine Mucus SMALL H /LPF Urine Culture Indicated CULTURE PENDING Urine Opiates Screen NEGATIVE NEGATIVE Urine Oxycodone Screen NEGATIVE NEGATIVE Urine Methadone Screen NEGATIVE NEGATIVE Urine Propoxyphene Screen NEGATIVE NEGATIVE Urine Barbiturates Screen NEGATIVE NEGATIVE Ur Tricyclic Antidepressants Screen NEGATIVE NEGATIVE Urine Phencyclidine Screen NEGATIVE NEGATIVE Urine Amphetamines Screen NEGATIVE NEGATIVE Urine Methamphetamines Screen NEGATIVE NEGATIVE Urine Benzodiazepines Screen NEGATIVE NEGATIVE Urine Cocaine Screen NEGATIVE NEGATIVE Urine Cannabinoids Screen NEGATIVE NEGATIVE My Orders Orders - ALEXANDRA WEIR DO Ed Iv/Invasive Line Start (10/07/21 18:37) Monitor-Rhythm Ecg Trace Only (10/07/21 18:37) Cbc With Automated Diff (10/07/21 18:37) Comprehensive Metabolic Panel (10/07/21 18:37) Procalcitonin (Pct) (10/07/21 18:37) Hs C Reactive Protein (10/07/21 18:37) Erythrocyte Sedimentation Rate (10/07/21 18:37) Blood Culture (10/07/21 18:37) Covid 19 Inhouse Test (10/07/21 18:37) Urinalysis (10/07/21 18:37) Urine Culture (10/07/21 18:37) Chest 1 View, Ap/Pa Only (10/07/21 18:37) Acetaminophen Tablet (Tylenol Tablet) (10/07/21 18:45) Ed Iv/Invasive Line Start (10/07/21 18:37) Vital Signs Adult Sepsis Patie Q15M (10/07/21 18:37) Ondansetron Injection (Zofran Injectio (10/07/21 18:45) Remove Rings In Anticipation O (10/07/21 18:37) Lactic Acid Analyzer (10/07/21 18:37) Lactated Ringers (Lr 1000 Ml Iv Solution (10/07/21 18:45) Influenza A And B By Pcr (10/07/21 18:37) Isolation Central Supply Req (10/07/21 18:37) Alcohol (10/07/21 18:37) Amylase (10/07/21 18:37) Drug Screen Stat (Urine) (10/07/21 18:37) Lipase (10/07/21 18:37) Magnesium (10/07/21 18:37) Protime With Inr (10/07/21 18:37) Partial Thromboplastin Time (10/07/21 18:37) Pantoprazole Injection (Protonix Injecti (10/07/21 19:00) Ct Annmarie Chest/Noang Abd-Pelv W (10/07/21 19:20) Iohexol Injection (Omnipaque 350 Mg/Ml 1 (10/07/21 19:30) Received Contrast (Hold Metformin- Contr (10/07/21 19:30) Ns (Ivpb) (Sodium Chloride 0.9% Ivpb Bag (10/07/21 19:30) Rx-Ondansetron Po (Rx-Zofran Po) (10/07/21 20:38) Medications Given in ED Current Medications Medications Dose Ordered Sig/Sujatha Route Start Time Stop Time Status Last Admin Dose Admin Acetaminophen 1,000 mg ONCE PRN PO 10/07/21 18:45 10/07/21 19:06 DC 10/07/21 19:05 1,000 MG Iohexol 100 ml ONCE ONCE IV 10/07/21 19:30 10/07/21 19:31 DC 10/07/21 19:41 100 ML Lactated Ringer's 1,000 ml @ 0 mls/hr Q0M ONCE IV 10/07/21 18:45 10/07/21 18:46 DC 10/07/21 19:05 999 MLS/HR Ondansetron HCl 4 mg PRN PRN IV 10/07/21 18:45 10/07/21 19:06 DC 10/07/21 19:05 4 MG Pantoprazole 40 mg ONCE ONCE IV 10/07/21 19:00 10/07/21 19:01 DC 10/07/21 19:05 40 MG Sodium Chloride 100 ml ONCE ONCE IV 10/07/21 19:30 10/07/21 19:31 DC 10/07/21 19:41 80 ML Vital Signs/I&O 10/07/21 10/07/21 18:36 18:36 Temp 37.1 Pulse 87 Resp 16 B/P (MAP) 117/79 (92) O2 Delivery Room Air Room Air Capillary Refill : Progress Note : Progress Note PLACED IN ISOLATION ROOM PPE WORN AT ALL TIMES COVID TESTING DONE SEPSIS PROTOCOL INITIATED. GIVEN: -IV FLUIDS -ZOFRAN -PROTONIX NO FEVER NO COUGH NO DYSPNEA NO HYPOXIA NO SYMPTOMS FOR REMAINDER OF ER STAY PT TEXTING/PLAYING ON PHONE FOR ENTIRE ER STAY Diagnostic Imaging Comments CXR--PER RADIOLOGIST REPORT AT 1935 FINDINGS: Single frontal view of the chest demonstrates normal heart size and pulmonary vascularity. The lungs are well aerated and clear. No large pleural effusion or pneumothorax is seen. The visualized osseous structures show no acute abnormalities. IMPRESSION: No acute cardiopulmonary process. CT CHEST ANGIOGRAM/ABDOMEN-PELVIS--PER RADIOLOGIST REPORT AT 2029 COMPARISON: 09/10/2019. FINDINGS: CTA CHEST: No abnormal intraluminal filling defect is seen to the 1st subsegmental division of the pulmonary arteries. Thoracic aorta is normal in course and caliber. By NASCET criteria, there is no focal significant stenosis. There is no dissection or aneurysm. Heart size is within normal limits. There is no large pericardial effusion. No pathologically enlarged or morphologically abnormal adenopathy is seen within the mediastinum, yolanda or axilla. Lungs are clear. There is no focal consolidation, large effusion or pneumothorax. 6 mm micronodular density is noted associated with the lateral margins of the major fissure on the right (image 77, series 4). This is stable compared to prior exam. No new suspicious pulmonary nodule or mass is seen. Osseous structures show no acute abnormalities. No lytic or blastic bony lesions are seen. CT ABDOMEN: There is colonic diverticulosis, but no CT evidence of acute diverticulitis. Normal appendix is identified. Small bowel loops are nondistended. The kidneys, adrenal glands, spleen, pancreas, and liver have a normal CT appearance. There is no loculated fluid collection free fluid or free air within the abdomen. No abnormal mesenteric or retroperitoneal adenopathy is seen. Osseous structures show no acute abnormalities. CT PELVIS: Urinary bladder is unopacified. No calculi are seen within the urinary bladder. There is no loculated fluid collection, free fluid or free air. No abnormal lymph nodes are identified. Osseous structures show no acute abnormalities. IMPRESSION: 1. No acute pulmonary embolus. 2. No acute cardiopulmonary process. 3. Small micronodule associated with the major fissure on the right. While this may be on the basis of intrafissural lymph node, if patient is in a high-risk category, such as history of smoking, one-year follow-up is recommended to ensure stability. 4. No acute abnormality is seen within the abdomen or pelvis. Reviewed: Reviewed by Me Departure Impression Primary Impression: Gastroenteritis Disposition: HOME, SELF-CARE Condition: Improved Departure-Patient Inst. Decision time for Depature: 20:31 Referrals: [facility] (PCP/Family) Primary Care Physician Patient Instructions: Viral Gastroenteritis, Adult (DC) Add. Discharge Instructions: LOTS OF CLEAR LIQUIDS, SIPS AT A TIME--WATER, BROTH, JELLO, GATORADE TOMORROW IF YOU ARE BETTER, ADD BRATS DIET--BANANAS, RICE, APPLESAUCE, TOAST, SALTINES CONTINUE YOUR REGULAR MEDICATIONS PRESCRIBED FOLLOW UP WITH YOUR DR ON SATURDAY FOR FURTHER CARE, RETURN TO ER IF WORSE All discharge instructions reviewed with patient and/or family. Voiced understanding. Scripts Pantoprazole Sodium (Protonix) 40 Mg Tablet. 40 MG PO DAILY, #15 TAB Prov: ALEXANDRA WEIR DO 10/07/21 Ondansetron (Ondansetron Odt) 8 Mg Tab.rapdis 8 MG PO Q6H, #10 TAB Prov: ALEXANDRA WEIR DO 10/07/21 ALEXANDRA WEIR DO Oct 07, 2021 18:59
[2021-10-07] MEDS ORDERED: PANTOPRAZOLE 40 MG (PROTONIX) VIAL IV ONE (19:00)
[2021-10-07 19:06] LABS: PROTHROMBIN TIME PATIENT 13.4 SEC (12.2-14.7)
[2021-10-07 19:18] LABS: ERYTHROCYTE SEDIMENTATION RATE 18 MM/HR (0-15)
[2021-10-07 19:19] LABS: BILIRUBIN,TOTAL 0.5 MG/DL (0.1-1.0); CALCIUM 9.1 MG/DL (8.5-10.1); CREATININE SERUM 0.85 MG/DL (0.60-1.30); POTASSIUM 4.3 MMOL/L (3.6-5.0); TOTAL PROTEIN 7.2 GM/DL (6.4-8.2)
[2021-10-07] MEDS ORDERED: NS 100 ML (IVPB) BAG IV ONE (19:30)
[2021-10-07] MEDS ORDERED: IOHEXOL 350 MG/ML 100 ML (OMNIPAQUE 350) VIAL IV ONE (19:30)
[2021-10-07] MEDS ORDERED: HOLD METFORMIN - RECEIVED CONTRAST 20 ML VIAL IV SCH (19:30)
--- NOTE | 2021-10-07 19:32 | Diagnostic Imaging Report ---
INDICATION: Fever. COMPARISON: 08/08/2021. FINDINGS: Single frontal view of the chest demonstrates normal heart size and pulmonary vascularity. The lungs are well aerated and clear. No large pleural effusion or pneumothorax is seen. The visualized osseous structures show no acute abnormalities. IMPRESSION: No acute cardiopulmonary process. Dictated by: Dictated on workstation # [id number]
[2021-10-07 20:06] LABS: BILIRUBIN,URINE NEGATIVE (NEGATIVE); CLARITY,URINE CLEAR; COLOR,URINE YELLOW; GLUCOSE, URINE (UA) NEGATIVE (NEGATIVE); KETONES,URINE NEGATIVE (NEGATIVE); LEUKOCYTE ESTERASE ,URINE NEGATIVE (NEGATIVE); NITRITE,URINE NEGATIVE (NEGATIVE); PH,URINE 7.5 (5-9); PROTEIN,URINE NEGATIVE (NEGATIVE)
--- NOTE | 2021-10-07 20:22 | Diagnostic Imaging Report ---
INDICATION: Fever, N/V/ABD pain, dyspnea TECHNIQUE: CTA chest, abdomen and pelvis. Thin axial sections through the chest, abdomen and pelvis were obtained following intravenous contrast bolus. Multiplanar MIP images were reconstructed and reviewed. All CT scans use one or more of the following dose optimizing techniques: automated exposure control, MA and/or KvP adjustment based on patient size and exam type or iterative reconstruction. INDICATION: Fever. Abdominal pain. Nausea and vomiting. COMPARISON: 09/10/2019. FINDINGS: CTA CHEST: No abnormal intraluminal filling defect is seen to the 1st subsegmental division of the pulmonary arteries. Thoracic aorta is normal in course and caliber. By NASCET criteria, there is no focal significant stenosis. There is no dissection or aneurysm. Heart size is within normal limits. There is no large pericardial effusion. No pathologically enlarged or morphologically abnormal adenopathy is seen within the mediastinum, yolanda or axilla. Lungs are clear. There is no focal consolidation, large effusion or pneumothorax. 6 mm micronodular density is noted associated with the lateral margins of the major fissure on the right (image 77, series 4). This is stable compared to prior exam. No new suspicious pulmonary nodule or mass is seen. Osseous structures show no acute abnormalities. No lytic or blastic bony lesions are seen. CT ABDOMEN: There is colonic diverticulosis, but no CT evidence of acute diverticulitis. Normal appendix is identified. Small bowel loops are nondistended. The kidneys, adrenal glands, spleen, pancreas, and liver have a normal CT appearance. There is no loculated fluid collection free fluid or free air within the abdomen. No abnormal mesenteric or retroperitoneal adenopathy is seen. Osseous structures show no acute abnormalities. CT PELVIS: Urinary bladder is unopacified. No calculi are seen within the urinary bladder. There is no loculated fluid collection, free fluid or free air. No abnormal lymph nodes are identified. Osseous structures show no acute abnormalities. IMPRESSION: 1. No acute pulmonary embolus. 2. No acute cardiopulmonary process. 3. Small micronodule associated with the major fissure on the right. While this may be on the basis of intrafissural lymph node, if patient is in a high-risk category, such as history of smoking, one-year follow-up is recommended to ensure stability. 4. No acute abnormality is seen within the abdomen or pelvis. Dictated by: Dictated on workstation # [id number]
[2021-10-07 20:23] LABS: AMPHETAMINE SCREEN, URINE NEGATIVE (NEGATIVE); BARBITURATE SCREEN URINE NEGATIVE (NEGATIVE); BENZODIAZEPINES SCREEN URINE NEGATIVE (NEGATIVE); CANNABINOID SCREEN, URINE NEGATIVE (NEGATIVE); COCAINE SCREEN URINE NEGATIVE (NEGATIVE); METHADONE STAT NEGATIVE (NEGATIVE); OPIATE SCREEN URINE NEGATIVE (NEGATIVE); OXYCODONE STAT NEGATIVE (NEGATIVE); PROPOXYPHENE STAT NEGATIVE (NEGATIVE); TRICYCLIC ANTIDEPRESSANTS SCRE NEGATIVE (NEGATIVE)
[2021-10-07] MEDS ORDERED: ONDA8TAB13 PO (20:33)
[2021-10-07] MEDS ORDERED: PANT40TA2 PO (20:33)
[2021-10-07 20:35] LABS: BACTERIA,URINE TRACE /HPF; SQUAMOUS EPITHELIAL CELL,UR RARE /HPF
[2021-10-07] MEDS ORDERED: RX-ONDANSETRON 4 MG ODT (ZOFRAN) PPK #4 PO STA (20:38)
[2021-10-07 20:52] VITALS: BP 154/81
== END 2021-10-07 20:54 | disposition home or self-care (01) ==
LOC: EDUNIT# 18:34 → ER 18:36
DX: K52.9 Noninfective gastroenteritis and colitis, unspecified (principal); I87.8 Other specified disorders of veins; E03.9 Hypothyroidism, unspecified; Z20.822 Contact with and (suspected) exposure to COVID-19; Z86.718 Personal history of other venous thrombosis and embolism; Z79.02 Long term (current) use of antithrombotics/antiplatelets; Z79.899 Other long term (current) drug therapy; Z79.890 Hormone replacement therapy
CPT/HCPCS: 71045; 71275; 74177; 80053; 80306; 81000; 82150; 83605; 83690; 83735; 84145; 85025; 85610; 85652; 85730; 86141; 87040; 87088; 87636; 93041; 99284; G0480; 36415; 80320

== ENCOUNTER 2021-11-05 22:44 | Emergency (ER) | payer MEDICARE, MEDICAID ==
[~2021-11-05] VITALS: Ht 177 cm; Wt 100.0 kg
[~2021-11-05 22:44] MED LIST changes: +ONDA8TAB13 PO; +PANT40TA2 PO
[2021-11-05 22:54] VITALS: BP_SYST 121; BP_SYST 123; BP_SYST 93; BP_DIAS 75; BP_DIAS 77; BP_DIAS 78
[2021-11-05] MEDS ORDERED: LACTATED RINGERS 1,000 ML IV ONE (23:00)
[2021-11-05] MEDS ORDERED: ONDANSETRON 4 MG/2 ML (SDV) Z0FRAN IVP ONE (23:00)
[2021-11-05 23:11] LABS: BASOPHILS # (AUTO) 0.1 10^3/uL (0.0-0.1); BASOPHILS % (AUTO) 1 % (0-10); EOSINOPHILS # (AUTO) 0.1 10^3/uL (0.0-0.3); EOSINOPHILS % (AUTO) 1 % (0-10); HEMATOCRIT 39 % (40-54); HEMOGLOBIN 13.4 g/dL (13.3-17.7); LYMPHOCYTES # (AUTO) 1.4 10^3/uL (1.0-4.0); LYMPHOCYTES % (AUTO) 12 % (12-44); MEAN CORPUSCULAR HEMOGLOBIN 32 pg (25-34); MEAN CORPUSCULAR HGB CONC 34 g/dL (32-36); MEAN CORPUSCULAR VOLUME 92 fL (80-99); MEAN PLATELET VOLUME 9.1 fL (9.0-12.2); MONOCYTES # (AUTO) 0.6 10^3/uL (0.0-1.0); MONOCYTES % (AUTO) 5 % (0-12); NEUTROPHILS # (AUTO) 9.2 10^3/uL (1.8-7.8); NEUTROPHILS % (AUTO) 80 % (42-75); PLATELET COUNT 256 10^3/uL (130-400); WHITE BLOOD COUNT 11.4 10^3/uL (4.3-11.0)
[2021-11-05 23:24] LABS: BILIRUBIN,URINE NEGATIVE (NEGATIVE); CLARITY,URINE CLEAR; COLOR,URINE YELLOW; GLUCOSE, URINE (UA) NEGATIVE (NEGATIVE); KETONES,URINE NEGATIVE (NEGATIVE); LEUKOCYTE ESTERASE ,URINE NEGATIVE (NEGATIVE); NITRITE,URINE NEGATIVE (NEGATIVE); PROTEIN,URINE NEGATIVE (NEGATIVE)
[2021-11-05 23:24] LABS: ALBUMIN 4.1 GM/DL (3.2-4.5); CHLORIDE 104 MMOL/L (98-107); SODIUM 139 MMOL/L (135-145)
[2021-11-05 23:25] LABS: CALCIUM 9.4 MG/DL (8.5-10.1); PROTHROMBIN TIME PATIENT 13.1 SEC (12.2-14.7)
[2021-11-05 23:26] LABS: GLUCOSE 118 MG/DL (70-105)
[2021-11-05 23:27] LABS: CARBON DIOXIDE 24 MMOL/L (21-32)
[2021-11-05 23:28] LABS: BILIRUBIN,TOTAL 0.3 MG/DL (0.1-1.0)
[2021-11-05 23:30] LABS: ALKALINE PHOSPHATASE 79 U/L (40-136); CREATININE SERUM 0.85 MG/DL (0.60-1.30); GFR ESTIMATED 110
[2021-11-05 23:31] LABS: BUN/CREATININE RATIO 22
[2021-11-05 23:33] LABS: ALANINE AMINOTRANSFERASE 21 U/L (0-55); MAGNESIUM 1.8 MG/DL (1.6-2.4)
[2021-11-05 23:39] LABS: AMPHETAMINE SCREEN, URINE NEGATIVE (NEGATIVE); BACTERIA,URINE NEGATIVE /HPF; BARBITURATE SCREEN URINE NEGATIVE (NEGATIVE); BENZODIAZEPINES SCREEN URINE NEGATIVE (NEGATIVE); CANNABINOID SCREEN, URINE POSITIVE (NEGATIVE); COCAINE SCREEN URINE NEGATIVE (NEGATIVE); METHADONE STAT NEGATIVE (NEGATIVE); OPIATE SCREEN URINE NEGATIVE (NEGATIVE); OXYCODONE STAT NEGATIVE (NEGATIVE); PROPOXYPHENE STAT NEGATIVE (NEGATIVE); TRICYCLIC ANTIDEPRESSANTS SCRE NEGATIVE (NEGATIVE)
--- NOTE | 2021-11-06 00:05 | ED General ---
General Chief Complaint: Abdominal/GI Problems Stated Complaint: DIZZY Nursing Triage Note: Patient states he began experiencing nausea and vomiting approximately 30 minutes prior to EMS arrival. Patients states prior to EMS arrival he also had a bowel movement. EMS advised the patient experienced light headedness with them and was assisted to the cot via stair chair. Allergies and Home Medications Allergies Uncoded Allergies: BEE AND WASPS (Allergy, Unknown, 11/04/14) POISON YASMINE AND OAK (Allergy, Unknown, 11/04/14) Patient Home Medication List Albuterol Sulfate (Proair Hfa) 1 Puff Puff, 2 PUFF IH Q4H PRN for SHORTNESS OF BREATH, (Reported) Entered as Reported by: LING GARVEY on 02/11/18 110 Apixaban (Eliquis) 2.5 Mg Tablet, 2.5 MG PO BID Prescribed by: NAOMY BELTRÁN on 02/14/18 0839 Apixaban (Eliquis) 5 Mg Tablet, 5 MG PO BID Prescribed by: CAMELIA BRAN on 12/08/20 1459 Calcium Carbonate (Calcium) 500 Mg Tab.chew, 1,000 MG PO Q4H PRN for HEARTBURN, (Reported) Entered as Reported by: LING GARVEY on 02/11/18 110 Cyclobenzaprine HCl (Cyclobenzaprine HCl) 10 Mg Tablet, 10 MG PO Q8H PRN for MUSCLE SPASMS, (Reported) Entered as Reported by: LING GARVEY on 02/11/18 110 Diphenhydramine HCl (Benadryl) 25 Mg Capsule, 50 MG PO Q6H PRN for ALLERGIC REACTION, (Reported) Entered as Reported by: LING GARVEY on 02/11/18 110 Famotidine (Pepcid) 20 Mg Tablet, 20 MG PO DAILY Prescribed by: QUINN LYONS on 09/09/21 030 Levothyroxine Sodium (Levothyroxine Sodium) 100 Mcg Tablet, 100 MCG PO 2100, (Reported) Entered as Reported by: LING GARVEY on 02/11/18 110 Ondansetron (Ondansetron Odt) 8 Mg Tab.rapdis, 8 MG PO Q6H Prescribed by: ALEXANDRA WEIR on 10/07/212032 Pantoprazole Sodium (Protonix) 40 Mg Tablet.dr, 40 MG PO DAILY Prescribed by: ALEXANDRA WEIR on 10/07/212032 Risperidone (Risperdal Consta) 12.5 Mg/2 Ml Disp.syrin, 12.5 MG IM EVERY 2 WEEKS, (Reported) Entered as Reported by: LING GARVEY on 02/11/18 1131 Sertraline HCl (Sertraline HCl) 100 Mg Tablet, 100 MG PO HS, (Reported) Entered as Reported by: LING GARVEY on 02/11/18 1107 Simvastatin (Simvastatin) 10 Mg Tablet, 10 MG PO HS, (Reported) Entered as Reported by: LING GARVEY on 02/11/18 1153 Tetrahydrozoline HCl (Visine) 15 Ml Drops, 2 DROP OU Q6H PRN for EYE REDNESS, (Reported) Entered as Reported by: LING GARVEY on 02/11/18 1107 Past Zgnicic-Vfwvcp-Ddlxnr Hx Patient Social History Tobacco Use?: Yes Tobacco type used: Cigarettes Smoking Status: Current Everyday Smoker Substance use?: No Alcohol Use?: No Immunizations Up To Date Tetanus Booster (TDap): Unknown First/Initial COVID19 Vaccinat: 2020 Second COVID19 Vaccination Abdulkadir: 2020 Third COVID19 Vaccination Date: 2020 Seasonal Allergies Seasonal Allergies: Yes Past Medical History Surgery/Hospitalization HX: left total knee, chronic chest pain, anxiety, personality disorder, mild MR, high cholesterol, hypothryoidism Surgeries: Yes (LEFT TOTAL KNEE REPLACEMENT) Joint Replacement, Orthopedic Respiratory: Yes Asthma Cardiac: Yes ("CHRONIC CHEST PAIN"; DVT LEFT LEG 12/2020) Deep Vein Thrombosis, High Cholesterol Neurological: Yes (MILD MR) Genitourinary: No Gastrointestinal: No Musculoskeletal: Yes (LEFT KNEE REPLACEMENT; RIGHT KNEE SCOPE) Endocrine: Yes Hypothyroidsim HEENT: Yes (GLASSES) Loss of Vision: Bilateral Cancer: No 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) Anxiety, Personality Disorder Integumentary: Yes ( CELLULITIS LEFT LEG) Blood Disorders: No Family Medical History SOCIAL HISTORY: -SMOKES 1 PPD, ALSO VAPES NICOTINE DAILY -ETOH--QUIT DRINKING A YEAR AGO, PER PT 10/07/21 -DENIES DRUG USE PAST SURGICAL HISTORY: -LEFT KNEE SURGERY -RIGHT KNEE SCOPE 02/[address] QUINTEROS Physical Exam Vital Signs Vital Signs - First Documented 11/05/21 22:48 Temp 36.7 Pulse 84 Resp 18 B/P (MAP) 121/75 (90) Pulse Ox 99 O2 Delivery Room Air Capillary Refill : Less Than 3 Seconds Height, Weight, BMI Height: 5'10.00" Weight: 238lbs. 0.0oz. 107.166288hj; 31.00 BMI Method:Stated Progress/Results/Core Measures Suspected Sepsis SIRS Temperature: Pulse: 85 Respiratory Rate: 18 Laboratory Tests 11/05/21 23:00: White Blood Count 11.4H Blood Pressure 121 /75 Mean: 90 Laboratory Tests 11/05/21 23:00: Creatinine 0.85, INR Comment 1.0, Platelet Count 256, Total Bilirubin 0.3 Results/Orders Lab Results Laboratory Tests Test 11/05/21 23:00 11/05/21 23:15 Range/Units White Blood Count 11.4 H 4.3-11.0 10^3/uL Red Blood Count 4.25 L 4.30-5.52 10^6/uL Hemoglobin 13.4 13.3-17.7 g/dL Hematocrit 39 L 40-54 % Mean Corpuscular Volume 92 80-99 fL Mean Corpuscular Hemoglobin 32 25-34 pg Mean Corpuscular Hemoglobin Concent 34 32-36 g/dL Red Cell Distribution Width 12.3 10.0-14.5 % Platelet Count 256 130-400 10^3/uL Mean Platelet Volume 9.1 9.0-12.2 fL Immature Granulocyte % (Auto) 1 % Neutrophils (%) (Auto) 80 H 42-75 % Lymphocytes (%) (Auto) 12 12-44 % Monocytes (%) (Auto) 5 0-12 % Eosinophils (%) (Auto) 1 0-10 % Basophils (%) (Auto) 1 0-10 % Neutrophils # (Auto) 9.2 H 1.8-7.8 10^3/uL Lymphocytes # (Auto) 1.4 1.0-4.0 10^3/uL Monocytes # (Auto) 0.6 0.0-1.0 10^3/uL Eosinophils # (Auto) 0.1 0.0-0.3 10^3/uL Basophils # (Auto) 0.1 0.0-0.1 10^3/uL Immature Granulocyte # (Auto) 0.1 0.0-0.1 10^3/uL Prothrombin Time 13.1 12.2-14.7 SEC INR Comment 1.0 0.8-1.4 Activated Partial Thromboplast Time 31 24-35 SEC Sodium Level 139 135-145 MMOL/L Potassium Level 4.0 3.6-5.0 MMOL/L Chloride Level 104 98-107 MMOL/L Carbon Dioxide Level 24 21-32 MMOL/L Anion Gap 11 5-14 MMOL/L Blood Urea Nitrogen 19 H 7-18 MG/DL Creatinine 0.85 0.60-1.30 MG/DL Estimat Glomerular Filtration Rate 110 BUN/Creatinine Ratio 22 Glucose Level 118 H 70-105 MG/DL Calcium Level 9.4 8.5-10.1 MG/DL Corrected Calcium 9.3 8.5-10.1 MG/DL Magnesium Level 1.8 1.6-2.4 MG/DL Total Bilirubin 0.3 0.1-1.0 MG/DL Aspartate Amino Transf (AST/SGOT) 20 5-34 U/L Alanine Aminotransferase (ALT/SGPT) 21 0-55 U/L Alkaline Phosphatase 79 40-136 U/L Troponin I < 0.028 <0.028 NG/ML Total Protein 7.0 6.4-8.2 GM/DL Albumin 4.1 3.2-4.5 GM/DL Serum Alcohol < 10 <10 MG/DL Influenza Type A (RT-PCR) Not Detected Not Detecte Influenza Type B (RT-PCR) Not Detected Not Detecte SARS-CoV-2 RNA (RT-PCR) Not Detected Not Detecte Urine Color YELLOW Urine Clarity CLEAR Urine pH 6.0 5-9 Urine Specific [place] 1.025 H 1.016-1.022 Urine Protein NEGATIVE NEGATIVE Urine Glucose (UA) NEGATIVE NEGATIVE Urine Ketones NEGATIVE NEGATIVE Urine Nitrite NEGATIVE NEGATIVE Urine Bilirubin NEGATIVE NEGATIVE Urine Urobilinogen 0.2 < = 1.0 MG/DL Urine Leukocyte Esterase NEGATIVE NEGATIVE Urine RBC (Auto) NEGATIVE NEGATIVE Urine RBC NONE /HPF Urine WBC NONE /HPF Urine Squamous Epithelial Cells NONE /HPF Urine Crystals NONE /LPF Urine Bacteria NEGATIVE /HPF Urine Casts NONE /LPF Urine Mucus NEGATIVE /LPF Urine Culture Indicated NO Urine Opiates Screen NEGATIVE NEGATIVE Urine Oxycodone Screen NEGATIVE NEGATIVE Urine Methadone Screen NEGATIVE NEGATIVE Urine Propoxyphene Screen NEGATIVE NEGATIVE Urine Barbiturates Screen NEGATIVE NEGATIVE Ur Tricyclic Antidepressants Screen NEGATIVE NEGATIVE Urine Phencyclidine Screen NEGATIVE NEGATIVE Urine Amphetamines Screen NEGATIVE NEGATIVE Urine Methamphetamines Screen NEGATIVE NEGATIVE Urine Benzodiazepines Screen NEGATIVE NEGATIVE Urine Cocaine Screen NEGATIVE NEGATIVE Urine Cannabinoids Screen POSITIVE H NEGATIVE My Orders Orders - ALEXANDRA WEIR DO Ed Iv/Invasive Line Start (11/05/21 22:47) Ekg Tracing (11/05/21 22:47) Monitor-Rhythm Ecg Trace Only (11/05/21 22:47) Alcohol (11/05/21 22:47) Cbc With Automated Diff (11/05/21 22:47) Comprehensive Metabolic Panel (11/05/21 22:47) Drug Screen Stat (Urine) (11/05/21 22:47) Magnesium (11/05/21 22:47) Protime With Inr (11/05/21 22:47) Partial Thromboplastin Time (11/05/21 22:47) Ua Culture If Indicated (11/05/21 22:47) Troponin I Quay (11/05/21 22:47) Covid 19 Inhouse Test (11/05/21 22:47) Influenza A And B By Pcr (11/05/21 22:47) Isolation Central Supply Req (11/05/21 22:47) Ed Iv/Invasive Line Start (11/05/21 22:50) Lactated Ringers (Lr 1000 Ml Iv Solution (11/05/21 23:00) Ondansetron Injection (Zofran Injectio (11/05/21 23:00) Orthostatic Vital Signs (Adult (11/05/21 22:50) Ct Head Wo-R/O Stroke (11/05/21 22:50) Chest 1 View, Ap/Pa Only (11/05/21 22:50) Medications Given in ED Current Medications Medications Dose Ordered Sig/Sujatha Route Start Time Stop Time Status Last Admin Dose Admin Lactated Ringer's 1,000 ml @ 0 mls/hr Q0M ONCE IV 11/05/21 23:00 11/05/21 23:01 DC 11/05/21 23:23 0 MLS/HR Ondansetron HCl 4 mg ONCE ONCE IVP 11/05/21 23:00 11/05/21 23:01 DC 11/05/21 23:23 4 MG Vital Signs/I&O 11/05/21 11/05/21 22:48 22:54 Temp 36.7 Pulse 84 95 85 85 Resp 18 B/P (MAP) 121/75 (90) 93/77 (82) 123/78 (93) 121/75 (90) Pulse Ox 99 O2 Delivery Room Air Capillary Refill : Less Than 3 Seconds Blood Pressure Mean: 90 Departure Impression Primary Impression: Dizziness Additional Impressions: POSSIBLE HEAT RELATED ILLNESS Mild dehydration Disposition: 01 HOME, SELF-CARE Condition: Improved Departure-Patient Inst. Decision time for Depature: 00:02 Referrals: [facility] [place] (PCP/Family) Primary Care Physician Patient Instructions: Dehydration, Adult ED, Dizziness, Nonvertigo, (DC), Heat Illness ED Add. Discharge Instructions: LOTS OF CLEAR LIQUIDS--WATER, BROTH, JELLO, GATORADE NO COFFEE, POP OR TEA TAKE ALL OF YOUR REGULAR MEDICATIONS PRESCRIBED STAY INDOORS AND KEEP COOL--AVOID THE HEAT FOR THE NEXT FEW DAYS FOLLOW UP WITH YOUR DR IF SYMPTOMS PERSIST RETURN TO ER IF WORSE All discharge instructions reviewed with patient and/or family. Voiced understanding. ALEXANDRA WEIR DO Nov 06, 2021 00:05
[2021-11-06 01:13] VITALS: BP 118/78
--- NOTE | 2021-11-06 06:48 | Diagnostic Imaging Report ---
PROCEDURE: CT head wo r/o stroke. TECHNIQUE: Multiple contiguous axial images were obtained through the brain without the use of intravenous contrast. Auto Exposure Controls were utilized during the CT exam to meet ALARA standards for radiation dose reduction. Indication: Altered mental status, neurological deficit. Comparison: 09/29/2017. Discussion: No adverse interval change. No acute intracranial hemorrhage, mass, midline shift, hydrocephalus. The ventricles and sulci are normal size and configuration for age. Mild mucosal thickening within the ethmoid air cells and left frontal sinus. The mastoid air cells are well aerated. No air-fluid level. The orbits and calvarium are unremarkable. Impression: 1. Stable negative head CT. 2. Agree with preliminary report. Dictated by: Dictated on workstation # [id number]
--- NOTE | 2021-11-06 06:50 | Diagnostic Imaging Report ---
Indication: Dizziness and dyspnea. Comparison: 10/07/2021. Discussion: Single portable upright view of the chest was obtained. Stable normal heart size. Old right 5th and 6th rib fractures are stable. No consolidation, pleural fluid, or pneumothorax. No acute osseous abnormality. Impression: 1. Negative chest. Dictated by: Dictated on workstation # [id number]
== END 2021-11-06 01:15 | disposition home or self-care (01) ==
LOC: EDUNIT# 22:44 → ER 22:46
DX: E86.0 Dehydration (principal); F17.210 Nicotine dependence, cigarettes, uncomplicated; F17.290 Nicotine dependence, other tobacco product, uncomplicated; Z20.822 Contact with and (suspected) exposure to COVID-19
CPT/HCPCS: 70450; 71045; 80053; 80306; 81000; 83735; 84484; 85025; 85610; 85730; 87636; 93005; 93041; 99284; G0480; 36415; 80320

== ENCOUNTER 2021-11-08 19:32 | Emergency (ER) | payer MEDICARE, MEDICAID ==
[2021-11-08 19:50] VITALS: BP 107/70
--- NOTE | 2021-11-08 19:57 | ED Upper Extremity ---
General Chief Complaint: Upper Extremity Stated Complaint: PUNCHED WALL - RIGHT HAND PAIN / SWELLING Nursing Triage Note: pt reports punching a concrete wall on saturday and injuring his right hand. swelling noted to right hand. cms intact Source: patient Exam Limitations: no limitations History of Present Illness Date Seen by Provider: Nov 08, 2021 Time Seen by Provider: 19:57 Allergies and Home Medications Allergies Uncoded Allergies: BEE AND WASPS (Allergy, Unknown, 11/04/14) POISON YASMINE AND OAK (Allergy, Unknown, 11/04/14) Patient Home Medication List Albuterol Sulfate (Proair Hfa) 1 Puff Puff, 2 PUFF IH Q4H PRN for SHORTNESS OF BREATH, (Reported) Entered as Reported by: LING GARVEY on 02/11/18 1107 Apixaban (Eliquis) 2.5 Mg Tablet, 2.5 MG PO BID Prescribed by: NAOMY BELTRÁN on 02/14/18 0839 Apixaban (Eliquis) 5 Mg Tablet, 5 MG PO BID Prescribed by: CAMELIA BRAN on 12/08/20 1459 Calcium Carbonate (Calcium) 500 Mg Tab.chew, 1,000 MG PO Q4H PRN for HEARTBURN, (Reported) Entered as Reported by: LING GARVEY on 02/11/18 1107 Cyclobenzaprine HCl (Cyclobenzaprine HCl) 10 Mg Tablet, 10 MG PO Q8H PRN for MUSCLE SPASMS, (Reported) Entered as Reported by: LING GARVEY on 02/11/18 1107 Diphenhydramine HCl (Benadryl) 25 Mg Capsule, 50 MG PO Q6H PRN for ALLERGIC REACTION, (Reported) Entered as Reported by: LING GARVEY on 02/11/18 1107 Famotidine (Pepcid) 20 Mg Tablet, 20 MG PO DAILY Prescribed by: QUINN LYONS on 09/09/212 Levothyroxine Sodium (Levothyroxine Sodium) 100 Mcg Tablet, 100 MCG PO 2100, (Reported) Entered as Reported by: LING GARVEY on 02/11/18 1107 Ondansetron (Ondansetron Odt) 8 Mg Tab.rapdis, 8 MG PO Q6H Prescribed by: ALEXANDRA WEIR on 8/6/22 2033 Pantoprazole Sodium (Protonix) 40 Mg Tablet.dr, 40 MG PO DAILY Prescribed by: ALEXANDRA WEIR on 10/07/212032 Risperidone (Risperdal Consta) 12.5 Mg/2 Ml Disp.syrin, 12.5 MG IM EVERY 2 WEEKS, (Reported) Entered as Reported by: LING GARVEY on 02/11/18 1131 Sertraline HCl (Sertraline HCl) 100 Mg Tablet, 100 MG PO HS, (Reported) Entered as Reported by: LING GARVEY on 02/11/18 1107 Simvastatin (Simvastatin) 10 Mg Tablet, 10 MG PO HS, (Reported) Entered as Reported by: LING GARVEY on 02/11/18 1153 Tetrahydrozoline HCl (Visine) 15 Ml Drops, 2 DROP OU Q6H PRN for EYE REDNESS, (Reported) Entered as Reported by: LING GARVEY on 02/11/18 110 Past Fnngcyt-Fzkfrr-Kqgwai Hx Patient Social History Tobacco Use?: Yes Smoking Status: Current Everyday Smoker Pt feels they are or have been: No Immunizations Up To Date Tetanus Booster (TDap): Unknown Influenza Vaccine Up-to-Date: No; Not Current First/Initial COVID19 Vaccinat: unknown Second COVID19 Vaccination Abdulkadir: unknown Third COVID19 Vaccination Date: 2020 COVID19 Vaccine Brick Pitcher: unknown Seasonal Allergies Seasonal Allergies: Yes Past Medical History Surgery/Hospitalization HX: left total knee, chronic chest pain, anxiety, personality disorder, mild MR, high cholesterol, hypothryoidism Surgeries: Yes (LEFT TOTAL KNEE REPLACEMENT) Joint Replacement, Orthopedic Respiratory: Yes Asthma Cardiac: Yes ("CHRONIC CHEST PAIN"; DVT LEFT LEG 12/2020) Deep Vein Thrombosis, High Cholesterol Neurological: Yes (MILD MR) Genitourinary: No Gastrointestinal: No Musculoskeletal: Yes (LEFT KNEE REPLACEMENT; RIGHT KNEE SCOPE) Endocrine: Yes Hypothyroidsim HEENT: Yes (GLASSES) Loss of Vision: Bilateral Cancer: No 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) Anxiety, Personality Disorder Integumentary: Yes ( CELLULITIS LEFT LEG) Blood Disorders: No Family Medical History SOCIAL HISTORY: -SMOKES 1 PPD, ALSO VAPES NICOTINE DAILY -ETOH--QUIT DRINKING A YEAR AGO, PER PT 10/07/21 -DENIES DRUG USE PAST SURGICAL HISTORY: -LEFT KNEE SURGERY -RIGHT KNEE SCOPE 02/[address] QUINTEROS Physical Exam Vital Signs Vital Signs - First Documented 11/08/21 19:50 Pulse 82 Resp 18 B/P (MAP) 107/70 (82) Pulse Ox 96 O2 Delivery Room Air Capillary Refill : Height, Weight, BMI Height: 5'10.00" Weight: 238lbs. 0.0oz. 107.535425bs; 31.00 BMI Method:Stated Progress/Results/Core Measures Results/Orders My Orders Orders - JOVANNA HIRSCH APRN Acetaminophen Tablet (Tylenol Tablet) (11/08/21 20:30) Medications Given in ED Current Medications Medications Dose Ordered Sig/Sujatha Route Start Time Stop Time Status Last Admin Dose Admin Acetaminophen 1,000 mg ONCE ONCE PO 11/08/21 20:30 11/08/21 20:31 DC 11/08/21 20:31 1,000 MG Vital Signs/I&O 11/08/21 19:50 Pulse 82 Resp 18 B/P (MAP) 107/70 (82) Pulse Ox 96 O2 Delivery Room Air Blood Pressure Mean: 82 Departure Impression Primary Impression: Boxer's fracture with routine healing Disposition: 01 HOME, SELF-CARE Condition: Improved Departure-Patient Inst. Decision time for Depature: 20:22 Referrals: [facility] [place] (PCP/Family) Primary Care Physician Patient Instructions: Hand Fracture ED, LOCAL PHYSICIAN LIST Add. Discharge Instructions: Plan: 1. Discharge home. 2. Follow up with orthopedic provider of choice. 3. Keep affected site elevated above your heart to reduce swelling. 4. Keep splings or dressings dry. 5. Wear steven bandage as directed. Re-wrap at least twice daily. 6. Ice 20 minutes at a time. 7. Wiggle fingers often to prevent swelling. 8. If extremity becomes numb, cold, more painful, blanched or discolored or excessively swollen, contact your physician or return to the ER. 9. May take Tylenol or Ibuprofen as needed for pain per package. 10. Return to ER for any new, concerning, or worsening symptoms. All discharge instructions reviewed with patient and/or family. Voiced understanding. JOVANNA HIRSCH APRN Nov 08, 2021 19:57
--- NOTE | 2021-11-08 20:13 | Diagnostic Imaging Report ---
CLINICAL INDICATION: Patient punched wall. EXAM: X-ray of the right hand, 3 views. COMPARISON: X-ray of the right hand dated 01/31/2021. FINDINGS AND IMPRESSION: 1: There is no evidence of acute fracture or dislocation. There is soft tissue swelling seen adjacent to the metacarpal portion of the hand. 2: There is interval progression of healing involving the fracture of the mid diaphysis of the 4th metacarpal bone with bony bridging seen in the region. The lucency is still seen in the area, but there is bony bridging. 3: There is no other significant abnormality seen involving this exam. Dictated by: Dictated on workstation # [id number]
[2021-11-08] MEDS ORDERED: ACETAMINOPHEN 500 MG TAB (TYLENOL) PO ONE (20:30)
== END 2021-11-08 20:52 | disposition home or self-care (01) ==
LOC: EDUNIT# 19:32 → ER 19:34
DX: S62.91XA Unspecified fracture of right hand, initial encounter for closed fracture (principal); W22.01XA Walked into wall, initial encounter
CPT/HCPCS: 73130

== ENCOUNTER 2021-11-29 03:03 | Emergency (ER) | payer MEDICARE, MEDICAID ==
[~2021-11-29] VITALS: Ht 182.8 cm; Wt 83.5 kg
[2021-11-29] MEDS ORDERED: FAMOTIDINE 20 MG (PEPCID) TABLET PO STA (03:10)
[2021-11-29] MEDS ORDERED: ONDANSETRON 4 MG/2 ML (SDV) Z0FRAN IVP ONE (03:15)
[2021-11-29] MEDS ORDERED: NS IV 1000 ML 1,000 ML IV SCH (03:15)
[2021-11-29] MEDS ORDERED: ANTACID SUSP 30 ML UDC (MYLANTA) PO ONE (03:15)
[2021-11-29] MEDS ORDERED: LIDOCAINE 2% VISCOUS 15 ML UDC PO ONE (03:15)
[2021-11-29 03:19] LABS: BASOPHILS # (AUTO) 0.1 10^3/uL (0.0-0.1); BASOPHILS % (AUTO) 1 % (0-10); EOSINOPHILS # (AUTO) 0.4 10^3/uL (0.0-0.3); EOSINOPHILS % (AUTO) 5 % (0-10); HEMATOCRIT 38 % (40-54); HEMOGLOBIN 13.1 g/dL (13.3-17.7); LYMPHOCYTES # (AUTO) 2.5 10^3/uL (1.0-4.0); LYMPHOCYTES % (AUTO) 33 % (12-44); MEAN CORPUSCULAR HEMOGLOBIN 32 pg (25-34); MEAN CORPUSCULAR HGB CONC 34 g/dL (32-36); MEAN CORPUSCULAR VOLUME 92 fL (80-99); MEAN PLATELET VOLUME 9.3 fL (9.0-12.2); MONOCYTES # (AUTO) 0.5 10^3/uL (0.0-1.0); MONOCYTES % (AUTO) 6 % (0-12); NEUTROPHILS # (AUTO) 4.3 10^3/uL (1.8-7.8); NEUTROPHILS % (AUTO) 56 % (42-75); PLATELET COUNT 240 10^3/uL (130-400); WHITE BLOOD COUNT 7.8 10^3/uL (4.3-11.0)
--- NOTE | 2021-11-29 03:19 | ED Abdominal Pain ---
General Chief Complaint: Abdominal/GI Problems Stated Complaint: ABD PAIN Source of Information: Patient Exam Limitations: No Limitations History of Present Illness Date Seen by Provider: Nov 29, 2021 Time Seen by Provider: 02:58 Initial Comments Patient to the ER by EMS from home with chief complaint that just prior to arrival he awoke feeling nauseated having some epigastric abdominal pain and went and laid on the couch. His family says he was minimally responsive pale. He has had no fevers or chills. He has nausea without vomiting. No diarrhea. He had a bowel movement yesterday. No abdominal surgeries. He has a history of hypothyroidism, depression, GERD on omeprazole and Pepcid. He also was using na proxen for chronic pain. He smokes cigarettes. He denies recreational drugs or alcohol. At least historically he was on Risperdal IM. He rates his pain as a 10 out of 10. He did not take anything for the pain at home. EMS reports his blood sugar was 88. Patient with pertinent history of mild MR, lives with his sister, difficult historian and quit drinking over a year ago. He had a history of a DVT completing a course of Eliquis. Patient is known to Dr. Wang at [facility] as well as goes to [facility]. Patient presented 2 months ago for similar complaint and at that time had a complete and thorough laboratory and CT examination of his abdomen which was unrevealing. Patient was given a GI cocktail which completely resolved his pain. Allergies and Home Medications Allergies Uncoded Allergies: BEE AND WASPS (Allergy, Unknown, 11/04/14) POISON YASMINE AND OAK (Allergy, Unknown, 11/04/14) Patient Home Medication List Home Medication List Reviewed: Yes Albuterol Sulfate (Proair Hfa) 1 Puff Puff, 2 PUFF IH Q4H PRN for SHORTNESS OF BREATH, (Reported) Entered as Reported by: LING GARVEY on 02/11/18 1107 Apixaban (Eliquis) 2.5 Mg Tablet, 2.5 MG PO BID Prescribed by: NAOMY BELTRÁN on 02/14/18 0839 Apixaban (Eliquis) 5 Mg Tablet, 5 MG PO BID Prescribed by: CAMELIA BRAN on 12/08/20 1459 Calcium Carbonate (Calcium) 500 Mg Tab.chew, 1,000 MG PO Q4H PRN for HEARTBURN, (Reported) Entered as Reported by: LING GARVEY on 02/11/181106 Cyclobenzaprine HCl (Cyclobenzaprine HCl) 10 Mg Tablet, 10 MG PO Q8H PRN for MUSCLE SPASMS, (Reported) Entered as Reported by: LING GARVEY on 02/11/181106 Diphenhydramine HCl (Benadryl) 25 Mg Capsule, 50 MG PO Q6H PRN for ALLERGIC REACTION, (Reported) Entered as Reported by: LING GARVEY on 02/11/181106 Famotidine (Pepcid) 20 Mg Tablet, 20 MG PO DAILY Prescribed by: QUINN LYONS on 09/09/21 030 Levothyroxine Sodium (Levothyroxine Sodium) 100 Mcg Tablet, 100 MCG PO 2100, (Re ported) Entered as Reported by: LING GARVEY on 02/11/181106 Ondansetron (Ondansetron Odt) 8 Mg Tab.rapdis, 8 MG PO Q6H Prescribed by: ALEXANDRA WEIR on 10/07/212032 Pantoprazole Sodium (Protonix) 40 Mg Tablet.dr, 40 MG PO DAILY Prescribed by: ALEXANDRA WEIR on 10/07/212032 Risperidone (Risperdal Consta) 12.5 Mg/2 Ml Disp.syrin, 12.5 MG IM EVERY 2 WEEKS, (Reported) Entered as Reported by: LING GARVEY on 02/11/18 1131 Sertraline HCl (Sertraline HCl) 100 Mg Tablet, 100 MG PO HS, (Reported) Entered as Reported by: LING GARVEY on 02/11/18 110 Simvastatin (Simvastatin) 10 Mg Tablet, 10 MG PO HS, (Reported) Entered as Reported by: LING GARVEY on 02/11/18 115 Tetrahydrozoline HCl (Visine) 15 Ml Drops, 2 DROP OU Q6H PRN for EYE REDNESS, (Reported) Entered as Reported by: LING GARVEY on 02/11/181106 Review of Systems Review of Systems Constitutional: No chills, No fever EENTM: No Blurred Vision, No Double Vision Respiratory: Denies Cough, Denies Shortness of Air Cardiovascular: Denies Chest Pain, Denies Edema Gastrointestinal: See HPI, Abdominal Pain; Denies Constipated, Denies Diarrhea; Nausea Genitourinary: Denies Burning, Denies Discharge Musculoskeletal: No back pain, No joint pain All Other Systems Reviewed Negative Unless Noted: Yes Past Xzzomib-Pyhlgh-Qpwypo Hx Patient Social History Tobacco Use?: Yes Tobacco type used: Cigarettes Smoking Status: Current Everyday Smoker Use of E-Cig and/or Vaping dev: No Substance use?: No Immunizations Up To Date Tetanus Booster (TDap): Unknown First/Initial COVID19 Vaccinat: unknown Second COVID19 Vaccination Abdulkadir: unknown Third COVID19 Vaccination Date: 2020 Seasonal Allergies Seasonal Allergies: Yes Past Medical History Surgery/Hospitalization HX: left total knee, chronic chest pain, anxiety, personality disorder, mild MR, high cholesterol, hypothryoidism Surgeries: Yes (LEFT TOTAL KNEE REPLACEMENT) Joint Replacement, Orthopedic Respiratory: Yes Asthma Cardiac: Yes ("CHRONIC CHEST PAIN"; DVT LEFT LEG 12/2020) Deep Vein Thrombosis, High Cholesterol Neurological: Yes (MILD MR) Genitourinary: No Gastrointestinal: No Musculoskeletal: Yes (LEFT KNEE REPLACEMENT; RIGHT KNEE SCOPE) Endocrine: Yes Hypothyroidsim HEENT: Yes (GLASSES) Loss of Vision: Bilateral Cancer: No 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) Anxiety, Personality Disorder Integumentary: Yes ( CELLULITIS LEFT LEG) Blood Disorders: No Family Medical History SOCIAL HISTORY: -SMOKES 1 PPD, ALSO VAPES NICOTINE DAILY -ETOH--QUIT DRINKING A YEAR AGO, PER PT 10/07/21 -DENIES DRUG USE PAST SURGICAL HISTORY: -LEFT KNEE SURGERY -RIGHT KNEE SCOPE 02/[address] QUINTEROS Physical Exam Vital Signs Vital Signs - First Documented 11/29/21 03:03 Temp 36.6 Pulse 63 Resp 16 B/P (MAP) 119/84 (96) Pulse Ox 99 O2 Delivery Room Air Capillary Refill : Height/Weight/BMI Height: 5'10.00" Weight: 238lbs. 0.0oz. [id number]; 31.00 BMI Method:Stated General Appearance: WD/WN, no apparent distress HEENT: PERRL/EOMI, normal ENT inspection, TMs normal, pharynx normal Neck: non-tender, full range of motion, supple, normal inspection Respiratory: lungs clear, normal breath sounds, no respiratory distress, no accessory muscle use Cardiovascular: normal peripheral pulses, regular rate, rhythm Peripheral Pulses: 2+ Radial Pulses (R), 2+ Radial Pulses (L) Gastrointestinal: normal bowel sounds, non tender, soft, no organomegaly Extremities: normal range of motion, non-tender, normal capillary refill Neurologic/Psychiatric: alert, normal mood/affect, oriented x 3 Skin: normal color, warm/dry Progress/Results/Core Measures Results/Orders Lab Results Laboratory Tests Test 11/29/21 03:05 11/29/21 03:15 11/29/21 03:21 Range/Units White Blood Count 7.8 4.3-11.0 10^3/uL Red Blood Count 4.16 L 4.30-5.52 10^6/uL Hemoglobin 13.1 L 13.3-17.7 g/dL Hematocrit 38 L 40-54 % Mean Corpuscular Volume 92 80-99 fL Mean Corpuscular Hemoglobin 32 25-34 pg Mean Corpuscular Hemoglobin Concent 34 32-36 g/dL Red Cell Distribution Width 12.1 10.0-14.5 % Platelet Count 240 130-400 10^3/uL Mean Platelet Volume 9.3 9.0-12.2 fL Immature Granulocyte % (Auto) 0 % Neutrophils (%) (Auto) 56 42-75 % Lymphocytes (%) (Auto) 33 12-44 % Monocytes (%) (Auto) 6 0-12 % Eosinophils (%) (Auto) 5 0-10 % Basophils (%) (Auto) 1 0-10 % Neutrophils # (Auto) 4.3 1.8-7.8 10^3/uL Lymphocytes # (Auto) 2.5 1.0-4.0 10^3/uL Monocytes # (Auto) 0.5 0.0-1.0 10^3/uL Eosinophils # (Auto) 0.4 H 0.0-0.3 10^3/uL Basophils # (Auto) 0.1 0.0-0.1 10^3/uL Immature Granulocyte # (Auto) 0.0 0.0-0.1 10^3/uL Sodium Level 138 135-145 MMOL/L Potassium Level 3.7 3.6-5.0 MMOL/L Chloride Level 104 98-107 MMOL/L Carbon Dioxide Level 22 21-32 MMOL/L Anion Gap 12 5-14 MMOL/L Blood Urea Nitrogen 10 7-18 MG/DL Creatinine 0.82 0.60-1.30 MG/DL Estimat Glomerular Filtration Rate 110 BUN/Creatinine Ratio 12 Glucose Level 96 70-105 MG/DL Calcium Level 8.9 8.5-10.1 MG/DL Corrected Calcium 8.9 8.5-10.1 MG/DL Total Bilirubin 0.4 0.1-1.0 MG/DL Aspartate Amino Transf (AST/SGOT) 25 5-34 U/L Alanine Aminotransferase (ALT/SGPT) 28 0-55 U/L Alkaline Phosphatase 66 40-136 U/L C-Reactive Protein High Sensitivity 0.28 0.00-0.50 MG/DL Total Protein 6.5 6.4-8.2 GM/DL Albumin 4.0 3.2-4.5 GM/DL Lipase 39 8-78 U/L Serum Alcohol 20 H <10 MG/DL Urine Color YELLOW Urine Clarity CLEAR Urine pH 6.0 5-9 Urine Specific [place] >=1.030 1.016-1.022 Urine Protein NEGATIVE NEGATIVE Urine Glucose (UA) NEGATIVE NEGATIVE Urine Ketones NEGATIVE NEGATIVE Urine Nitrite NEGATIVE NEGATIVE Urine Bilirubin NEGATIVE NEGATIVE Urine Urobilinogen 0.2 < = 1.0 MG/DL Urine Leukocyte Esterase NEGATIVE NEGATIVE Urine RBC (Auto) NEGATIVE NEGATIVE Urine RBC NONE /HPF Urine WBC 0-2 /HPF Urine Crystals NONE /LPF Urine Bacteria NEGATIVE /HPF Urine Casts NONE /LPF Urine Mucus MODERATE H /LPF Urine Culture Indicated NO Urine Opiates Screen NEGATIVE NEGATIVE Urine Oxycodone Screen NEGATIVE NEGATIVE Urine Methadone Screen NEGATIVE NEGATIVE Urine Propoxyphene Screen NEGATIVE NEGATIVE Urine Barbiturates Screen NEGATIVE NEGATIVE Ur Tricyclic Antidepressants Screen NEGATIVE NEGATIVE Urine Phencyclidine Screen NEGATIVE NEGATIVE Urine Amphetamines Screen NEGATIVE NEGATIVE Urine Methamphetamines Screen NEGATIVE NEGATIVE Urine Benzodiazepines Screen NEGATIVE NEGATIVE Urine Cocaine Screen NEGATIVE NEGATIVE Urine Cannabinoids Screen NEGATIVE NEGATIVE Glucometer 88 70-110 MG/DL My Orders Orders - ABBEY AHIDER Ondansetron Injection (Zofran Injectio (11/29/21 03:15) Lidocaine 2% Viscous 15 Ml (Xylocaine Vi (11/29/21 03:15) Famotidine Tablet (Pepcid Tablet) (11/29/21 03:10) Antacid Suspension (Mylanta Suspension (11/29/21 03:15) Ed Iv/Invasive Line Start (11/29/21 03:10) Ns Iv 1000 Ml (Sodium Chloride 0.9%) (11/29/21 03:15) Cbc With Automated Diff (11/29/21 03:10) Comprehensive Metabolic Panel (11/29/21 03:10) Hs C Reactive Protein (11/29/21 03:10) Alcohol (11/29/21 03:10) Lipase (11/29/21 03:10) Ua Culture If Indicated (11/29/21 03:10) Drug Screen Stat (Urine) (11/29/21 03:10) Accucheck Stat ONCE (11/29/21 03:11) Medications Given in ED Current Medications Medications Dose Ordered Sig/Sujatha Route Start Time Stop Time Status Last Admin Dose Admin Al Hydrox/Mg Hydrox/Simethicone 30 ml ONCE ONCE PO 11/29/21 03:15 11/29/21 03:16 DC 11/29/21 03:17 30 ML Lidocaine HCl 15 ml ONCE ONCE PO 11/29/21 03:15 11/29/21 03:16 DC 11/29/21 03:17 15 ML Ondansetron HCl 4 mg ONCE ONCE IVP 11/29/21 03:15 11/29/21 03:16 DC 11/29/21 03:16 4 MG Vital Signs/I&O 11/29/21 03:03 Temp 36.6 Pulse 63 Resp 16 B/P (MAP) 119/84 (96) Pulse Ox 99 O2 Delivery Room Air Progress Progress Note #1: Time: 03:17 Progress Note We will start with a GI cocktail for his pain to see if this helps. We will give him 4 mg IV Zofran. We have him a liter of fluids and check some labs. He has a septic vital signs and an unremarkable abdominal exam. Progress Note #2: Time: 03:52 Progress Note Patient was asleep when this provider reentered the room. He states his pain is significantly better. He is not having any nausea. Plan to let him go home with instructions to follow-up with a primary care doctor if his antacids alone are not helping. Departure Impression Primary Impression: Gastritis Qualified Codes: K29.50 - Unspecified chronic gastritis without bleeding Disposition: 01 HOME, SELF-CARE Condition: Stable Departure-Patient Inst. Decision time for Depature: 03:53 Referrals: [facility] [place] ([place]Family) Primary Care Physician DELMAN,ENEDELIA B DO Patient Instructions: Gastritis (DC) Add. Discharge Instructions: If your pain comes back then take an antacid such as Tums, Maalox, Mylanta. Continue to take your omeprazole as prescribed. If it is persistent then follow-up with your primary care doctor or with Dr. Duncan, general surgery to discuss endoscopy. All discharge instructions reviewed with patient and/or family. Voiced understanding. Copy Copies To 1: ENEDELIA DUNCAN DO ABBEY HAIDER Nov 29, 2021 03:19
[2021-11-29 03:20] LABS: BILIRUBIN,URINE NEGATIVE (NEGATIVE); CLARITY,URINE CLEAR; COLOR,URINE YELLOW; GLUCOSE, URINE (UA) NEGATIVE (NEGATIVE); KETONES,URINE NEGATIVE (NEGATIVE); LEUKOCYTE ESTERASE ,URINE NEGATIVE (NEGATIVE); NITRITE,URINE NEGATIVE (NEGATIVE); PROTEIN,URINE NEGATIVE (NEGATIVE)
[2021-11-29 03:26] LABS: POTASSIUM 3.7 MMOL/L (3.6-5.0)
[2021-11-29 03:27] LABS: CALCIUM 8.9 MG/DL (8.5-10.1)
[2021-11-29 03:28] LABS: TOTAL PROTEIN 6.5 GM/DL (6.4-8.2)
[2021-11-29 03:30] LABS: BILIRUBIN,TOTAL 0.4 MG/DL (0.1-1.0)
[2021-11-29 03:32] LABS: CREATININE SERUM 0.82 MG/DL (0.60-1.30)
[2021-11-29 03:42] LABS: AMPHETAMINE SCREEN, URINE NEGATIVE (NEGATIVE); BARBITURATE SCREEN URINE NEGATIVE (NEGATIVE); BENZODIAZEPINES SCREEN URINE NEGATIVE (NEGATIVE); CANNABINOID SCREEN, URINE NEGATIVE (NEGATIVE); COCAINE SCREEN URINE NEGATIVE (NEGATIVE); METHADONE STAT NEGATIVE (NEGATIVE); OPIATE SCREEN URINE NEGATIVE (NEGATIVE); OXYCODONE STAT NEGATIVE (NEGATIVE); PROPOXYPHENE STAT NEGATIVE (NEGATIVE); TRICYCLIC ANTIDEPRESSANTS SCRE NEGATIVE (NEGATIVE)
[2021-11-29 03:45] LABS: BACTERIA,URINE NEGATIVE /HPF; WBC,URINE 0-2 /HPF
[2021-11-29 03:59] VITALS: BP 106/72
== END 2021-11-29 04:05 | disposition home or self-care (01) ==
LOC: EDUNIT# 03:03 → ER 03:04
DX: K29.70 Gastritis, unspecified, without bleeding (principal); K21.9 Gastro-esophageal reflux disease without esophagitis; G89.29 Other chronic pain; F17.210 Nicotine dependence, cigarettes, uncomplicated; Z28.310 Unvaccinated for COVID-19; Z79.1 Long term (current) use of non-steroidal anti-inflammatories (NSAID); Z79.899 Other long term (current) drug therapy
CPT/HCPCS: 80053; 80306; 81000; 82947; 83690; 85025; 86141; 96374; 99284; G0480; 36415; 80320

== ENCOUNTER 2022-03-12 17:55 | Emergency (ER) | payer MEDICARE, MEDICAID ==
[~2022-03-12] VITALS: Ht 177 cm; Wt 81.9 kg
[~2022-03-12 17:55] MED LIST changes: +ALBU8.5H6 IH; -RT-ALBUINH IH
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
[2022-03-12 19:09] LABS: BILIRUBIN,URINE NEGATIVE (NEGATIVE); CLARITY,URINE CLEAR; COLOR,URINE YELLOW; GLUCOSE, URINE (UA) NEGATIVE (NEGATIVE); KETONES,URINE NEGATIVE (NEGATIVE); LEUKOCYTE ESTERASE ,URINE NEGATIVE (NEGATIVE); NITRITE,URINE NEGATIVE (NEGATIVE); PH,URINE 5.5 (5-9); PROTEIN,URINE NEGATIVE (NEGATIVE)
[2022-03-12 19:11] LABS: BASOPHILS # (AUTO) 0.1 10^3/uL (0.0-0.1); BASOPHILS % (AUTO) 1 % (0-10); EOSINOPHILS # (AUTO) 0.3 10^3/uL (0.0-0.3); EOSINOPHILS % (AUTO) 4 % (0-10); HEMATOCRIT 37 % (40-54); HEMOGLOBIN 12.8 g/dL (13.3-17.7); LYMPHOCYTES # (AUTO) 2.5 10^3/uL (1.0-4.0); LYMPHOCYTES % (AUTO) 30 % (12-44); MEAN CORPUSCULAR HEMOGLOBIN 31 pg (25-34); MEAN CORPUSCULAR HGB CONC 34 g/dL (32-36); MEAN CORPUSCULAR VOLUME 91 fL (80-99); MEAN PLATELET VOLUME 9.3 fL (9.0-12.2); MONOCYTES # (AUTO) 0.7 10^3/uL (0.0-1.0); MONOCYTES % (AUTO) 8 % (0-12); NEUTROPHILS # (AUTO) 4.6 10^3/uL (1.8-7.8); NEUTROPHILS % (AUTO) 57 % (42-75); PLATELET COUNT 417 10^3/uL (130-400); WHITE BLOOD COUNT 8.2 10^3/uL (4.3-11.0)
[2022-03-12] MEDS ORDERED: ANTACID SUSP 30 ML UDC (MYLANTA) PO ONE (19:15)
[2022-03-12] MEDS ORDERED: ONDANSETRON 4 MG/2 ML (SDV) Z0FRAN IVP ONE (19:15)
[2022-03-12] MEDS ORDERED: LIDOCAINE 2% VISCOUS 15 ML UDC PO ONE (19:15)
[2022-03-12 19:19] LABS: ALBUMIN 3.8 GM/DL (3.2-4.5); POTASSIUM 3.8 MMOL/L (3.6-5.0)
[2022-03-12 19:20] LABS: CALCIUM 8.8 MG/DL (8.5-10.1)
[2022-03-12 19:21] LABS: TOTAL PROTEIN 6.9 GM/DL (6.4-8.2)
[2022-03-12 19:23] LABS: BILIRUBIN,TOTAL 0.2 MG/DL (0.1-1.0)
[2022-03-12 19:25] LABS: CREATININE SERUM 0.98 MG/DL (0.60-1.30)
[2022-03-12 19:29] LABS: BACTERIA,URINE NEGATIVE /HPF; CALCIUM OXALATE CRYSTALS,UR FEW /LPF; SQUAMOUS EPITHELIAL CELL,UR 0-2 /HPF; WBC,URINE 0-2 /HPF
[2022-03-12] MEDS ORDERED: OMEP20CA18 PO (21:00)
[2022-03-12] MEDS ORDERED: PANTOPRAZOLE 40 MG (PROTONIX) VIAL IV ONE (21:00)
[2022-03-12] MEDS ORDERED: cefTRIAXone 1,000 MG VIAL ONE (21:08)
[2022-03-12 21:21] VITALS: BP 137/78
== END 2022-03-12 21:22 | disposition home or self-care (01) ==
LOC: EDUNIT# 17:55 → ER 17:57
DX: R10.12 Left upper quadrant pain (principal); R10.32 Left lower quadrant pain; F17.210 Nicotine dependence, cigarettes, uncomplicated; F17.290 Nicotine dependence, other tobacco product, uncomplicated; Z87.19 Personal history of other diseases of the digestive system
CPT/HCPCS: 36415; 80053; 81000; 83690; 85025

== ENCOUNTER 2022-03-17 05:26 | Emergency (ER) | payer MEDICARE, MEDICAID ==
[~2022-03-17] VITALS: Ht 177.8 cm; Wt 84.0 kg
[~2022-03-17 05:26] MED LIST changes: +OMEP20CA18 PO
[2022-03-17] MEDS ORDERED: LIDOCAINE UROJET 2% GEL 10 ML PKG TOP ONE (05:30)
[2022-03-17] MEDS ORDERED: NS IV 1000 ML 1,000 ML IV SCH (05:30)
[2022-03-17 05:50] LABS: BASOPHILS # (AUTO) 0.1 10^3/uL (0.0-0.1); BASOPHILS % (AUTO) 1 % (0-10); EOSINOPHILS % (AUTO) 0 % (0-10); HEMATOCRIT 39 % (40-54); HEMOGLOBIN 13.4 g/dL (13.3-17.7); LYMPHOCYTES # (AUTO) 1.9 10^3/uL (1.0-4.0); LYMPHOCYTES % (AUTO) 14 % (12-44); MEAN CORPUSCULAR HEMOGLOBIN 31 pg (25-34); MEAN CORPUSCULAR HGB CONC 35 g/dL (32-36); MEAN CORPUSCULAR VOLUME 89 fL (80-99); MONOCYTES # (AUTO) 1.3 10^3/uL (0.0-1.0); MONOCYTES % (AUTO) 10 % (0-12); NEUTROPHILS # (AUTO) 9.6 10^3/uL (1.8-7.8); NEUTROPHILS % (AUTO) 75 % (42-75); PLATELET COUNT 326 10^3/uL (130-400); WHITE BLOOD COUNT 12.9 10^3/uL (4.3-11.0)
[2022-03-17 05:56] LABS: ALBUMIN 4.1 GM/DL (3.2-4.5); CHLORIDE 101 MMOL/L (98-107); POTASSIUM 3.8 MMOL/L (3.6-5.0); SODIUM 135 MMOL/L (135-145)
[2022-03-17 05:57] LABS: AMYLASE 32 U/L (25-125); CALCIUM 9.7 MG/DL (8.5-10.1); INR 1.1 (0.8-1.4); PROTHROMBIN TIME PATIENT 14.6 SEC (12.2-14.7)
[2022-03-17 05:59] LABS: GLUCOSE 127 MG/DL (70-105); TOTAL PROTEIN 7.1 GM/DL (6.4-8.2)
[2022-03-17 06:00] LABS: BILIRUBIN,TOTAL 0.9 MG/DL (0.1-1.0); CARBON DIOXIDE 21 MMOL/L (21-32)
[2022-03-17 06:02] LABS: ALKALINE PHOSPHATASE 82 U/L (40-136); CREATININE SERUM 0.77 MG/DL (0.60-1.30); GFR ESTIMATED 113
[2022-03-17 06:03] LABS: BUN/CREATININE RATIO 31
[2022-03-17 06:05] LABS: ALANINE AMINOTRANSFERASE 26 U/L (0-55); MAGNESIUM 2.1 MG/DL (1.6-2.4)
[2022-03-17 06:06] LABS: CREATINE KINASE 897 U/L (30-200)
[2022-03-17 06:08] LABS: ERYTHROCYTE SEDIMENTATION RATE 12 MM/HR (0-15)
--- NOTE | 2022-03-17 06:08 | ED Fall/Injury ---
General Chief Complaint: Trauma-Non Activation Stated Complaint: FALL Nursing Triage Note: brought in by [facility] pt reports tripping/ falling in road and laying outside for 1.5-2hrs. c/o lower back pain radiating to both legs. c-collar in place. Source: patient, EMS (ALEXANDRA WEIR DO) History of Present Illness Date Seen by Provider: Mar 17, 2022 Time Seen by Provider: 05:23 Initial Comments PT ARRIVES VIA EMS WITH CERVICAL COLLAR IN PLACE PT IS HOMELESS, AND WAS WALKING DOWN THE ROAD, TRYING TO FIND A PLACE TO STAY STATES HE LOST HIS BALANCE AND FELL AND COULDN'T GET UP. HE HAS REPORTEDLY BEEN LAYING IN THE ROAD FOR 1 1/2-2 HOURS. C/O LOW BACK PAIN AND BILATERAL LEG PAIN--HURTS TO MOVE. STATES HIS FEET ARE NUMB. DID NOT HIT HEAD AND NO LOSS OF CONSCIOUSNESS NO NECK PAIN NO CHEST PAIN OR SHORTNESS OF BREATH HAS ABRASIONS TO HIS RIGHT HAND. NO GI SYMPTOMS LAST TETANUS 09/2020 PT DENIES METH / DRUG OR ALCOHOL USE TODAY OF NOTE, PT HAS POCKETS FULL OF DRUG PARAPHENALIA MULTIPLE ER VISITS, WITH 8 VISITS SINCE AUGUST OF THIS YEAR FOR VARIOUS COMPLAINTS. Location Injury Occurred: [address] (ALEXANDRA WEIR DO) Allergies and Home Medications Allergies Uncoded Allergies: BEE AND WASPS (Allergy, Unknown, 11/04/14) POISON YASMINE AND OAK (Allergy, Unknown, 11/04/14) Patient Home Medication List Home Medication List Reviewed: Yes (LORAINE JORDAN DO) Albuterol Sulfate (Ventolin Hfa) 1 Puff Puff, 2 PUFF IH Q4H PRN for SHORTNESS OF BREATH, (Reported) Entered as Reported by: LING GARVEY on 02/11/18 1107 Apixaban (Eliquis) 2.5 Mg Tablet, 2.5 MG PO BID Prescribed by: NAOMY BELTRÁN on 02/14/18 0839 Apixaban (Eliquis) 5 Mg Tablet, 5 MG PO BID Prescribed by: CMAELIA BRAN on 12/08/20 1459 Calcium Carbonate (Calcium) 500 Mg Tab.chew, 1,000 MG PO Q4H PRN for HEARTBURN, (Reported) Entered as Reported by: LING GARVEY on 02/11/18 1107 Cyclobenzaprine HCl (Cyclobenzaprine HCl) 10 Mg Tablet, 10 MG PO Q8H PRN for MUSCLE SPASMS, (Reported) Entered as Reported by: LING GARVEY on 02/11/18 110 Diphenhydramine HCl (Benadryl) 25 Mg Capsule, 50 MG PO Q6H PRN for ALLERGIC REACTION, (Reported) Entered as Reported by: LING GARVEY on 02/11/181106 Famotidine (Pepcid) 20 Mg Tablet, 20 MG PO DAILY Prescribed by: QUINN LYONS on 09/09/21 030 Levothyroxine Sodium (Levothyroxine Sodium) 100 Mcg Tablet, 100 MCG PO 2100, (Reported) Entered as Reported by: LING GARVEY on 02/11/181106 Omeprazole (Omeprazole) 20 Mg Capsule.dr, 20 MG PO BID Prescribed by: LAURE العلي on 03/12/222099 Ondansetron (Ondansetron Odt) 8 Mg Tab.rapdis, 8 MG PO Q6H Prescribed by: ALEXANDRA WEIR on 10/07/212032 Pantoprazole Sodium (Protonix) 40 Mg Tablet.dr, 40 MG PO DAILY Prescribed by: ALEXANDRA WEIR on 10/07/212032 Risperidone (Risperdal Consta) 12.5 Mg/2 Ml Disp.syrin, 12.5 MG IM EVERY 2 WEEKS, (Reported) Entered as Reported by: LING GARVEY on 02/11/18 1131 Sertraline HCl (Sertraline HCl) 100 Mg Tablet, 100 MG PO HS, (Reported) Entered as Reported by: LING GARVEY on 02/11/181106 Simvastatin (Simvastatin) 10 Mg Tablet, 10 MG PO HS, (Reported) Entered as Reported by: LING GARVEY on 02/11/18 115 Tetrahydrozoline HCl (Visine) 15 Ml Drops, 2 DROP OU Q6H PRN for EYE REDNESS, (Reported) Entered as Reported by: LING GARVEY on 02/11/181106 Review of Systems Review of Systems Constitutional: no symptoms reported Eyes: No Symptoms Reported Ears, Nose, Mouth, Throat: no symptoms reported Respiratory: no symptoms reported Cardiovascular: no symptoms reported Gastrointestinal: no symptoms reported Genitourinary: no symptoms reported Musculoskeletal: see HPI Skin: see HPI Psychiatric/Neurological: See HPI (ALEXANDRA WEIR DO) Past Hinczah-Ocpwmt-Srewja Hx Patient Social History Tobacco Use?: Yes Tobacco type used: Cigarettes Smoking Status: Current Everyday Smoker Substance use?: Yes Substance type: Methamphetamine Substance frequency: Daily Alcohol Use?: Yes Alcohol Frequency: Once in a while Pt feels they are or have been: No (ALEXANDRA WEIR DO) Immunizations Up To Date Tetanus Booster (TDap): Unknown First/Initial COVID19 Vaccinat: x2 Second COVID19 Vaccination Abdulkadir: RECEIVED, UNK WHEN Third COVID19 Vaccination Date: unknown (ALEXANDRA WEIR DO) Seasonal Allergies Seasonal Allergies: Yes (ALEXANDRA WEIR DO) Past Medical History Surgery/Hospitalization HX: left total knee, chronic chest pain, anxiety, personality disorder, mild MR, high cholesterol, hypothryoidism, right knee scope, gastritis, dvt, asthma Surgeries: Yes (LEFT TOTAL KNEE REPLACEMENT) Joint Replacement, Orthopedic Respiratory: Yes Asthma Cardiac: Yes ("CHRONIC CHEST PAIN"; DVT LEFT LEG 12/2020) Deep Vein Thrombosis, High Cholesterol Neurological: Yes (MILD MR) Genitourinary: No Gastrointestinal: No Musculoskeletal: Yes (LEFT KNEE REPLACEMENT; RIGHT KNEE SCOPE) Endocrine: Yes Hypothyroidsim HEENT: Yes (GLASSES) Loss of Vision: Bilateral Cancer: No 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) Anxiety, Personality Disorder Integumentary: Yes ( CELLULITIS LEFT LEG) Blood Disorders: No (ALEXANDRA WEIR DO) Family Medical History SOCIAL HISTORY: -SMOKES 1 PPD, ALSO VAPES NICOTINE DAILY -ETOH--QUIT DRINKING A YEAR AGO, PER PT 10/07/21 -DENIES DRUG USE, BUT HAS TESTED + FOR METH PAST SURGICAL HISTORY: -LEFT KNEE SURGERY -RIGHT KNEE SCOPE 02/[address] QUINTEROS (ALEXANDRA WEIR DO) Physical Exam Vital Signs Vital Signs - First Documented 03/17/22 05:26 Temp 35.3 Pulse 96 Resp 18 B/P (MAP) 122/88 (99) Pulse Ox 98 O2 Delivery Room Air (JULIANLORAINE Abhi DO) Vital Signs Capillary Refill : Less Than 3 Seconds (ALEXANDRA WEIR DO) Height, Weight, BMI Height: 5'10.00" Weight: 238lbs. 0.0oz. [id number]; 26.00 BMI Method:Stated General Appearance: WD/WN, no apparent distress, other (DIRTY, UNKEMPT, MALODOROUS. CONSTANT MOUTH MOVEMENTS) HEENT: PERRL/EOMI, other (EXTENSIVE DENTAL DECAY, WITH PIERCING TO LIP. ) Neck: other (IN CERVICAL COLLAR) Cardiovascular: regular rate, rhythm, no murmur Respiratory: chest non-tender, normal breath sounds, no respiratory distress, no accessory muscle use Gastrointestinal: normal bowel sounds, non tender, soft Back: other (DIFFUSE MID AND LOWER BACK TENDERNESS. PAIN TO AREA WITH MOVEMENT) Extremities: pedal edema (TRACE TO 1+ BILATERALLY. ), other (BILATERAL HIP TENDERNESS. DTR'S +2-3/4 BILATERALLY / EQUALLY IN ALL EXTREMITIES. PT IS ABLE TO MOVE LEGS--STATES IT HURTS HIS LEGS, HIS HIPS AND HIS BACK TO MOVE HIS LEGS. ) Neurologic/Psychiatric: alert, normal mood/affect, oriented x 3 Skin: cool (SKIN IS COOL TO TOUCH, WITH DECREASED CAP REFILL TO FINGERS AND TOES, BUT NO SIGNS OF FROSTBITE AT THIS TIME. ), other (DRY. NORMAL COLOR. ) (ALEXANDRA WEIR DO) [place] Coma Score Best Eye Response: (4) Open Spontaneously Best Verbal Response: (5) Oriented Best Motor Response: (6) Obeys Commands [place] Total: 15 (ALEXANDRA WEIR DO) Progress/Results/Core Measures Results/Orders Lab Results Laboratory Tests Test 03/17/22 05:36 Range/Units White Blood Count 12.9 H 4.3-11.0 10^3/uL Red Blood Count 4.35 4.30-5.52 10^6/uL Hemoglobin 13.4 13.3-17.7 g/dL Hematocrit 39 L 40-54 % Mean Corpuscular Volume 89 80-99 fL Mean Corpuscular Hemoglobin 31 25-34 pg Mean Corpuscular Hemoglobin Concent 35 32-36 g/dL Red Cell Distribution Width 12.4 10.0-14.5 % Platelet Count 326 130-400 10^3/uL Mean Platelet Volume 9.0 9.0-12.2 fL Immature Granulocyte % (Auto) 0 % Neutrophils (%) (Auto) 75 42-75 % Lymphocytes (%) (Auto) 14 12-44 % Monocytes (%) (Auto) 10 0-12 % Eosinophils (%) (Auto) 0 0-10 % Basophils (%) (Auto) 1 0-10 % Neutrophils # (Auto) 9.6 H 1.8-7.8 10^3/uL Lymphocytes # (Auto) 1.9 1.0-4.0 10^3/uL Monocytes # (Auto) 1.3 H 0.0-1.0 10^3/uL Eosinophils # (Auto) 0.0 0.0-0.3 10^3/uL Basophils # (Auto) 0.1 0.0-0.1 10^3/uL Immature Granulocyte # (Auto) 0.1 0.0-0.1 10^3/uL Erythrocyte Sedimentation Rate 12 0-15 MM/HR Prothrombin Time 14.6 12.2-14.7 SEC INR Comment 1.1 0.8-1.4 Activated Partial Thromboplast Time 36 H 24-35 SEC Sodium Level 135 135-145 MMOL/L Potassium Level 3.8 3.6-5.0 MMOL/L Chloride Level 101 98-107 MMOL/L Carbon Dioxide Level 21 21-32 MMOL/L Anion Gap 13 5-14 MMOL/L Blood Urea Nitrogen 24 H 7-18 MG/DL Creatinine 0.77 0.60-1.30 MG/DL Estimat Glomerular Filtration Rate 113 BUN/Creatinine Ratio 31 Glucose Level 127 H 70-105 MG/DL Calcium Level 9.7 8.5-10.1 MG/DL Corrected Calcium 9.6 8.5-10.1 MG/DL Magnesium Level 2.1 1.6-2.4 MG/DL Total Bilirubin 0.9 0.1-1.0 MG/DL Aspartate Amino Transf (AST/SGOT) 40 H 5-34 U/L Alanine Aminotransferase (ALT/SGPT) 26 0-55 U/L Alkaline Phosphatase 82 40-136 U/L Total Creatine Kinase 897 H 30-200 U/L Creatine Kinase MB 27.2 *H <6.6 NG/ML Myoglobin 596.5 H 10.0-92.0 NG/ML C-Reactive Protein High Sensitivity 8.78 H 0.00-0.50 MG/DL Total Protein 7.1 6.4-8.2 GM/DL Albumin 4.1 3.2-4.5 GM/DL Amylase Level 32 25-125 U/L Serum Alcohol < 10 <10 MG/DL (LORAINE JORDAN DO) My Orders Orders - LORAINE JORDAN DO Acetaminophen Tablet (Tylenol Tablet) (03/17/22 07:30) Acetaminophen Tablet (Tylenol Tablet) (03/17/22 07:21) (LORAINE JORDAN DO) Medications Given in ED Current Medications Medications Dose Ordered Sig/Sujatha Route Start Time Stop Time Status Last Admin Dose Admin Acetaminophen 1,000 mg ONCE ONCE PO 03/17/22 07:30 03/17/22 07:31 DC 03/17/22 07:22 1,000 MG Iohexol 100 ml ONCE ONCE IV 03/17/22 06:45 03/17/22 06:46 DC 03/17/22 06:42 80 ML Sodium Chloride 10 ml NEEDED PRN IV 03/17/22 06:45 03/17/22 08:30 DC 03/17/22 06:43 10 ML Sodium Chloride 100 ml ONCE ONCE IV 03/17/22 06:45 03/17/22 06:46 DC 03/17/22 06:43 80 ML (LORAINE JORDAN DO) Vital Signs/I&O 03/17/22 03/17/22 05:26 07:29 Temp 35.3 Pulse 96 61 Resp 18 17 B/P (MAP) 122/88 (99) 125/83 Pulse Ox 98 99 O2 Delivery Room Air Room Air (LORAINE JORDAN DO) Blood Pressure Mean: 99 Progress Progress Note : Progress Note 0600--CARE TURNED OVER TO DR. JORDAN, ALL STUDIES PENDING HAVE REVIEWED MULTIPLE OLD CHARTS--NEARLY ALL ARE ER RECORDS. (ALEXANDRA WEIR DO) Departure Communication (Admissions) Patient is hemodynamically stable, alert, oriented on my exam. On reexamination her rigid cervical collar at 0 710 after negative radiology read of the cervical spine CT. Repeat neurologic exam shows full range of motion in all extremities both active and passive. No pain in these areas. He has no weakness in his legs. No saddle anesthesia. Voided while here, no urinary retention. No evidence for cauda equina or acute cord syndrome at this time. CT scanning of his entire spine is negative as well as his chest except for some old scarring from likely previous infection. He was advised that this and the need for repeat CT scan in 3 months. He states understanding. His temperature has improved with blankets alone, no active rewarming techniques needed. Labs obtained relatively unremarkable for any acute concerns. We will plan discharge in stable condition with supportive care and close follow-up. (LORAINE JORDAN DO) Impression Primary Impression: Fall Qualified Codes: W19.XXXA - Unspecified fall, initial encounter Additional Impressions: Low back pain Qualified Codes: M54.50 - Low back pain, unspecified Hypothermia Qualified Codes: T68.XXXA - Hypothermia, initial encounter Disposition: HOME, SELF-CARE Condition: Stable Departure-Patient Inst. Referrals: [facility] [place] Primary Care Physician Patient Instructions: Low Back Pain ED, Hypothermia Add. Discharge Instructions: You were seen in the emergency department today after a reported fall. No s erious injuries are identified. Your labs are reassuring. You have some scarring in one of your lungs, likely from an old infection. This does appear benign based on radiology reads but they recommend a follow-up CT scan in 3 months. Please follow-up with your primary doctor for any nonemergent needs to return to the emergency department for any severe concerns. All discharge instructions reviewed with patient and/or family. Voiced understanding. ALEXANDRA WEIR DO Mar 17, 2022 06:08 LORAINE JORDAN DO Mar 17, 2022 07:14
[2022-03-17 06:20] LABS: CREATINE KINASE MB 27.2 NG/ML (<6.6)
--- NOTE | 2022-03-17 06:37 | Diagnostic Imaging Report ---
PROCEDURE: CT head and CT cervical spine without contrast. TECHNIQUE: Multiple contiguous axial images were obtained through the brain and cervical spine without the use of intravenous contrast. Sagittal and coronal reformations through the cervical spine were then performed. Auto Exposure Controls were utilized during the CT exam to meet ALARA standards for radiation dose reduction. INDICATION: Fall. Found down after 2 hours. Head and neck pain. COMPARISON: 11/05/2021. 10/07/2021. FINDINGS: CT head: No large acute territorial ischemia, mass, or hemorrhage. No midline shift or mass effect. The ventricles, cortical sulci, and basilar cisterns are patent and unremarkable. The calvarium is intact. The visualized paranasal sinuses are clear. CT cervical spine: No acute fracture or dislocation is seen in the cervical spine. No focal osseous lesions. Vertebral body heights are well-maintained. The craniocervical junction is well-maintained. Moderate degenerative changes are seen in the cervical spine with disc osteophyte complexes and uncovertebral arthropathy. Soft tissues of the neck are unremarkable. Focal opacity is seen in the posterior aspect of the right upper lobe with central cavitation. IMPRESSION: 1. No hemorrhage or focal intra-axial mass. No CT evidence of large acute territorial ischemia. 2. No acute fracture or dislocation in the cervical spine. 3. Nonspecific focal opacity in the posterior aspect of the right upper lobe with central cavitation. This was not present on the prior exam from 10/07/2021. Consider dedicated chest CT to further evaluate. Dictated by: Dictated on workstation # [id number]
--- NOTE | 2022-03-17 06:41 | Diagnostic Imaging Report ---
PROCEDURE: CT thoracic and lumbar spine without contrast. TECHNIQUE: Multiple contiguous axial images were obtained through the thoracic and lumbar spine without the use of intravenous contrast. Sagittal and coronal reformations were then performed. All CT scans use one or more of the following dose optimizing techniques: automated exposure control, MA and/or KvP adjustment based on a patient size and exam type, or iterative reconstruction. INDICATION: Fall. Found down for 2 hours. Mid and lower back pain. COMPARISON: 10/07/2021. FINDINGS: No acute fracture or dislocation is seen in the thoracic and lumbar spine. Alignment is anatomic. No focal osseous lesions are seen. No evidence of acute spinal canal stenosis. No high density material is seen within spinal canal. The paraspinal soft tissues are unremarkable. The focal area of consolidation with central cavitation is again seen in the posterior aspect of the right upper lobe. IMPRESSION: 1. No acute fracture or dislocation in the thoracic and lumbar spine. 2. Focal consolidation with central cavitation in the posterior aspect of the right upper lobe. The remainder of the lungs appear clear. This can represent sequelae of inflammatory/infectious process. Given the lack of additional opacities this may be subacute to chronic. Recommend correlation with patient history. Dictated by: Dictated on workstation # [id number]
[2022-03-17] MEDS ORDERED: CATHETER FLUSH 10 ML SYR IV PRN (06:45)
[2022-03-17] MEDS ORDERED: IOHEXOL 350 MG/ML 100 ML (OMNIPAQUE 350) VIAL IV ONE (06:45)
[2022-03-17] MEDS ORDERED: NS 100 ML (IVPB) BAG IV ONE (06:45)
--- NOTE | 2022-03-17 06:48 | Diagnostic Imaging Report ---
EXAMINATION: CT chest, abdomen and pelvis with intravenous contrast. TECHNIQUE: Multiple contiguous axial images were obtained through the chest, abdomen and pelvis after the uneventful administration of intravenous contrast. All CT scans use one or more of the following dose optimizing techniques: automated exposure control, MA and/or KvP adjustment based on patient size and exam type or iterative reconstruction. HISTORY: Found down. Fall. Generalized torso pain. COMPARISON: 10/07/2021. FINDINGS: CT CHEST: The heart size is within normal limits. No pericardial effusion is present. There is no mediastinal, hilar, or axillary lymphadenopathy. A small area of consolidative opacities is seen with central cavitation in the posterior aspect of the right upper lobe measuring 1.2 cm. No other focal consolidations are seen. No suspicious pulmonary nodules. No central endobronchial obstructing lesions are identified. There are no pleural effusions or pneumothorax. The osseous structures demonstrate no acute abnormalities. CT ABDOMEN AND PELVIS: The liver, spleen, pancreas, adrenal glands, and kidneys have a normal appearance. There is no pathologically enlarged mesenteric or retroperitoneal adenopathy. The bowel loops are nondilated. The appendix is visualized in the right lower quadrant and has a normal appearance. There is no free fluid or free air. The osseous structures demonstrate no acute abnormalities. Ureters and bladder have a normal appearance. There is no free air, loculated collection, or adenopathy in the pelvis. IMPRESSION: 1. No acute abnormalities in the chest, abdomen and pelvis. 2. Small area of consolidative opacities with central cavitation in the posterior aspect of the right upper lobe. This measures 1.2 cm. Findings are favored represent sequelae of infection. Recommend followup with chest CT in 3 months to reevaluate. Dictated by: Dictated on workstation # [id number]
--- NOTE | 2022-03-17 07:00 | Diagnostic Imaging Report ---
INDICATION: Trauma, reportedly tripped with fall and prolonged downtime of 1.[address] Pain[address] TECHNIQUE: Single view chest 6:58 AM. CORRELATION STUDY: 11/05/2021 FINDINGS: The heart size, mediastinal configuration and pulmonary vascularity are within normal limits. The lungs are clear with no consolidating infiltrate. There is no significant effusion or pneumothorax. Old posterior right 5th and 6th rib fracture deformities. IMPRESSION: 1. Negative for acute traumatic abnormality of the chest. Dictated by: Dictated on workstation # [id number]
--- NOTE | 2022-03-17 07:02 | Diagnostic Imaging Report ---
INDICATION: Trauma, fall with prolonged downtime in the road. Pain. TECHNIQUE: AP pelvis 6:57 AM CORRELATION STUDY: None FINDINGS: The pelvis demonstrates no evidence for acute fracture. The pectineal lines and obturator rings are maintained. Pubic symphysis and SI joints are unremarkable. Hips unremarkable. Contrast noted within the urinary bladder and distal right ureter. IMPRESSION: Negative for acute traumatic abnormality of the pelvis. Dictated by: Dictated on workstation # [id number]
[2022-03-17] MEDS ORDERED: ACETAMINOPHEN 500 MG TAB (TYLENOL) ONE (07:21)
[2022-03-17 07:29] VITALS: BP 125/83
[2022-03-17] MEDS ORDERED: ACETAMINOPHEN 500 MG TAB (TYLENOL) PO ONE (07:30)
== END 2022-03-17 08:20 | disposition home or self-care (01) ==
LOC: EDUNIT# 05:26 → ER 05:27
DX: T68.XXXA Hypothermia, initial encounter (principal); M54.50 Low back pain, unspecified; F17.210 Nicotine dependence, cigarettes, uncomplicated; W01.0XXA Fall on same level from slipping, tripping and stumbling without subsequent striking against object, initial encounter; Y93.01 Activity, walking, marching and hiking; Y92.410 Unspecified street and highway as the place of occurrence of the external cause
CPT/HCPCS: 70450; 71045; 71260; 72125; 72128; 72131; 72170; 74177; 80053; 82150; 82550; 82553; 83735; 83874; 85025; 85610; 85652; 85730; 86141; 93041; 99283; G0480; 36415; 80320

== ENCOUNTER 2022-04-13 21:31 | Emergency (ER) | payer MEDICARE, MEDICAID ==
[~2022-04-13] VITALS: Ht 175.3 cm; Wt 72.6 kg
--- NOTE | 2022-04-13 21:50 | ED Chest Pain ---
General Chief Complaint: Chest Pain Stated Complaint: CHEST PAIN, SOA Nursing Triage Note: pt to room by [facility]. ems reports pt started having chest pain and soa at approx 1900 this evening. states he was not doing anything strenuous. states he also felt dizzy at this time. ems reports pt pain went from 10/10 to 5/10 after 4 baby ASA. ems reports putting 1 inch nitro paste to left chest. pt pain is still 5/10 with nitro paste on. pt is A&Ox4, speech normal on arrival Source: patient (SOMEWHAT LIMITED HISTORIAN), old records (MOST OF PAST MEDICAL HISTORY IS FROM OLD RECORDS, PT DOES NOT VOLUNTEER ANY INFORMATION) History of Present Illness Date Seen by Provider: Apr 13, 2022 Time Seen by Provider: 21:33 Initial Comments PT ARRIVES VIA EMS--PT IS HOMELESS C/O LEFT UPPER CHEST PAIN SINCE 1900 TONIGHT PAIN IS SHARP AND STABBING AND RATES PAIN 10/10 WHEN IT BEGAN NO RADIATION OF PAIN NOTHING WORSENS OR IMPROVES PAIN ALSO C/O SHORTNESS OF BREATH WITH ONSET OF PAIN, AND HAS FELT DIZZY NO SWEATS NO SYNCOPE NO PALPITATIONS NO NAUSEA/VOMITING/DIARRHEA OR ABDOMINAL PAIN NO COUGH/CONGESTION/URI SYMPTOMS AND DENIES FEVER HE DENIES SWELLING IN LEGS OR FEET OR PAIN IN CALVES. PT STATES HE HAS HAD PAIN SIMILAR TO THIS IN THE PAST, BUT NEVER SOUGHT CARE ON REVIEW OF PRIOR RECORDS PT HAS STATED THAT HE HAS "CHRONIC CHEST PAIN" EMS GAVE 4 BABY ASPIRINS, AND PT STATES PAIN WENT DOWN TO 5/10 AFTER ASPIRIN EMS THEN PLACED NTG PASTE 1"--PT STATES NO IMPROVEMENT WITH NITROPASTE PT STATES PAIN IS STILL 5/10 ON ARRIVAL PT DOES NOT VOLUNTEER INFORMATION, BUT ON DIRECT QUESTIONING, PT DOES HAVE HIST ORY OF DVT IN LEFT LEG IN 2020, AND WAS PRESCRIBED ELIQUIS, STATES HE RAN OUT OF MEDICATION "A YEAR OR SO AGO" AND NEVER FOLLOWED UP PT SMOKES 4 PPD HE DENIES DRUG USE, BUT PT HAS LONGSTANDING HISTORY OF DRUG ABUSE, ESPECIALLY METHAMPHETAMINES, AND ON PRIOR VISIT HERE 03/17/22, HE WAS FOUND TO HAVE POCKETS FULL OF DRUG PARAPHENALIA. HE ADMITS TO "OCCASIONAL" ALCOHOL USE, DENIES ANY DRINKING TODAY. PT HAS HAD MULTIPLE ER VISITS, VARIOUS COMPLAINTS. PCP: JESSICA-K Allergies and Home Medications Allergies Uncoded Allergies: BEE AND WASPS (Allergy, Unknown, 9/3/15) POISON YASMINE AND OAK (Allergy, Unknown, 11/04/14) Patient Home Medication List Albuterol Sulfate (Ventolin Hfa) 1 Puff Puff, 2 PUFF IH Q4H PRN for SHORTNESS OF BREATH, (Reported) Entered as Reported by: LING GARVEY on 02/11/18 110 Apixaban (Eliquis) 2.5 Mg Tablet, 2.5 MG PO BID Prescribed by: NAOMY BELTRÁN on 02/14/18 0839 Apixaban (Eliquis) 5 Mg Tablet, 5 MG PO BID Prescribed by: CAMELIA BRAN on 12/08/20 1459 Calcium Carbonate (Calcium) 500 Mg Tab.chew, 1,000 MG PO Q4H PRN for HEARTBURN, (Reported) Entered as Reported by: LING GARVEY on 02/11/181106 Cyclobenzaprine HCl (Cyclobenzaprine HCl) 10 Mg Tablet, 10 MG PO Q8H PRN for MUSCLE SPASMS, (Reported) Entered as Reported by: LING GARVEY on 02/11/181106 Diphenhydramine HCl (Benadryl) 25 Mg Capsule, 50 MG PO Q6H PRN for ALLERGIC REACTION, (Reported) Entered as Reported by: LING GARVEY on 02/11/181106 Famotidine (Pepcid) 20 Mg Tablet, 20 MG PO DAILY Prescribed by: QUINN LYONS on 09/09/21 030 Levothyroxine Sodium (Levothyroxine Sodium) 100 Mcg Tablet, 100 MCG PO 2100, (Reported) Entered as Reported by: LING GARVEY on 02/11/18 110 Omeprazole (Omeprazole) 20 Mg Capsule.dr, 20 MG PO BID Prescribed by: LAURE العلي on 03/12/222099 Ondansetron (Ondansetron Odt) 8 Mg Tab.rapdis, 8 MG PO Q6H Prescribed by: ALEXANDRA EWIR on 10/07/212032 Pantoprazole Sodium (Protonix) 40 Mg Tablet.dr, 40 MG PO DAILY Prescribed by: ALEXANDRA WEIR on 10/07/212032 Risperidone (Risperdal Consta) 12.5 Mg/2 Ml Disp.syrin, 12.5 MG IM EVERY 2 WEEKS , (Reported) Entered as Reported by: LING GARVEY on 02/11/18 1131 Sertraline HCl (Sertraline HCl) 100 Mg Tablet, 100 MG PO HS, (Reported) Entered as Reported by: LING GARVEY on 02/11/18 1107 Simvastatin (Simvastatin) 10 Mg Tablet, 10 MG PO HS, (Reported) Entered as Reported by: LING GARVEY on 02/11/18 1153 Tetrahydrozoline HCl (Visine) 15 Ml Drops, 2 DROP OU Q6H PRN for EYE REDNESS, (Reported) Entered as Reported by: LING GARVEY on 02/11/18 1107 Review of Systems Review of Systems Constitutional: see HPI; No diaphoresis; dizziness; No fever EENTM: No Symptoms Reported Respiratory: See HPI; Denies Cough, Denies Orthopnea; Shortness of Air Cardiovascular: See HPI, Chest Pain; Denies Edema, Denies Irregular Heart Rate; Lightheadedness; Denies Palpitations, Denies Syncope Gastrointestinal: No Symptoms Reported; Denies Abdominal Pain, Denies Nausea, Denies Vomiting Genitourinary: No Symptoms Reported Musculoskeletal: no symptoms reported Psychiatric/Neurological: No Symptoms Reported Endocrine: No Symptoms Reported Hematologic/Lymphatic: No Symptoms Reported Past Pswhhdt-Otannt-Wzfbey Hx Patient Social History Tobacco Use?: Yes Tobacco type used: Cigarettes Smoking Status: Current Everyday Smoker Substance use?: Yes Substance type: Methamphetamine Substance frequency: Daily Alcohol Use?: Yes Alcohol type: Beer, Hard Liquor Immunizations Up To Date Tetanus Booster (TDap): Unknown First/Initial COVID19 Vaccinat: x2 Second COVID19 Vaccination Abdulkadir: RECEIVED, UNK WHEN Third COVID19 Vaccination Date: unknown Seasonal Allergies Seasonal Allergies: Yes Past Medical History Surgery/Hospitalization HX: left total knee, chronic chest pain, anxiety, personality disorder, mild MR, high cholesterol, hypothryoidism, right knee scope, gastritis, dvt, asthma Surgeries: Yes (LEFT TOTAL KNEE REPLACEMENT) Joint Replacement, Orthopedic Respiratory: Yes Asthma Cardiac: Yes ("CHRONIC CHEST PAIN"; DVT LEFT LEG 12/2020) Deep Vein Thrombosis, High Cholesterol Neurological: Yes (MILD MR) Genitourinary: No Gastrointestinal: Yes (GASTRITIS/GERD) Gastroesophageal Reflux Musculoskeletal: Yes (LEFT KNEE REPLACEMENT; RIGHT KNEE SCOPE) Endocrine: Yes Hypothyroidsim HEENT: Yes (GLASSES) Loss of Vision: Bilateral Cancer: No 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; POLYSUBSTANCE ABUSE) Anxiety, Personality Disorder Integumentary: Yes ( CELLULITIS LEFT LEG) Blood Disorders: No Family Medical History SOCIAL HISTORY: -SMOKES 4 PPD, ALSO VAPES NICOTINE DAILY -ETOH--QUIT DRINKING A YEAR AGO, PER PT 10/07/21 -DENIES DRUG USE, BUT HAS TESTED + FOR METH ON MULTIPLE VIWSITS PAST SURGICAL HISTORY: -LEFT KNEE SURGERY -RIGHT KNEE SCOPE 02/[address] QUINTEROS PT HAD LEFT LEG DVT IN 2020, NON-COMPLIANT WITH MEDICATIONS Physical Exam Vital Signs Vital Signs - First Documented 04/13/22 21:33 Temp 37.0 Pulse 88 Resp 14 B/P (MAP) 127/77 (94) Pulse Ox 96 Capillary Refill : Height, Weight, BMI Height: 5'10.00" Weight: 238lbs. 0.0oz. 107.771579ez; 23.00 BMI Method:Stated Focused Exam Lactate Level 04/13/22 21:40: Lactic Acid Level 1.14 Lactic Acid Level Laboratory Tests Test 04/13/22 21:40 Lactic Acid Level 1.14 MMOL/L (0.50-2.00) Progress/Results/Core Measures Results/Orders Lab Results Laboratory Tests Test 04/13/22 21:40 04/13/22 21:44 04/13/22 22:08 Range/Units White Blood Count 13.0 H 4.3-11.0 10^3/uL Red Blood Count 4.53 4.30-5.52 10^6/uL Hemoglobin 14.1 13.3-17.7 g/dL Hematocrit 42 40-54 % Mean Corpuscular Volume 92 80-99 fL Mean Corpuscular Hemoglobin 31 25-34 pg Mean Corpuscular Hemoglobin Concent 34 32-36 g/dL Red Cell Distribution Width 13.4 10.0-14.5 % Platelet Count 322 130-400 10^3/uL Mean Platelet Volume 9.1 9.0-12.2 fL Immature Granulocyte % (Auto) 0 % Neutrophils (%) (Auto) 75 42-75 % Lymphocytes (%) (Auto) 17 12-44 % Monocytes (%) (Auto) 5 0-12 % Eosinophils (%) (Auto) 3 0-10 % Basophils (%) (Auto) 1 0-10 % Neutrophils # (Auto) 9.8 H 1.8-7.8 10^3/uL Lymphocytes # (Auto) 2.2 1.0-4.0 10^3/uL Monocytes # (Auto) 0.6 0.0-1.0 10^3/uL Eosinophils # (Auto) 0.3 0.0-0.3 10^3/uL Basophils # (Auto) 0.1 0.0-0.1 10^3/uL Immature Granulocyte # (Auto) 0.0 0.0-0.1 10^3/uL Percent Immature Platelet Fraction 1.6 0.0-7.6 % Erythrocyte Sedimentation Rate 6 0-15 MM/HR Prothrombin Time 13.4 12.2-14.7 SEC INR Comment 1.0 0.8-1.4 Activated Partial Thromboplast Time 33 24-35 SEC D-Dimer 0.43 0.00-0.49 UG/ML Sodium Level 138 135-145 MMOL/L Potassium Level 4.0 3.6-5.0 MMOL/L Chloride Level 105 98-107 MMOL/L Carbon Dioxide Level 19 L 21-32 MMOL/L Anion Gap 14 5-14 MMOL/L Blood Urea Nitrogen 16 7-18 MG/DL Creatinine 0.73 0.60-1.30 MG/DL Estimat Glomerular Filtration Rate 114 BUN/Creatinine Ratio 22 Glucose Level 105 70-105 MG/DL Lactic Acid Level 1.14 0.50-2.00 MMOL/L Calcium Level 9.1 8.5-10.1 MG/DL Corrected Calcium 9.0 8.5-10.1 MG/DL Magnesium Level 2.1 1.6-2.4 MG/DL Total Bilirubin 0.4 0.1-1.0 MG/DL Aspartate Amino Transf (AST/SGOT) 37 H 5-34 U/L Alanine Aminotransferase (ALT/SGPT) 41 0-55 U/L Alkaline Phosphatase 85 40-136 U/L Total Creatine Kinase 366 H 30-200 U/L Creatine Kinase MB 11.2 *H <6.6 NG/ML Troponin I < 0.028 <0.028 NG/ML C-Reactive Protein High Sensitivity 0.19 0.00-0.50 MG/DL B-Type Natriuretic Peptide 16.0 <100.0 PG/ML Total Protein 7.2 6.4-8.2 GM/DL Albumin 4.1 3.2-4.5 GM/DL Amylase Level 34 25-125 U/L Lipase 15 8-78 U/L Serum Alcohol < 10 <10 MG/DL Influenza Type A (RT-PCR) Not Detected Not Detecte Influenza Type B (RT-PCR) Not Detected Not Detecte SARS-CoV-2 RNA (RT-PCR) Not Detected Not Detecte Urine Color YELLOW Urine Clarity CLEAR Urine pH 6.5 5-9 Urine Specific [place] 1.025 H 1.016-1.022 Urine Protein NEGATIVE NEGATIVE Urine Glucose (UA) NEGATIVE NEGATIVE Urine Ketones NEGATIVE NEGATIVE Urine Nitrite NEGATIVE NEGATIVE Urine Bilirubin NEGATIVE NEGATIVE Urine Urobilinogen 1.0 < = 1.0 MG/DL Urine Leukocyte Esterase NEGATIVE NEGATIVE Urine RBC (Auto) NEGATIVE NEGATIVE Urine RBC 0-2 /HPF Urine WBC 0-2 /HPF Urine Squamous Epithelial Cells 0-2 /HPF Urine Crystals NONE /LPF Urine Bacteria TRACE /HPF Urine Casts NONE /LPF Urine Mucus SMALL H /LPF Urine Culture Indicated NO Urine Opiates Screen NEGATIVE NEGATIVE Urine Oxycodone Screen NEGATIVE NEGATIVE Urine Methadone Screen NEGATIVE NEGATIVE Urine Propoxyphene Screen NEGATIVE NEGATIVE Urine Barbiturates Screen NEGATIVE NEGATIVE Ur Tricyclic Antidepressants Screen NEGATIVE NEGATIVE Urine Phencyclidine Screen NEGATIVE NEGATIVE Urine Amphetamines Screen POSITIVE H NEGATIVE Urine Methamphetamines Screen POSITIVE H NEGATIVE Urine Benzodiazepines Screen NEGATIVE NEGATIVE Urine Cocaine Screen NEGATIVE NEGATIVE Urine Cannabinoids Screen NEGATIVE NEGATIVE My Orders Orders - ALEXANDRA WEIR DO Ed Iv/Invasive Line Start (04/13/22 21:33) Ekg Tracing (04/13/22 21:33) O2 (04/13/22 21:33) Monitor-Rhythm Ecg Trace Only (04/13/22 21:33) Amylase (04/13/22 21:33) Bnp [place] (04/13/22 21:33) Comprehensive Metabolic Panel (04/13/22 21:33) Creatine Kinase (04/13/22 21:33) Creatine Kinase Mb (04/13/22 21:33) Hs C Reactive Protein (04/13/22 21:33) Fibrin Degradation Products (04/13/22 21:33) Lactic Acid Analyzer (04/13/22 21:33) Lipase (04/13/22 21:33) Magnesium (04/13/22 21:33) Protime With Inr (04/13/22 21:33) Partial Thromboplastin Time (04/13/22 21:33) Erythrocyte Sedimentation Rate (04/13/22 21:33) Troponin I Rut (04/13/22 21:33) Chest 1 View, Ap/Pa Only (04/13/22 21:33) Covid 19 Inhouse Test (04/13/22 21:33) Influenza A And B By Pcr (04/13/22 21:33) Isolation Central Supply Req (04/13/22 21:33) Alcohol (04/13/22 21:47) Drug Screen Stat (Urine) (04/13/22 21:47) Ua Culture If Indicated (04/13/22 21:47) Ketorolac Injection (Toradol Injection) (04/13/22 22:00) Cbc With Automated Diff (04/13/22 22:13) Ct [place] Chest/Noang Abd-Pelv W (04/13/22 22:28) Iohexol Injection (Omnipaque 350 Mg/Ml 1 (04/13/22 23:00) Received Contrast (Hold Metformin- Contr (04/13/22 23:00) Ns (Ivpb) (Sodium Chloride 0.9% Ivpb Bag (04/13/22 23:00) Medications Given in ED Current Medications Medications Dose Ordered Sig/Sujatha Route Start Time Stop Time Status Last Admin Dose Admin Ketorolac Tromethamine 30 mg ONCE ONCE IVP 04/13/22 22:00 04/13/22 22:01 DC 04/13/22 21:59 30 MG Vital Signs/I&O 04/13/22 21:33 Temp 37.0 Pulse 88 Resp 14 B/P (MAP) 127/77 (94) Pulse Ox 96 Blood Pressure Mean: 94 Progress Progress Note : Progress Note BP DOWN TO 99 SYSTOLIC, NITROPASTE REMOVED AND BP IMMEDIATELY UP TO > 100 SYSTOLIC Departure Impression Primary Impression: Chest pain Additional Impression: Methamphetamine addiction Disposition: HOME, SELF-CARE Condition: Improved Departure-Patient Inst. Decision time for Depature: 23:42 Referrals: [facility] (PCP/Family) Primary Care Physician Patient Instructions: Chest Pain (DC), Methamphetamine, OUTPT SUBSTANCE ABUSE RESOURCE Add. Discharge Instructions: TYLENOL NEEDED FOR PAIN NO DRUGS, NO SMOKING, NO ALCOHOL FOLLOW UP WITH [facility] IN 1-2 DAYS FOR FURTHER CARE RETURN TO ER IF SYMPTOMS WORSEN All discharge instructions reviewed with patient and/or family. Voiced understanding. ALEXANDRA WEIR DO Apr 13, 2022 21:50
[2022-04-13] MEDS ORDERED: KETOROLAC 30 MG/ML VIAL IVP ONE (22:00)
[2022-04-13 22:13] LABS: ALBUMIN 4.1 GM/DL (3.2-4.5); CHLORIDE 105 MMOL/L (98-107); SODIUM 138 MMOL/L (135-145)
[2022-04-13 22:14] LABS: AMYLASE 34 U/L (25-125); CALCIUM 9.1 MG/DL (8.5-10.1)
[2022-04-13 22:15] LABS: GLUCOSE 105 MG/DL (70-105); TOTAL PROTEIN 7.2 GM/DL (6.4-8.2)
[2022-04-13 22:15] LABS: BILIRUBIN,URINE NEGATIVE (NEGATIVE); CLARITY,URINE CLEAR; COLOR,URINE YELLOW; GLUCOSE, URINE (UA) NEGATIVE (NEGATIVE); KETONES,URINE NEGATIVE (NEGATIVE); LEUKOCYTE ESTERASE ,URINE NEGATIVE (NEGATIVE); NITRITE,URINE NEGATIVE (NEGATIVE); PH,URINE 6.5 (5-9); PROTEIN,URINE NEGATIVE (NEGATIVE)
[2022-04-13 22:16] LABS: CARBON DIOXIDE 19 MMOL/L (21-32); FIBRIN DEGRADATION PRODUCTS 0.43 UG/ML (0.00-0.49); PROTHROMBIN TIME PATIENT 13.4 SEC (12.2-14.7)
[2022-04-13 22:17] LABS: BILIRUBIN,TOTAL 0.4 MG/DL (0.1-1.0)
[2022-04-13 22:19] LABS: ALKALINE PHOSPHATASE 85 U/L (40-136); CREATININE SERUM 0.73 MG/DL (0.60-1.30); GFR ESTIMATED 114
[2022-04-13 22:20] LABS: BASOPHILS # (AUTO) 0.1 10^3/uL (0.0-0.1); BASOPHILS % (AUTO) 1 % (0-10); BUN/CREATININE RATIO 22; EOSINOPHILS # (AUTO) 0.3 10^3/uL (0.0-0.3); EOSINOPHILS % (AUTO) 3 % (0-10); HEMATOCRIT 42 % (40-54); HEMOGLOBIN 14.1 g/dL (13.3-17.7); LYMPHOCYTES # (AUTO) 2.2 10^3/uL (1.0-4.0); LYMPHOCYTES % (AUTO) 17 % (12-44); MEAN CORPUSCULAR HEMOGLOBIN 31 pg (25-34); MEAN CORPUSCULAR HGB CONC 34 g/dL (32-36); MEAN CORPUSCULAR VOLUME 92 fL (80-99); MEAN PLATELET VOLUME 9.1 fL (9.0-12.2); MONOCYTES # (AUTO) 0.6 10^3/uL (0.0-1.0); MONOCYTES % (AUTO) 5 % (0-12); NEUTROPHILS # (AUTO) 9.8 10^3/uL (1.8-7.8); NEUTROPHILS % (AUTO) 75 % (42-75); PLATELET COUNT 322 10^3/uL (130-400)
[2022-04-13 22:22] LABS: ALANINE AMINOTRANSFERASE 41 U/L (0-55); MAGNESIUM 2.1 MG/DL (1.6-2.4)
[2022-04-13 22:23] LABS: CREATINE KINASE 366 U/L (30-200); LIPASE 15 U/L (8-78)
[2022-04-13 22:26] LABS: BACTERIA,URINE TRACE /HPF; RBC,URINE 0-2 /HPF; SQUAMOUS EPITHELIAL CELL,UR 0-2 /HPF; WBC,URINE 0-2 /HPF
[2022-04-13 22:29] LABS: AMPHETAMINE SCREEN, URINE POSITIVE (NEGATIVE); BARBITURATE SCREEN URINE NEGATIVE (NEGATIVE); BENZODIAZEPINES SCREEN URINE NEGATIVE (NEGATIVE); CANNABINOID SCREEN, URINE NEGATIVE (NEGATIVE); COCAINE SCREEN URINE NEGATIVE (NEGATIVE); METHADONE STAT NEGATIVE (NEGATIVE); OPIATE SCREEN URINE NEGATIVE (NEGATIVE); OXYCODONE STAT NEGATIVE (NEGATIVE); PROPOXYPHENE STAT NEGATIVE (NEGATIVE); TRICYCLIC ANTIDEPRESSANTS SCRE NEGATIVE (NEGATIVE)
[2022-04-13 22:47] LABS: CREATINE KINASE MB 11.2 NG/ML (<6.6)
[2022-04-13] MEDS ORDERED: HOLD METFORMIN - RECEIVED CONTRAST 20 ML VIAL IV SCH (23:00)
[2022-04-13] MEDS ORDERED: NS 100 ML (IVPB) BAG IV ONE (23:00)
[2022-04-13] MEDS ORDERED: IOHEXOL 350 MG/ML 100 ML (OMNIPAQUE 350) VIAL IV ONE (23:00)
[2022-04-13 23:42] VITALS: BP 104/71
--- NOTE | 2022-04-14 06:49 | Diagnostic Imaging Report ---
EXAMINATION: CT angiography of the chest, CT of the abdomen and pelvis. TECHNIQUE: Contrast enhanced thin section helical images were obtained through the chest, abdomen and pelvis with intravenous contrast timed for the optimal opacification of the arterial structures of the chest per CTA protocol. Post-processing, reconstructions and interpretation of angiographic images of the vessels was performed. 3D MIP reconstructions were performed and reviewed. All CT scans use one or more of the following dose optimizing techniques: automated exposure control, MA and/or KvP adjustment based on a patient size and exam type, or iterative reconstruction. HISTORY: Dyspnea, chest pain COMPARISON: 03/17/2022 FINDINGS: Vascular: There are no filling defects within the pulmonary arteries. The thoracic aorta is normal in caliber. Thyroid: The thyroid is normal. Mediastinum: Heart size is normal without significant pericardial effusion. No suspicious lymphadenopathy. Lungs and airways: The lungs are clear without consolidation, pleural effusion, or pneumothorax. There is atelectasis within the dependent lungs. The airways are normal. Solid organs: The liver is normal without focal lesion. The gallbladder is normal. There is no biliary ductal dilation. Pancreas is normal. Spleen is normal. Adrenal glands are normal. The kidneys are normal without hydronephrosis. Bowel: The stomach and small bowel are normal without obstruction. The colon and appendix are normal. Peritoneum: There is no intraperitoneal free fluid or free air. No suspicious lymphadenopathy. Vasculature: Normal without aneurysm. Musculoskeletal: Degenerative changes of the spine without suspicious osseous lesion or compression fracture. Pelvis: The prostate gland is normal. The urinary bladder is normal. IMPRESSION: 1. No findings of pulmonary embolus. 2. No acute abnormality in the chest, abdomen, or pelvis. 3. Agree with preliminary interpretation. Dictated by: Dictated on workstation # [id number]
--- NOTE | 2022-04-14 07:32 | Diagnostic Imaging Report ---
EXAMINATION: Chest 1 view HISTORY: Chest pain COMPARISON: 03/17/2022 FINDINGS: Heart size and pulmonary vasculature are normal. The lungs are clear without consolidation, pleural effusion, or pneumothorax. The osseous structures are intact. Chronic right rib fracture. IMPRESSION: 1. No acute radiographic abnormality in the chest. Dictated by: Dictated on workstation # [id number]
== END 2022-04-13 23:51 | disposition home or self-care (01) ==
LOC: EDUNIT# 21:31 → ER 21:32
DX: R07.89 Other chest pain (principal); F15.20 Other stimulant dependence, uncomplicated; F17.210 Nicotine dependence, cigarettes, uncomplicated; F17.290 Nicotine dependence, other tobacco product, uncomplicated; Z20.822 Contact with and (suspected) exposure to COVID-19
CPT/HCPCS: 71045; 71275; 74177; 80053; 80306; 81000; 82150; 82550; 82553; 83605; 83690; 83735; 83880; 84484; 85025; 85379; 85610; 85652; 85730; 86141; 87636; 93041; 99284; G0480; 36415; 80320; 93005; 96374

== ENCOUNTER 2022-04-15 19:15 | Emergency (ER) | payer MEDICARE, MEDICAID ==
[~2022-04-15] VITALS: Ht 177.8 cm; Wt 52.6 kg
[2022-04-15 19:36] LABS: BASOPHILS # (AUTO) 0.1 10^3/uL (0.0-0.1); BASOPHILS % (AUTO) 1 % (0-10); EOSINOPHILS # (AUTO) 0.7 10^3/uL (0.0-0.3); EOSINOPHILS % (AUTO) 8 % (0-10); HEMATOCRIT 42 % (40-54); HEMOGLOBIN 13.8 g/dL (13.3-17.7); LYMPHOCYTES % (AUTO) 35 % (12-44); MEAN CORPUSCULAR HEMOGLOBIN 31 pg (25-34); MEAN CORPUSCULAR HGB CONC 33 g/dL (32-36); MEAN CORPUSCULAR VOLUME 93 fL (80-99); MEAN PLATELET VOLUME 8.7 fL (9.0-12.2); MONOCYTES # (AUTO) 0.7 10^3/uL (0.0-1.0); MONOCYTES % (AUTO) 8 % (0-12); NEUTROPHILS # (AUTO) 3.9 10^3/uL (1.8-7.8); NEUTROPHILS % (AUTO) 47 % (42-75); PLATELET COUNT 291 10^3/uL (130-400); WHITE BLOOD COUNT 8.4 10^3/uL (4.3-11.0)
--- NOTE | 2022-04-15 19:40 | Diagnostic Imaging Report ---
INDICATION: Chest pain. COMPARISON: Prior examination from 04/13/2022. FINDINGS: The heart size, mediastinal configuration and pulmonary vascularity are within normal limits. There is no pleural effusion, pneumothorax or pneumonia. The osseous structures are unremarkable. IMPRESSION: No acute cardiopulmonary abnormality. Dictated by: Dictated on workstation # [id number]
--- NOTE | 2022-04-15 19:45 | ED Chest Pain ---
General Chief Complaint: Chest Pain Stated Complaint: CHEST PAIN Source: patient Exam Limitations: no limitations (OMI ARANA APRN) History of Present Illness Date Seen by Provider: Apr 15, 2022 Time Seen by Provider: 15:17 Initial Comments 46-year-old male presents via EMS with complaints of chest pain starting around 6 PM this evening. States he was watching the Superbowl and started having some chest pain, went outside to smoke a cigarette and the pain became worse. Reports some dizziness and shortness of air with the pain. Denies any heart conditions. Denies hypertension and diabetes. States he has had a DVT in his left leg approximately 2 years ago, was on a blood thinner, not currently taking one. States he only takes medication for gastric ulcer. Denies drug and alcohol use. Patient was seen for similar complaints 2 days ago. He was positive for methamphetamines 2 days ago. Denies fevers, cough, abdominal pain, nausea/vomiting. (OMI ARANA APRN) Allergies and Home Medications Allergies Uncoded Allergies: BEE AND WASPS (Allergy, Unknown, 11/04/14) POISON YASMINE AND OAK (Allergy, Unknown, 11/04/14) Patient Home Medication List Home Medication List Reviewed: Yes (OMI ARANA APRN) Albuterol Sulfate (Ventolin Hfa) 1 Puff Puff, 2 PUFF IH Q4H PRN for SHORTNESS OF BREATH, (Reported) Entered as Reported by: LING GARVEY on 02/11/18 1107 Apixaban (Eliquis) 2.5 Mg Tablet, 2.5 MG PO BID Prescribed by: NAOMY BELTRÁN on 02/14/18 0839 Apixaban (Eliquis) 5 Mg Tablet, 5 MG PO BID Prescribed by: CAMELIA BRAN on 12/08/20 1459 Calcium Carbonate (Calcium) 500 Mg Tab.chew, 1,000 MG PO Q4H PRN for HEARTBURN, (Reported) Entered as Reported by: LING GARVEY on 02/11/18 1107 Cyclobenzaprine HCl (Cyclobenzaprine HCl) 10 Mg Tablet, 10 MG PO Q8H PRN for MUSCLE SPASMS, (Reported) Entered as Reported by: LING GARVEY on 02/11/18 110 Diphenhydramine HCl (Benadryl) 25 Mg Capsule, 50 MG PO Q6H PRN for ALLERGIC REACTION, (Reported) Entered as Reported by: LING GARVEY on 02/11/18 110 Famotidine (Pepcid) 20 Mg Tablet, 20 MG PO DAILY Prescribed by: QUINN LYONS on 09/09/21 0302 Levothyroxine Sodium (Levothyroxine Sodium) 100 Mcg Tablet, 100 MCG PO 2100, (Reported) Entered as Reported by: LING GARVEY on 02/11/18 110 Omeprazole (Omeprazole) 20 Mg Capsule.dr, 20 MG PO BID Prescribed by: LAURE العلي on 03/12/222099 Ondansetron (Ondansetron Odt) 8 Mg Tab.rapdis, 8 MG PO Q6H Prescribed by: LAEXANDRA WEIR on 10/07/212032 Pantoprazole Sodium (Protonix) 40 Mg Tablet.dr, 40 MG PO DAILY Prescribed by: ALEXANDRA WEIR on 10/07/212032 Risperidone (Risperdal Consta) 12.5 Mg/2 Ml Disp.syrin, 12.5 MG IM EVERY 2 WEEKS, (Reported) Entered as Reported by: LING GARVEY on 02/11/18 1131 Sertraline HCl (Sertraline HCl) 100 Mg Tablet, 100 MG PO HS, (Reported) Entered as Reported by: LING GARVEY on 02/11/18 110 Simvastatin (Simvastatin) 10 Mg Tablet, 10 MG PO HS, (Reported) Entered as Reported by: LING GARVEY on 02/11/18 1153 Tetrahydrozoline HCl (Visine) 15 Ml Drops, 2 DROP OU Q6H PRN for EYE REDNESS, (Reported) Entered as Reported by: LING GARVEY on 02/11/18 110 Review of Systems Review of Systems Constitutional: see HPI (OMI ARANA APRN) Past Nzmxope-Gtloeb-Ioscip Hx Immunizations Up To Date Tetanus Booster (TDap): Unknown First/Initial COVID19 Vaccinat: x2 Second COVID19 Vaccination Abdulkadir: RECEIVED, UNK WHEN Third COVID19 Vaccination Date: unknown (OMI ARANA APRN) Seasonal Allergies Seasonal Allergies: Yes (OMI ARANA APRN) Past Medical History Surgery/Hospitalization HX: left total knee, chronic chest pain, anxiety, personality disorder, mild MR, high cholesterol, hypothryoidism, right knee scope, gastritis, dvt, asthma Surgeries: Yes (LEFT TOTAL KNEE REPLACEMENT) Joint Replacement, Orthopedic Respiratory: Yes Asthma Cardiac: Yes ("CHRONIC CHEST PAIN"; DVT LEFT LEG 12/2020) Deep Vein Thrombosis, High Cholesterol Neurological: Yes (MILD MR) Genitourinary: No Gastrointestinal: Yes (GASTRITIS/GERD) Gastroesophageal Reflux Musculoskeletal: Yes (LEFT KNEE REPLACEMENT; RIGHT KNEE SCOPE) Endocrine: Yes Hypothyroidsim HEENT: Yes (GLASSES) Loss of Vision: Bilateral Cancer: No 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; POLYSUBSTANCE ABUSE) Anxiety, Personality Disorder Integumentary: Yes ( CELLULITIS LEFT LEG) Blood Disorders: No (OMI ARANA APRN) Family Medical History SOCIAL HISTORY: -SMOKES 4 PPD, ALSO VAPES NICOTINE DAILY -ETOH--QUIT DRINKING A YEAR AGO, PER PT 10/07/21 -DENIES DRUG USE, BUT HAS TESTED + FOR METH ON MULTIPLE VIWSITS PAST SURGICAL HISTORY: -LEFT KNEE SURGERY -RIGHT KNEE SCOPE 02/[address] QUINTEROS PT HAD LEFT LEG DVT IN 2020, NON-COMPLIANT WITH MEDICATIONS (OMI ARANA APRN) Physical Exam Vital Signs Vital Signs - First Documented 04/15/22 04/15/22 19:17 22:17 Temp 36.4 Pulse 77 Resp 17 B/P (MAP) 98/70 (79) Pulse Ox 98 O2 Delivery Room Air (CARMELLA,ALEXANDRA K DO) Vital Signs Capillary Refill : (OMI ARANA APRN) Height, Weight, BMI Height: 5'10.00" Weight: 238lbs. 0.0oz. 107.566306vf; 23.00 BMI Method:Stated General Appearance: No Apparent Distress, WD/WN Neck: Normal Inspection, Supple Respiratory: Lungs Clear, Normal Breath Sounds, No Accessory Muscle Use, No Respiratory Distress Cardiovascular: Regular Rate, Rhythm, No Edema, No Gallop, No JVD, No Murmur Extremity: Normal Inspection, Normal Range of Motion Neurologic/Psychiatric: Alert, Oriented x3, No Motor/Sensory Deficits Skin: Normal Color, Warm/Dry (OMI ARANA APRN) Progress/Results/Core Measures Results/Orders Lab Results Laboratory Tests Test 04/15/22 19:28 04/15/22 21:15 Range/Units White Blood Count 8.4 4.3-11.0 10^3/uL Red Blood Count 4.53 4.30-5.52 10^6/uL Hemoglobin 13.8 13.3-17.7 g/dL Hematocrit 42 40-54 % Mean Corpuscular Volume 93 80-99 fL Mean Corpuscular Hemoglobin 31 25-34 pg Mean Corpuscular Hemoglobin Concent 33 32-36 g/dL Red Cell Distribution Width 13.4 10.0-14.5 % Platelet Count 291 130-400 10^3/uL Mean Platelet Volume 8.7 L 9.0-12.2 fL Immature Granulocyte % (Auto) 0 % Neutrophils (%) (Auto) 47 42-75 % Lymphocytes (%) (Auto) 35 12-44 % Monocytes (%) (Auto) 8 0-12 % Eosinophils (%) (Auto) 8 0-10 % Basophils (%) (Auto) 1 0-10 % Neutrophils # (Auto) 3.9 1.8-7.8 10^3/uL Lymphocytes # (Auto) 3.0 1.0-4.0 10^3/uL Monocytes # (Auto) 0.7 0.0-1.0 10^3/uL Eosinophils # (Auto) 0.7 H 0.0-0.3 10^3/uL Basophils # (Auto) 0.1 0.0-0.1 10^3/uL Immature Granulocyte # (Auto) 0.0 0.0-0.1 10^3/uL Prothrombin Time 13.3 12.2-14.7 SEC INR Comment 1.0 0.8-1.4 Activated Partial Thromboplast Time 31 24-35 SEC D-Dimer 0.55 H 0.00-0.49 UG/ML Sodium Level 141 135-145 MMOL/L Potassium Level 4.1 3.6-5.0 MMOL/L Chloride Level 105 98-107 MMOL/L Carbon Dioxide Level 25 21-32 MMOL/L Anion Gap 11 5-14 MMOL/L Blood Urea Nitrogen 13 7-18 MG/DL Creatinine 0.94 0.60-1.30 MG/DL Estimat Glomerular Filtration Rate 102 BUN/Creatinine Ratio 14 Glucose Level 88 70-105 MG/DL Calcium Level 9.4 8.5-10.1 MG/DL Corrected Calcium 9.2 8.5-10.1 MG/DL Magnesium Level 2.0 1.6-2.4 MG/DL Total Bilirubin 0.2 0.1-1.0 MG/DL Aspartate Amino Transf (AST/SGOT) 23 5-34 U/L Alanine Aminotransferase (ALT/SGPT) 35 0-55 U/L Alkaline Phosphatase 86 40-136 U/L Myoglobin 49.5 10.0-92.0 NG/ML Troponin I < 0.028 < 0.028 <0.028 NG/ML Total Protein 7.4 6.4-8.2 GM/DL Albumin 4.2 3.2-4.5 GM/DL Serum Alcohol < 10 <10 MG/DL (ALEXANDRA WEIR DO) Medications Given in ED Current Medications Medications Dose Ordered Sig/Sujatha Route Start Time Stop Time Status Last Admin Dose Admin Iohexol 75 ml ONCE ONCE IV 04/15/22 21:00 04/15/22 21:36 DC 04/15/22 21:24 58 ML Sodium Chloride 100 ml ONCE ONCE IV 04/15/22 21:00 04/15/22 21:36 DC 04/15/22 21:25 66 ML (ALEXANDRA WEIR DO) Vital Signs/I&O 04/15/22 04/15/22 19:17 22:17 Temp 36.4 36.4 Pulse 77 84 Resp 17 16 B/P (MAP) 98/70 (79) 137/86 Pulse Ox 98 O2 Delivery Room Air Room Air (ALEXANDRA WEIR DO) Progress Progress Note #1: Time: 19:47 Progress Note Patient seen and evaluated, resting calmly in bed, no acute distress. Based on exam and symptoms, concern for PR, musculoskeletal pain, pneumonia. Work-up initiated including CBC, CMP, troponin, myoglobin, chest x-ray. Progress Note #2: Time: 20:19 Progress Note Labs and x-ray reviewed. CBC grossly normal, WBC 8.4, hemoglobin 13.8, hematocrit 42. CMP grossly normal, myoglobin negative at 49.5, troponin negative less than 0.0 2 8, coags negative. Alcohol negative. D-dimer added on. Progress Note #3: Time: 20:50 Progress Note D-dimer elevated at 0.55. CT angio chest PE rule out ordered. Will order repeat troponin at 2100. Progress Note #4: Time: 21:[address] reviewed. Negative for PE. Waiting for results of repeat troponin. Progress Note #5: Time: 22:03 Progress Note Repeat troponin negative. Results reviewed with patient. Discharge instructions and return precautions provided. (OMI ARANA APRN) Initial ECG Impression Date: Apr 15, 2022 Initial ECG Impression Time: 19:19 Initial ECG Rate: 77 Initial ECG Rhythm: Normal Sinus Initial ECG Intervals: Normal Initial ECG Impression: Normal Initial ECG Comparisson: Unchanged Comment Unchanged from 04/13/2022 (OMI ARANA APRN) Diagnostic Imaging Diagonstic Imaging: Xray Plain Films/CT/US/NM/MRI: chest [facility] [place] [place] NAME: DARIANRUBI Garay [employer] REC#: [id number] PT STATUS: REG ER : 1975 PHYSICIAN: OMI ARANA APRN ADMIT DATE: 04/15/22/ER Draft Date of Exam:04/15/22 CHEST 1 VIEW, AP/PA ONLY INDICATION: Chest pain. COMPARISON: Prior examination from 04/13/2022. FINDINGS: The heart size, mediastinal configuration and pulmonary vascularity are within normal limits. There is no pleural effusion, pneumothorax or pneumonia. The osseous structures are unremarkable. IMPRESSION: No acute cardiopulmonary abnormality. Dictated on workstation # [id number] Dict: 04/15/221938 Trans: 04/15/221939 [facility] [id number] Interpreted by: GEE HAYNES MD Electronically signed by: Diagonstic Imaging: CT Plain Films/CT/US/NM/MRI: chest Comments [facility] [place] [place] NAME: DAHLIARUBI Stephenie [employer] REC#: [id number] PT STATUS: REG ER : 1975 PHYSICIAN: OMI ARANA APRN ADMIT DATE: 04/15/22/ER Draft Date of Exam:04/15/22 CT ANGIO CHEST W (R/O PE) INDICATION: Chest pain, shortness of breath. TECHNIQUE: Multiple contiguous axial images were obtained through the chest after the uneventful bolus administration of intravenous contrast. Sagittal and coronal MIP reconstructions were then performed. FINDINGS: There is no primary nodule, mass or infiltrate. There is no pleural or pericardial fluid. There is no pneumothorax. There is no pathologically enlarged adenopathy in the chest. The thoracic aorta is normal in caliber and without evidence of dissection. There is no filling defect seen within the pulmonary arteries to suggest a pulmonary embolism. The visualized intraabdominal structures are unremarkable. The osseous structures are unremarkable. IMPRESSION: No acute abnormality in the chest. Specifically, there is no evidence of a pulmonary embolism or aortic dissection. Dictated on workstation # [id number] Dict: 04/15/[id number] Trans: 04/15/222137 [facility] [id number] Interpreted by: GEE HAYNES MD Electronically signed by: (OMI ARANA APRN) Departure Impression Primary Impression: Chest pain Disposition: 01 HOME, SELF-CARE Condition: Stable Departure-Patient Inst. Decision time for Depature: 22:04 (OMI ARANA APRN) Referrals: [facility] (PCP/Family) Primary Care Physician Patient Instructions: Chest Pain That Is Not Caused by the Heart (DC) Add. Discharge Instructions: Return for uncontrolled chest pain, shortness of breath, lightheadedness, feeling faint, nausea, vomiting, or other new, concerning, or worsening symptoms. Follow-up with your primary care provider. All discharge instructions reviewed with patient and/or family. Voiced understanding. ATTENDING PHYSICIAN NOTE: I WAS PHYSICALLY PRESENT ER PHYSICIAN, BUT I WAS NOT INVOLVED IN ANY DECISION MAKING OR ANY CARE OF THIS PATIENT AND I AM NOT COLLABORATING PHYSICIAN. (ALEXANDRA WEIR DO) OMI ARANA APRN Apr 15, 2022 19:45 ALEXANDRA WEIR DO Apr 16, 2022 05:04
[2022-04-15 19:49] LABS: ALBUMIN 4.2 GM/DL (3.2-4.5)
[2022-04-15 19:50] LABS: POTASSIUM 4.1 MMOL/L (3.6-5.0)
[2022-04-15 19:51] LABS: CALCIUM 9.4 MG/DL (8.5-10.1); PROTHROMBIN TIME PATIENT 13.3 SEC (12.2-14.7)
[2022-04-15 19:52] LABS: TOTAL PROTEIN 7.4 GM/DL (6.4-8.2)
[2022-04-15 19:54] LABS: BILIRUBIN,TOTAL 0.2 MG/DL (0.1-1.0)
[2022-04-15 19:56] LABS: CREATININE SERUM 0.94 MG/DL (0.60-1.30)
[2022-04-15] MEDS ORDERED: HOLD METFORMIN - RECEIVED CONTRAST 20 ML VIAL IV SCH (21:00)
[2022-04-15] MEDS ORDERED: IOHEXOL 350 MG/ML 100 ML (OMNIPAQUE 350) VIAL IV ONE (21:00)
[2022-04-15] MEDS ORDERED: NS 100 ML (IVPB) BAG IV ONE (21:00)
[2022-04-15] MEDS ORDERED: NS IV 1000 ML 1,000 ML IV SCH (21:00)
--- NOTE | 2022-04-15 21:38 | Diagnostic Imaging Report ---
INDICATION: Chest pain, shortness of breath. TECHNIQUE: Multiple contiguous axial images were obtained through the chest after the uneventful bolus administration of intravenous contrast. Sagittal and coronal MIP reconstructions were then performed. FINDINGS: There is no primary nodule, mass or infiltrate. There is no pleural or pericardial fluid. There is no pneumothorax. There is no pathologically enlarged adenopathy in the chest. The thoracic aorta is normal in caliber and without evidence of dissection. There is no filling defect seen within the pulmonary arteries to suggest a pulmonary embolism. The visualized intraabdominal structures are unremarkable. The osseous structures are unremarkable. IMPRESSION: No acute abnormality in the chest. Specifically, there is no evidence of a pulmonary embolism or aortic dissection. Dictated by: Dictated on workstation # [id number]
[2022-04-15 22:17] VITALS: BP 137/86
== END 2022-04-15 22:17 | disposition home or self-care (01) ==
LOC: EDUNIT# 19:15 → ER 19:16
DX: R07.9 Chest pain, unspecified (principal); R06.02 Shortness of breath; R79.1 Abnormal coagulation profile; R42 Dizziness and giddiness; F17.210 Nicotine dependence, cigarettes, uncomplicated; F17.290 Nicotine dependence, other tobacco product, uncomplicated; K25.9 Gastric ulcer, unspecified as acute or chronic, without hemorrhage or perforation; Z79.899 Other long term (current) drug therapy
CPT/HCPCS: 71045; 71275; 80053; 83735; 83874; 84484; 85025; 85379; 85610; 85730; 93005; 93041; 99284; G0480; 36415; 80320

== ENCOUNTER 2022-06-12 00:01 | Emergency (ER) | payer MEDICARE, MEDICAID ==
[~2022-06-12] VITALS: Ht 175.3 cm; Wt 96.6 kg
[2022-06-12] MEDS ORDERED: KETOROLAC 15 MG/ML VIAL IVP ONE (00:15)
--- NOTE | 2022-06-12 00:21 | ED Lower Extremity ---
General Chief Complaint: Lower Extremity Stated Complaint: LEG PAIN Source: patient, EMS History of Present Illness Date Seen by Provider: Jun 12, 2022 Time Seen by Provider: 00:02 Initial Comments Patient is a 46-year-old male who presents to the emergency room with a chief complaint of left leg swelling and pain, redness. Onset 2 or 3 days ago. Patient states it hurts so bad that it is difficult to bear weight. He denies any shortness of breath or chest pain, no nausea or vomiting. Uncertain of any trauma does not really recall any direct injury. Took 2 Tylenol at 10:30 PM. Per review of the medical record had left-sided DVT 2-1/2 years ago. Currently not on any medications. Denies being a diabetic. Onset: other (2 days) Severity: moderate Pain/Injury Location: left leg Method of Injury: unknown Modifying Factors: Worse With Movement Allergies and Home Medications Allergies Uncoded Allergies: BEE AND WASPS (Allergy, Unknown, 11/04/14) POISON YASMINE AND OAK (Allergy, Unknown, 11/04/14) Patient Home Medication List Home Medication List Reviewed: Yes Albuterol Sulfate (Ventolin Hfa) 1 Puff Puff, 2 PUFF IH Q4H PRN for SHORTNESS OF BREATH, (Reported) Entered as Reported by: LING GARVEY on 02/11/18 1107 Amoxicillin (Amoxicillin) 875 Mg Tablet, 875 MG PO BID Prescribed by: SWETA THORPE on 06/12/22 0117 Apixaban (Eliquis) 2.5 Mg Tablet, 2.5 MG PO BID Prescribed by: NAOMY BELTRÁN on 02/14/18 0839 Apixaban (Eliquis) 5 Mg Tablet, 5 MG PO BID Prescribed by: CAMELIA BRAN on 12/08/20 1459 Calcium Carbonate (Calcium) 500 Mg Tab.chew, 1,000 MG PO Q4H PRN for HEARTBURN, (Reported) Entered as Reported by: LING GARVEY on 02/11/18 1107 Cyclobenzaprine HCl (Cyclobenzaprine HCl) 10 Mg Tablet, 10 MG PO Q8H PRN for MUSCLE SPASMS, (Reported) Entered as Reported by: LING GARVEY on 02/11/18 110 Diphenhydramine HCl (Benadryl) 25 Mg Capsule, 50 MG PO Q6H PRN for ALLERGIC REACTION, (Reported) Entered as Reported by: LING GARVEY on 02/11/18 110 Doxycycline Hyclate (Doxycycline Hyclate) 100 Mg Tablet, 100 MG PO BID Prescribed by: SWETA THORPE on 06/12/22 0117 Famotidine (Pepcid) 20 Mg Tablet, 20 MG PO DAILY Prescribed by: QUINN LYONS on 09/09/21 0302 Levothyroxine Sodium (Levothyroxine Sodium) 100 Mcg Tablet, 100 MCG PO 2100, (Reported) Entered as Reported by: LING GARVEY on 02/11/181106 Omeprazole (Omeprazole) 20 Mg Capsule.dr, 20 MG PO BID Prescribed by: LAURE العلي on 03/12/222099 Ondansetron (Ondansetron Odt) 8 Mg Tab.rapdis, 8 MG PO Q6H Prescribed by: ALEXANDRA WEIR on 10/07/212032 Pantoprazole Sodium (Protonix) 40 Mg Tablet.dr, 40 MG PO DAILY Prescribed by: ALEXANDRA WEIR on 10/07/212032 Risperidone (Risperdal Consta) 12.5 Mg/2 Ml Disp.syrin, 12.5 MG IM EVERY 2 WEEKS, (Reported) Entered as Reported by: LING GARVEY on 02/11/18 113 Sertraline HCl (Sertraline HCl) 100 Mg Tablet, 100 MG PO HS, (Reported) Entered as Reported by: LING GARVEY on 02/11/181106 Simvastatin (Simvastatin) 10 Mg Tablet, 10 MG PO HS, (Reported) Entered as Reported by: LING GARVEY on 02/11/18 115 Tetrahydrozoline HCl (Visine) 15 Ml Drops, 2 DROP OU Q6H PRN for EYE REDNESS, (Reported) Entered as Reported by: LING GARVEY on 02/11/181106 Review of Systems Constitutional: see HPI EENTM: no symptoms reported Respiratory: no symptoms reported Cardiovascular: no symptoms reported Gastrointestinal: no symptoms reported Genitourinary: no symptoms reported Musculoskeletal: muscle pain (left lower leg pain, redness and swelling) Skin: rash All Other Systems Reviewed Negative Unless Noted: Yes Past Saxtdol-Flbhtw-Bukqnj Hx Patient Social History Tobacco Use?: Yes Tobacco type used: Cigarettes Smoking Status: Current Everyday Smoker Use of E-Cig and/or Vaping dev: No Substance use?: Yes Substance type: Methamphetamine Additional substance use comme: LAST USE TODAY Alcohol Use?: Yes Alcohol Frequency: Once in a while Immunizations Up To Date Tetanus Booster (TDap): Unknown Influenza Vaccine Up-to-Date: No; Not Current First/Initial COVID19 Vaccinat: x2 Second COVID19 Vaccination Abdulkadir: x2 Third COVID19 Vaccination Date: x2 COVID19 Vaccine Assistant 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: MODERNA X2 Seasonal Allergies Seasonal Allergies: Yes Past Medical History Surgery/Hospitalization HX: left total knee, chronic chest pain, anxiety, personality disorder, mild MR, high cholesterol, hypothryoidism, right knee scope, gastritis, dvt, asthma Surgeries: Yes (LEFT TOTAL KNEE REPLACEMENT) Joint Replacement, Orthopedic Respiratory: Yes Asthma Cardiac: Yes ("CHRONIC CHEST PAIN"; DVT LEFT LEG 12/2020) Deep Vein Thrombosis, High Cholesterol Neurological: Yes (MILD MR) Genitourinary: No Gastrointestinal: Yes (GASTRITIS/GERD) Gastroesophageal Reflux Musculoskeletal: Yes (LEFT KNEE REPLACEMENT; RIGHT KNEE SCOPE) Endocrine: Yes Hypothyroidsim HEENT: Yes (GLASSES) Loss of Vision: Bilateral Cancer: No 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; POLYSUBSTANCE ABUSE) Anxiety, Personality Disorder Integumentary: Yes ( CELLULITIS LEFT LEG) Blood Disorders: No Family Medical History SOCIAL HISTORY: -SMOKES 4 PPD, ALSO VAPES NICOTINE DAILY -ETOH--QUIT DRINKING A YEAR AGO, PER PT 10/07/21 -DENIES DRUG USE, BUT HAS TESTED + FOR METH ON MULTIPLE VIWSITS PAST SURGICAL HISTORY: -LEFT KNEE SURGERY -RIGHT KNEE SCOPE 02/[address] QUINTEROS PT HAD LEFT LEG DVT IN 2020, NON-COMPLIANT WITH MEDICATIONS Physical Exam Vital Signs Vital Signs - First Documented 06/12/22 00:01 Temp 36.6 Pulse 81 Resp 20 B/P (MAP) 120/78 (92) Pulse Ox 98 O2 Delivery Room Air Capillary Refill : Height, Weight, BMI Height: 5'10.00" Weight: 238lbs. 0.0oz. [id number]; 16.00 BMI Method:Stated General Appearance: WD/WN, no apparent distress HEENT: PERRL/EOMI Cardiovascular: regular rate, rhythm Respiratory: lungs clear, normal breath sounds, no respiratory distress, no accessory muscle use Gastrointestinal: non tender, soft Hips: bilateral hip non-tender, bilateral hip normal inspection, bilateral hip normal range of motion, bilateral hip no evidence of injury Legs: bilateral leg pain (tender to palpation left distal leg; erytema from ankle thru distal third of leg. no open wounds. incrased warmth. 2-3+ pitting edema. Posterior calf dark purplish erythema. no cords.), bilateral leg soft tissue tenderness, bilateral leg swelling Knees: bilateral knee non-tender, bilateral knee normal inspection, bilateral knee normal range of motion, bilateral knee no evidence of injury Ankles: left ankle swelling Feet: left foot swelling, left foot other (2+ DP pulse) Neurologic/Psychiatric: alert, oriented x 3, depressed affect, other (slow res ponses) Skin: rash (erythema distal 1/3 left leg. no crepitance) Progress/Results/Core Measures Results/Orders Lab Results Laboratory Tests Test 06/12/22 00:05 Range/Units White Blood Count 7.0 4.3-11.0 10^3/uL Red Blood Count 4.18 L 4.30-5.52 10^6/uL Hemoglobin 13.2 L 13.3-17.7 g/dL Hematocrit 38 L 40-54 % Mean Corpuscular Volume 91 80-99 fL Mean Corpuscular Hemoglobin 32 25-34 pg Mean Corpuscular Hemoglobin Concent 35 32-36 g/dL Red Cell Distribution Width 12.5 10.0-14.5 % Platelet Count 277 130-400 10^3/uL Mean Platelet Volume 8.6 L 9.0-12.2 fL Immature Granulocyte % (Auto) 0 % Neutrophils (%) (Auto) 63 42-75 % Lymphocytes (%) (Auto) 26 12-44 % Monocytes (%) (Auto) 9 0-12 % Eosinophils (%) (Auto) 1 0-10 % Basophils (%) (Auto) 1 0-10 % Neutrophils # (Auto) 4.4 1.8-7.8 10^3/uL Lymphocytes # (Auto) 1.8 1.0-4.0 10^3/uL Monocytes # (Auto) 0.6 0.0-1.0 10^3/uL Eosinophils # (Auto) 0.1 0.0-0.3 10^3/uL Basophils # (Auto) 0.1 0.0-0.1 10^3/uL Immature Granulocyte # (Auto) 0.0 0.0-0.1 10^3/uL Sodium Level 136 135-145 MMOL/L Potassium Level 3.7 3.6-5.0 MMOL/L Chloride Level 102 98-107 MMOL/L Carbon Dioxide Level 21 21-32 MMOL/L Anion Gap 13 5-14 MMOL/L Blood Urea Nitrogen 14 7-18 MG/DL Creatinine 0.86 0.60-1.30 MG/DL Estimat Glomerular Filtration Rate 109 BUN/Creatinine Ratio 16 Glucose Level 99 70-105 MG/DL Calcium Level 9.1 8.5-10.1 MG/DL My Orders Orders - SWETA THORPE MD Ed Iv/Invasive Line Start (06/12/22 00:11) Cbc With Automated Diff (06/12/22 00:11) Basic Metabolic Panel (06/12/22 00:11) Tibia/Fibula, Left, 2 Views (06/12/22 00:11) Ketorolac Injection (Toradol Injection) (06/12/22 00:15) Doxycycline Hyclate Tablet (Vibramycin T (06/12/22 01:18) Amoxicillin/Clavulanate Tablet (Augmenti (06/12/22 01:18) Medications Given in ED Current Medications Medications Dose Ordered Sig/Sujatha Route Start Time Stop Time Status Last Admin Dose Admin Ketorolac Tromethamine 15 mg ONCE ONCE IVP 06/12/22 00:15 06/12/22 00:16 DC 06/12/22 00:35 15 MG Vital Signs/I&O 06/12/22 06/12/22 00:01 01:28 Temp 36.6 Pulse 81 81 Resp 20 18 B/P (MAP) 120/78 (92) 99/66 Pulse Ox 98 100 O2 Delivery Room Air Room Air Progress Progress Note : Time: 01:00 Progress Note Patient seen and examined by me. Evaluation today includes physical exam, CBC, basic metabolic panel, x-ray of the left tib-fib. Patient reports nontraumatic left leg swelling and redness and pain. Inability to bear weight. Physical exam remarkable for 2-3+ pitting edema of the left lower extremity with erythema over the distal one third of the left lower leg. Purplish red discoloration along the posterior aspect without any proximal lymphangitic streaking. Distal pulses are intact. Sensation is intact. No open wounds are appreciated. Negative Homans' sign. Vital signs are stable, the patient is not tachypneic, hypoxic. Differential diagnosis based on history and physical, cellulitis, DVT. Labs reviewed, CBC is normal, basic metabolic panel is normal. X-ray of the left tib-fib does not reveal any subcutaneous gas/air. No fractures are appreciated. Patient is treated with 15 mg of Toradol IV. Low clinical suspicion for sepsis. The patient is not diabetic. Patient has no physical exam findings other than edema concerning for DVT. He has had prior DVT in the left leg. Treated for simple cellulitis of the left lower extremity with amoxicillin and doxycycline here in the emergency department. Prescription sent to his pharmacy of the same. Patient is advised to monitor his symptoms for fever, worsening redness. He is advised if he becomes short of breath or has any other concerns to return to the emergency department. Advised to follow-up with his primary care doctor in a week. He verbalized understanding. All questions are sought and answered. Patient is stable for discharge. Departure Impression Primary Impression: Cellulitis of left leg Disposition: HOME, SELF-CARE Condition: Stable Departure-Patient Inst. Decision time for Depature: 01:16 Referrals: [facility] [place] ([place]P/Family) Primary Care Physician Patient Instructions: Cellulitis (Skin Infection), Adult ED Add. Discharge Instructions: Elevate your left leg to keep the swelling down. Take the antibiotics as directed for 1 week, 7 days. Amoxicillin twice a day for 7 days and doxycycline twice a day for 7 days. Iumi-fhz-ragmtlh ibuprofen 3 tablets which is 600 mg every 6 hours with food as needed for pain. If after 48 hours the redness is increasing, if you develop a fever or any other emergent, concerning symptoms please return to the emergency room for reevaluation. Please call [facility] tomorrow for a follow-up appointment in 1 week Scripts Doxycycline Hyclate (Doxycycline Hyclate) 100 Mg Tablet 100 MG PO BID for 7 Days, #13 TAB Prov: SWETA THORPE MD 06/12/22 Amoxicillin (Amoxicillin) 875 Mg Tablet 875 MG PO BID, #13 TAB Prov: SWETA THORPE MD 06/12/22 Copy Copies To 1: ALFREDO ABEL KATHRYN M MD Jun 12, 2022 00:21
[2022-06-12 00:22] LABS: BASOPHILS # (AUTO) 0.1 10^3/uL (0.0-0.1); BASOPHILS % (AUTO) 1 % (0-10); EOSINOPHILS # (AUTO) 0.1 10^3/uL (0.0-0.3); EOSINOPHILS % (AUTO) 1 % (0-10); HEMATOCRIT 38 % (40-54); HEMOGLOBIN 13.2 g/dL (13.3-17.7); LYMPHOCYTES # (AUTO) 1.8 10^3/uL (1.0-4.0); LYMPHOCYTES % (AUTO) 26 % (12-44); MEAN CORPUSCULAR HEMOGLOBIN 32 pg (25-34); MEAN CORPUSCULAR HGB CONC 35 g/dL (32-36); MEAN CORPUSCULAR VOLUME 91 fL (80-99); MEAN PLATELET VOLUME 8.6 fL (9.0-12.2); MONOCYTES # (AUTO) 0.6 10^3/uL (0.0-1.0); MONOCYTES % (AUTO) 9 % (0-12); NEUTROPHILS # (AUTO) 4.4 10^3/uL (1.8-7.8); NEUTROPHILS % (AUTO) 63 % (42-75); PLATELET COUNT 277 10^3/uL (130-400)
[2022-06-12 00:33] LABS: CALCIUM 9.1 MG/DL (8.5-10.1); CREATININE SERUM 0.86 MG/DL (0.60-1.30); POTASSIUM 3.7 MMOL/L (3.6-5.0)
[2022-06-12] MEDS ORDERED: DOXY100T2 PO (01:17)
[2022-06-12] MEDS ORDERED: AMOX875T2 PO (01:17)
[2022-06-12] MEDS ORDERED: DOXYCYCLINE 100 MG (VIBRAMYCIN) TABLET PO STA (01:18)
[2022-06-12] MEDS ORDERED: AUGMENTIN 875 MG TAB (AMOXICILLIN/CLAVULANATE) PO STA (01:18)
[2022-06-12 01:28] VITALS: BP 99/66
--- NOTE | 2022-06-12 07:25 | Diagnostic Imaging Report ---
INDICATION: Left leg pain AP and lateral views of the left tibia and fibula are obtained. No fracture or acute bony abnormality is seen. IMPRESSION: Negative left tibia and fibula. Dictated by: Dictated on workstation # [id number]
== END 2022-06-12 01:29 | disposition home or self-care (01) ==
LOC: EDUNIT# 00:01 → ER 00:03
DX: L03.116 Cellulitis of left lower limb (principal); Z86.718 Personal history of other venous thrombosis and embolism; F17.210 Nicotine dependence, cigarettes, uncomplicated; F17.290 Nicotine dependence, other tobacco product, uncomplicated
CPT/HCPCS: 36415; 73590; 80048; 85025

== ENCOUNTER 2022-07-06 11:50 | Emergency (ER) | payer MEDICARE, MEDICAID ==
[~2022-07-06] VITALS: Ht 175 cm; Wt 78.0 kg
[2022-07-06 11:50] VITALS: BP 119/78
[~2022-07-06 11:50] MED LIST changes: +AMOX875T2 PO; +DOXY100T2 PO
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
== END 2022-07-06 14:30 | disposition home or self-care (01) ==
LOC: EDUNIT# 11:50 → ER 11:51
DX: M54.2 Cervicalgia (principal); R51.9 Headache, unspecified; M48.02 Spinal stenosis, cervical region; F19.10 Other psychoactive substance abuse, uncomplicated; F17.210 Nicotine dependence, cigarettes, uncomplicated; Z28.310 Unvaccinated for COVID-19; Y04.8XXA Assault by other bodily force, initial encounter
CPT/HCPCS: 70450; 72125; 99283; L0150

== ENCOUNTER 2022-08-27 03:10 | Emergency (ER) | payer MEDICARE, MEDICAID ==
[~2022-08-27] VITALS: Ht 175.3 cm; Wt 84.8 kg
[2022-08-27 03:11] VITALS: BP 121/83
[2022-08-27] MEDS ORDERED: PRD20T PO (03:20)
[2022-08-27] MEDS ORDERED: HYDR28.480 TP (03:20)
[2022-08-27] MEDS ORDERED: FAMO40TA72 PO (03:20)
--- NOTE | 2022-08-27 03:20 | ED Integumentary General ---
General Stated Complaint: POISON YASMINE Source: patient (SOMEWHAT DIFFICULT HISTORIAN), old records History of Present Illness Date Seen by Provider: Aug 27, 2022 Time Seen by Provider: 03:12 Initial Comments PT ARRIVES VIA EMS--WALKS IN ON HIS OWN CARRYING A BACKPACK PT IS HOMELESS, AND WAS AT [facility]. PT HAS BEEN LIVING OUTSIDE IN THE [facility]. HE DOES HAVE A BICYCLE. C/O ITCHY RASH ALL OVER SINCE LAST NIGHT--THINKS HE HAS POISON YASMINE NO SWELLING ANYWHERE NO DIFFICULTY BREATHING OR SWALLOWING HE HAS NOT TAKEN ANYTHING FOR SYMPTOMS, HE HAS NOT APPLIED ANYTHING TOPICAL TO THE RASH PCP[place] [place]erg[place] and Home Medications Allergies Uncoded Allergies: BEE AND WASPS (Allergy, Unknown, 11/04/14) POISON YASMINE AND OAK (Allergy, Unknown, 11/04/14) Patient Home Medication List Home Medication List Reviewed: Yes Albuterol Sulfate (Ventolin Hfa) 1 Puff Puff, 2 PUFF IH Q4H PRN for SHORTNESS OF BREATH, (Reported) Entered as Reported by: LING GARVEY on 02/11/18 1107 Amoxicillin (Amoxicillin) 875 Mg Tablet, 875 MG PO BID Prescribed by: SWETA THORPE on 06/12/22 0117 Apixaban (Eliquis) 2.5 Mg Tablet, 2.5 MG PO BID Prescribed by: NAOMY BELTRÁN on 02/14/18 0839 Apixaban (Eliquis) 5 Mg Tablet, 5 MG PO BID Prescribed by: CAMELIA BRAN on 12/08/20 1459 Calcium Carbonate (Calcium) 500 Mg Tab.chew, 1,000 MG PO Q4H PRN for HEARTBURN, (Reported) Entered as Reported by: LING GARVEY on 02/11/18 1107 Cyclobenzaprine HCl (Cyclobenzaprine HCl) 10 Mg Tablet, 10 MG PO Q8H PRN for MUSCLE SPASMS, (Reported) Entered as Reported by: LING GARVEY on 02/11/18 110 Diphenhydramine HCl (Benadryl) 25 Mg Capsule, 50 MG PO Q6H PRN for ALLERGIC REACTION, (Reported) Entered as Reported by: LING GARVEY on 02/11/18 110 Doxycycline Hyclate (Doxycycline Hyclate) 100 Mg Tablet, 100 MG PO BID Prescribed by: SWETA THORPE on 06/12/22 011 Famotidine (Pepcid) 20 Mg Tablet, 20 MG PO DAILY Prescribed by: QUINN LYONS on 09/09/21 030 Famotidine (Pepcid) 40 Mg Tablet, 40 MG PO DAILY Prescribed by: ALEXANDRA WEIR on 08/27/22319 Hydrocortisone/Aloe Vera (Hydrocortisone Plus 1% Cream) 1 % Cream..g., 28.4 GM TP TID Prescribed by: ALEXANDRA WEIR on 08/27/22319 Levothyroxine Sodium (Levothyroxine Sodium) 100 Mcg Tablet, 100 MCG PO 2100, (Reported) Entered as Reported by: LING GARVEY on 02/11/181106 Omeprazole (Omeprazole) 20 Mg Capsule.dr, 20 MG PO BID Prescribed by: LAURE اللعي on 03/12/222099 Ondansetron (Ondansetron Odt) 8 Mg Tab.rapdis, 8 MG PO Q6H Prescribed by: ALEXANDRA WEIR on 10/07/212032 Pantoprazole Sodium (Protonix) 40 Mg Tablet.dr, 40 MG PO DAILY Prescribed by: ALEXANDRA WEIR on 10/07/212032 Prednisone (Prednisone) 20 Mg Tab, 40 MG PO DAILY Prescribed by: ALEXANDRA WEIR on 08/27/22319 Risperidone (Risperdal Consta) 12.5 Mg/2 Ml Disp.syrin, 12.5 MG IM EVERY 2 WEEKS, (Reported) Entered as Reported by: LING GARVEY on 02/11/18 1131 Sertraline HCl (Sertraline HCl) 100 Mg Tablet, 100 MG PO HS, (Reported) Entered as Reported by: LING GARVEY on 02/11/18 110 Simvastatin (Simvastatin) 10 Mg Tablet, 10 MG PO HS, (Reported) Entered as Reported by: LING GARVEY on 02/11/18 1153 Tetrahydrozoline HCl (Visine) 15 Ml Drops, 2 DROP OU Q6H PRN for EYE REDNESS, (Reported) Entered as Reported by: LING GARVEY on 02/11/18 110 Review of Systems Review of Systems Constitutional: no symptoms reported EENTM: no symptoms reported Respiratory: no symptoms reported Cardiovascular: no symptoms reported Gastrointestinal: no symptoms reported Musculoskeletal: no symptoms reported Skin: see HPI Psychiatric/Neurological: No Symptoms Reported Endocrine: No Symptoms Reported Hematologic/Lymphatic: No Symptoms Reported Past Ibfmbhq-Gdsgsj-Kzienb Hx Patient Social History Tobacco Use?: Yes Tobacco type used: Cigarettes Smoking Status: Current Everyday Smoker Substance use?: Yes Substance type: Methamphetamine Substance frequency: Daily Alcohol Use?: Yes Alcohol Frequency: Daily Immunizations Up To Date Tetanus Booster (TDap): Unknown First/Initial COVID19 Vaccinat: x2 Second COVID19 Vaccination Abdulkadir: x2 Third COVID19 Vaccination Date: x2 Seasonal Allergies Seasonal Allergies: Yes Past Medical History Surgery/Hospitalization HX: left total knee, chronic chest pain, anxiety, personality disorder, mild MR, high cholesterol, hypothryoidism, right knee scope, gastritis, dvt, asthma Surgeries: Yes (LEFT TOTAL KNEE REPLACEMENT) Joint Replacement, Orthopedic Respiratory: Yes Asthma Cardiac: Yes ("CHRONIC CHEST PAIN"; DVT LEFT LEG 12/2020) Deep Vein Thrombosis, High Cholesterol Neurological: Yes (MILD MR) Genitourinary: No Gastrointestinal: Yes (GASTRITIS/GERD) Gastroesophageal Reflux Musculoskeletal: Yes (LEFT KNEE REPLACEMENT; RIGHT KNEE SCOPE) Arthritis Endocrine: Yes Hypothyroidsim HEENT: Yes (GLASSES) Loss of Vision: Bilateral Cancer: No 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; POLYSUBSTANCE ABUSE) Anxiety, Personality Disorder Integumentary: Yes ( CELLULITIS LEFT LEG) Blood Disorders: No Family Medical History SOCIAL HISTORY: -SMOKES 4 PPD, ALSO VAPES NICOTINE DAILY -ETOH--QUIT DRINKING A YEAR AGO, PER PT 10/07/21 -DENIES DRUG USE, BUT HAS TESTED + FOR METH ON MULTIPLE VISITS PT IS HOMELESS PAST SURGICAL HISTORY: -LEFT KNEE SURGERY -RIGHT KNEE SCOPE 02/[address] QUINTEROS PT HAD LEFT LEG DVT IN 2020, NON-COMPLIANT WITH MEDICATIONS Physical Exam Vital Signs Capillary Refill : General Appearance: WD/WN, no apparent distress, other (REEKS OF CIGARETTES. PT IS DIRTY AND MALODOROUS. THERE ARE BUGS CRAWLING OUT OF HIS BACKPACK) HEENT: other (NO SWELLING TO FACE OR LIPS) Cardiovascular: regular rate, rhythm Respiratory: no respiratory distress Gastrointestinal: non tender Back: normal inspection Extremities: no pedal edema, normal capillary refill Neurologic/Psychiatric: no motor/sensory deficits, alert, oriented x 3 Skin: normal color, warm/dry, rash (PT HAS PATCHY MACULOPAPULAR RASH SCATTERED OVER MOST OF BODY, ESPECIALLY LEGS, TRUNK, AND ARMS. THERE ARE SOME WITH LINEAR DISTRIBUTION. THERE ARE NO VESICLES OR OPEN OR WEEPING AREAS. NO SIGNS OF INFECTION. NO SWELLING NOTED. ), tattoos/piercings Progress/Results/Core Measures Results/Orders My Orders Orders - ALEXANDRA WEIR DO Prednisone Tablet (Deltasone Tablet) (08/27/22 03:30) Diphenhydramine Tablet (Benadryl Tablet) (08/27/22 03:30) Famotidine Tablet (Pepcid Tablet) (08/27/22 03:30) Progress Progress Note : Progress Note DISCUSSED ANTICIPATED COURSE, SYMPTOMATIC TREATMENT, MEDIATIONS, NEED FOR FOLLOW UP AND RETURN PRECAUTIONS GIVEN: -PREDNISONE -BENADRYL -PEPCID REVIEWED PRIOR RECORDS, PT WITH MULTIPLE VISITS FOR VARIOUS COMPLAINTS. Departure Impression Primary Impression: Contact dermatitis Additional Impression: Homeless Disposition: 01 HOME, SELF-CARE Condition: Stable Departure-Patient Inst. Decision time for Depature: 03:18 Referrals: [facility] (PCP/Family) Primary Care Physician Patient Instructions: Contact Dermatitis (DC) Add. Discharge Instructions: DO NOT SCRATCH TAKE BENADRYL 50 MG EVERY 4-6 HOURS FOR RASH AND ITCHING FOLLOW UP WITH [facility] IN 4-5 DAYS IF NO BETTER Scripts Hydrocortisone/Aloe Vera (Hydrocortisone Plus 1% Cream) 1 % Cream..g. 28.4 GM TP TID, #1 EA Prov: ALEXANDRA WEIR DO 08/27/22 Famotidine (Pepcid) 40 Mg Tablet 40 MG PO DAILY, #10 TAB Prov: ALEXANDRA WEIR DO 08/27/22 Prednisone (Prednisone) 20 Mg Tab 40 MG PO DAILY, #6 TAB 0 Refills Prov: ALEXANDRA WEIR DO 08/27/22 ALEXANDRA WEIR DO Aug 27, 2022 03:20
[2022-08-27] MEDS ORDERED: predniSONE 20 MG TAB PO ONE (03:30)
[2022-08-27] MEDS ORDERED: diphenhydrAMINE 25 MG TAB (BENADRYL) PO ONE (03:30)
[2022-08-27] MEDS ORDERED: FAMOTIDINE 20 MG (PEPCID) TABLET PO ONE (03:30)
== END 2022-08-27 03:30 | disposition home or self-care (01) ==
LOC: EDUNIT# 03:10 → ER 03:11
DX: L25.9 Unspecified contact dermatitis, unspecified cause (principal); F17.210 Nicotine dependence, cigarettes, uncomplicated; F17.290 Nicotine dependence, other tobacco product, uncomplicated; Z59.00 Homelessness unspecified
CPT/HCPCS: 99283